=== PATIENT | female | born 1940 | race African-American/Black ===

== ENCOUNTER 2017-06-08 11:57 | Inpatient (IN) | payer OTHER, BC ==
[2017-06-08 12:04] VITALS: BMI 28.3
--- NOTE | 2017-06-08 12:07 | PDOC ---
History of Present Illness - General Chief Complaint: Rectal Bleed Stated Complaint: RECTAL BLEED Time Seen by Provider: 06/08/17 12:06 - History of Present Illness Initial Comments: 06/08/17 12:08 Ms. Herrera is a 77 yo female w/ pmh of benign L renal mass s/p partial nephrectomy in 2004, HTN, DM, HLD, prior lower GI bleed who presents c/o a 1 day history of crampy abdominal pain and blood per rectum. She reports this is similar to her prior episode however it has been less in volume. The patient denies chest pain, shortness of breath, headache and dizziness. Denies fever, chills, nausea, vomit, diarrhea and constipation. Denies dysuria, frequency, urgency and hematuria. Allergies:NKDA Past History - Past Medical History Allergies/Adverse Reactions: Allergies Allergy/AdvReac Type Severity Reaction Status Date / Time No Known Allergies Allergy Verified 06/08/17 12:00 Home Medications: Ambulatory Orders Atenolol [Tenormin -] 50 mg PO DAILY 12/30/15 Atorvastatin Ca [Lipitor] 10 mg PO HS 12/30/15 Buspirone HCl [Buspar -] 10 mg PO DAILY 12/30/15 Aspirin [ASA -] 81 mg PO DAILY 01/27/16 Ibuprofen 800 mg PO TID PRN 01/27/16 Omeprazole 40 mg PO DAILY 01/27/16 Anemia: No Asthma: No Cancer: No Cardiac Disorders: No CVA: No COPD: No CHF: No DVT: No Dementia: No Diabetes: Yes (boderline DM) GI Disorders: Yes (colonoscopy) Disorders: No HTN: Yes Hypercholesterolemia: Yes Liver Disease: No Seizures: No Thyroid Disease: No - Surgical History Abdominal Surgery: No Appendectomy: No Cardiac Surgery: No Cholecystectomy: No Lung Surgery: No Neurologic Surgery: No Orthopedic Surgery: No - Suicide/Smoking/Psychosocial Hx Smoking History: Former smoker Have you smoked in the past 12 months: Yes Number of Cigarettes Smoked Daily: 2 If you are a former smoker, when did you quit?: 5 YR AGO Information on smoking cessation initiated: No Hx Alcohol Use: No Drug/Substance Use Hx: No Substance Use Type: None Hx Substance Use Treatment: No Review of Systems - Review of Systems Comments:: 06/08/17 12:08 GENERAL/CONSTITUTIONAL: No fever or chills. No weakness. HEAD, EYES, EARS, NOSE AND THROAT: No change in vision. No ear pain or discharge. No sore throat. CARDIOVASCULAR: No chest pain or shortness of breath RESPIRATORY: No cough, wheezing, or hemoptysis. GASTROINTESTINAL: +Rectal bleeding as described. General abdominal cramping. No nausea, vomiting, diarrhea or constipation. GENITOURINARY: No dysuria, frequency, or change in urination. MUSCULOSKELETAL: No joint or muscle swelling or pain. No neck or back pain. SKIN: No rash NEUROLOGIC: No headache, vertigo, loss of consciousness, or change in strength/ sensation. ENDOCRINE: No increased thirst. No abnormal weight change HEMATOLOGIC/LYMPHATIC: No anemia, easy bleeding, or history of blood clots. ALLERGIC/IMMUNOLOGIC: No hives or skin allergy. 06/08/17 14:13 *Physical Exam - Vital Signs Last Vital Signs Temp Pulse Resp BP Pulse Ox 98.6 F 90 18 130/76 100 06/08/17 12:00 06/08/17 12:00 06/08/17 12:00 06/08/17 12:00 06/08/17 12:00 - Physical Exam Comments: 06/08/17 12:08 GENERAL: Awake, alert, and fully oriented, in no acute distress HEAD: No signs of trauma, normocephalic, atraumatic EYES: PERRLA, EOMI, sclera anicteric, conjunctiva clear ENT: Auricles normal inspection, hearing grossly normal, nares patent, oropharynx clear without exudates. Moist mucosa NECK: Normal ROM, supple, no lymphadenopathy, JVD, or masses LUNGS: No distress, speaks full sentences, clear to auscultation bilaterally HEART: Regular rate and rhythm, normal S1 and S2, no murmurs, rubs or gallops, peripheral pulses normal and equal bilaterally. ABDOMEN: +Diffusely tender to palpation. Soft, normoactive bowel sounds. No guarding, no rebound. No masses EXTREMITIES: Normal inspection, Normal range of motion, no edema. No clubbing or cyanosis. NEUROLOGICAL: Cranial nerves II through XII grossly intact. Normal speech, normal gait, no focal sensorimotor deficits SKIN: Warm, Dry, normal turgor, no rashes or lesions noted. ED Treatment Course - LABORATORY CBC & Chemistry Diagram: 06/08/17 13:13 06/08/17 13:13 Medical Decision Making - Medical Decision Making 06/08/17 14:13 Ms. Herrera is a 77 yo female w/ pmh as described who presents for evaluation of cramps and rectal bleeding. Imaging and labs ordered as below for evaluation. 06/08/17 15:41 CT revealed diverticulitis and diverticulosis. GI physician (Eber) paged. 06/08/17 17:04 Discussed case w/ Dr. Velázquez. Would like admitted with Ceftriaxone / Flagyl. 06/08/17 17:05 Inpatient team paged for admission. *DC/Admit/Observation/Transfer Diagnosis at time of Disposition: Diverticulitis Diverticulosis Qualifiers: Diverticulosis site: unspecified location Diverticulosis bleeding: diverticulosis with bleeding Qualified Code(s): K57.91 - Diverticulosis of intestine, part unspecified, without perforation or abscess with bleeding - Discharge Dispostion Admit: Yes - Referrals Referrals: Rosana Walker [Primary Care Provider] - - Patient Instructions - Post Discharge Activity
[2017-06-08 13:27] LABS: BASO % 0.5 % (0-2.0); EOS % 0.8 % (0-4.5); LYMPH % 11.1 % (8-40); MCH 29.8 pg (25.7-33.7); MCHC 33.4 g/dl (32.0-36.0); MEAN PLT VOLUME 7.5 fl (7.5-11.1); MONO % 7.8 % (3.8-10.2); NEUT % 79.8 % (42.8-82.8); PLATELET COUNT 264 K/MM3 (134-434); RBC 4.05 M/mm3 (3.60-5.2); RDW 12.5 % (11.6-15.6); WHITE BLOOD COUNT 12.1 K/mm3 (4.0-10.0)
[2017-06-08] MEDS ORDERED: ACETAMINOPHEN 1000 MG/100 ML VIAL (NON FORMULARY) IVPB ONE (13:33)
--- NOTE | 2017-06-08 13:49 | PDOC ---
Attending Attestation - Resident Resident Name: Alfred Barrientos - ED Attending Attestation I have performed the following: I have examined & evaluated the patient, The case was reviewed & discussed with the resident, I agree w/resident's findings & plan, Exceptions are as noted - HPI HPI: 06/08/17 13:46 77 year old female with pmh of benign L renal mass s/p partial nephrectomy in 2004, HTN, DM, HLD, diverticular bleed p/w LLQ pain and red blood per rectum. The patient reports LLQ pain. Has had prior hx of diverticular bleed. No fevers , chills, diarrhea. Does not take anticoagulants. - Physicial Exam PE: 06/08/17 13:48 GENERAL: Awake, alert, and fully oriented, in no acute distress. HEAD: No signs of trauma EYES: PERRLA, EOMI, sclera anicteric, conjunctiva clear ENT: Auricles normal inspection, hearing grossly normal, nares patent NECK: Normal ROM, supple LUNGS: Breath sounds equal, clear to auscultation bilaterally. No wheezes, and no crackles HEART: Regular rate and rhythm, normal S1 and S2, no murmurs, rubs or gallops ABDOMEN: Soft. No guarding, no rebound. No masses. TTP LLQ. EXTREMITIES: Normal range of motion, no edema. No clubbing or cyanosis. No cords, erythema, or tenderness NEUROLOGICAL: Cranial nerves II through XII grossly intact. Normal speech SKIN: Warm, Dry, normal turgor, no rashes or lesions noted. RECTAL: As per Resident - Medical Decision Making 06/08/17 13:49 Vital Signs Temp Pulse Resp BP Pulse Ox 98.6 F 90 18 130/76 100 06/08/17 12:00 06/08/17 12:00 06/08/17 12:00 06/08/17 12:00 06/08/17 12:00 Concerning for lower GI bleed such as diverticular bleed. Given LLQ pain, will need CT abdomen and pelvis. Labs, consult GI. 06/08/17 15:51 CBC, BMP 06/08/17 13:13 06/08/17 13:13 CMP Sodium 142 mmol/L (136-145) 06/08/17 13:13 Potassium 4.0 mmol/L (3.5-5.1) 06/08/17 13:13 Chloride 104 mmol/L (98-107) 06/08/17 13:13 Carbon Dioxide 28 mmol/L (21-32) 06/08/17 13:13 Anion Gap 10 (8-16) 06/08/17 13:13 BUN 24 mg/dL (7-18) H 06/08/17 13:13 Creatinine 1.2 mg/dL (0.55-1.02) H 06/08/17 13:13 Creat Clearance w eGFR 43.80 (>60) 06/08/17 13:13 Random Glucose 93 mg/dL (74-106) 06/08/17 13:13 Lactic Acid 0.7 mmol/L (0.0-2.0) 06/08/17 13:13 Calcium 9.3 mg/dL (8.5-10.1) 06/08/17 13:13 Total Bilirubin 0.7 mg/dL (0.2-1.0) D 06/08/17 13:13 AST 29 U/L (15-37) 06/08/17 13:13 ALT 24 U/L (12-78) 06/08/17 13:13 Alkaline Phosphatase 78 U/L (45-117) 06/08/17 13:13 Total Protein 7.2 g/dl (6.4-8.2) 06/08/17 13:13 Albumin 3.3 g/dl (3.4-5.0) L 06/08/17 13:13 Lipase 271 U/L (73-393) 06/08/17 13:[address] abdomen and pelvis reviewed. Acute diverticulitis. Will consult her GI physician for disposition. Will need antibiotics. Will reassess patient for bleeding. If the bleeding has stopped, and the pt's GI physician is okay with discharge, the patient can be discharged with antibiotics. However, if patient is still bleeding and/or GI physician recommends admission, will admit patient for lower GI bleed and diverticulitis.
[2017-06-08 13:57] LABS: ALBUMIN 3.3 g/dl (3.4-5.0); ALK PHOS 78 U/L (45-117); ANION GAP 10 (8-16); BILIRUBIN,TOTAL 0.7 mg/dL (0.2-1.0); BLOOD UREA NITROGEN 24 mg/dL (7-18); CALCIUM 9.3 mg/dL (8.5-10.1); CHLORIDE 104 mmol/L (98-107); CO2 28 mmol/L (21-32); CREATININE 1.2 mg/dL (0.55-1.02); GLUCOSE,RANDOM 93 mg/dL (74-106); SGOT/AST 29 U/L (15-37); SGPT/ALT 24 U/L (12-78); SODIUM 142 mmol/L (136-145); TOT PROT 7.2 g/dl (6.4-8.2)
[2017-06-08 13:58] LABS: LIPASE 271 U/L (73-393)
[2017-06-08] MEDS ORDERED: ACETAMINOPHEN INJECTION 100 ML IVPB ONE (15:44)
[2017-06-08] MEDS ORDERED: CEFTRIAXONE 1,000 MG in DEXTROSE 5%-WATER - 50 ML IVPB ONE (17:09)
--- NOTE | 2017-06-08 17:29 | HP ---
CHIEF COMPLAINT: Rectal bleeding x1 day PCP: Dr. Walker HISTORY OF PRESENT ILLNESS: 77 year old woman with pmh of HTN, HLD, partial nephrectomy for benign renal mass (2004), prior episode of hematochezia in 01/2016, who presents with one day of rectal bleeding beginning this AM. Pt was in her normal state of healthy last night, asymptomatic with no GI symptoms. This AM, pt awoke with crampy, bandlike lower abdominal, worsened by ambulation, non-radiating with no alleviating factors. Pt defecated in AM and noted roughly 1 cup of BRB in toilet and poorly formed stool. Pt endorses minimal pain with defecation, no sensation of straining or incomplete defecation, no mucoid BM, no diarrhea or change in stool caliber. Pt endorses 3-4 episodes of similar hematochezia in AM and then came to ED. Pt denies any recent GI symptoms, sick contacts, changes in diet, chronic GI conditions. Denies f/c/n/v, LOVING, CP, sob, cough, back pain, dysuria, constipation, recent diarrhea, rashes, epistaxis, hemoptysis or hematochezia. Pt takes ASA. Follows with Dr. Velázquez, with most recent colonoscopy in early 2017, with normal results per pt. Pt with prior admission in 01/2016 for diverticular GI bleed with spontaneous resolution. ER course was notable for: (1)CT Ab/Pelvis notable for acute diverticulitis (2)WBC 12.1. Hgb 12, Cr 1.2 (3)FOBT + Recent Travel: None PAST MEDICAL HISTORY: HTN HLD DM Prior diverticular bleed PAST SURGICAL HISTORY: L renal neprectomy in 2004 for benign renal mass Social History: Smoking: former smoker, quit 5 years ago, 2 cigs per day Alcohol: No Drugs: No Family History: NC Allergies No Known Allergies Allergy (Verified 06/08/17 12:00) HOME MEDICATIONS: Home Medications Medication Instructions Recorded Atenolol [Tenormin -] 50 mg PO DAILY 12/30/15 Atorvastatin Ca [Lipitor] 10 mg PO HS 12/30/15 Buspirone HCl [Buspar -] 10 mg PO DAILY 12/30/15 Aspirin [ASA -] 81 mg PO DAILY 01/27/16 Ibuprofen 800 mg PO TID PRN 01/27/16 Omeprazole 40 mg PO DAILY 01/27/16 REVIEW OF SYSTEMS CONSTITUTIONAL: Absent: fever, chills, diaphoresis, generalized weakness, malaise, loss of appetite, weight change HEENT: Absent: rhinorrhea, nasal congestion, throat pain, throat swelling, difficulty swallowing, mouth swelling, ear pain, eye pain, visual changes CARDIOVASCULAR: Absent: chest pain, syncope, palpitations, irregular heart rate, lightheadedness , peripheral edema RESPIRATORY: Absent: cough, shortness of breath, dyspnea with exertion, orthopnea, wheezing, stridor, hemoptysis GASTROINTESTINAL: cramping, abdominal pain, hematochezia Absent: abdominal distension, nausea, vomiting, diarrhea, constipation, melena GENITOURINARY: Absent: dysuria, frequency, urgency, hesitancy, hematuria, flank pain, genital pain MUSCULOSKELETAL: Pain in L knee Absent: myalgia, joint swelling, back pain, neck pain SKIN: Absent: rash, itching, pallor HEMATOLOGIC/IMMUNOLOGIC: Absent: easy bleeding, easy bruising, lymphadenopathy, frequent infections ENDOCRINE: Absent: unexplained weight gain, unexplained weight loss, heat intolerance, cold intolerance NEUROLOGIC: Absent: headache, focal weakness or paresthesias, dizziness, unsteady gait, seizure, mental status changes, bladder or bowel incontinence PHYSICAL EXAMINATION Vital Signs - 24 hr 06/08/17 06/08/17 12:00 12:25 Temperature 98.6 F Pulse Rate 90 Respiratory 18 Rate Blood Pressure 130/76 O2 Sat by Pulse 100 97 Oximetry (%) GENERAL: Elderly woman in NAD, A&Ox3 HEAD: NCAT EYES: Pupils equal, round and reactive to light, extraocular movements intact, sclera anicteric, conjunctiva clear. No lid lag. EARS, NOSE, THROAT: No evidence of epistaxis, nasal septal defects. Ears normal , nares patent, oropharynx clear without exudates. Moist mucous membranes. NECK: Normal range of motion, supple without lymphadenopathy, JVD, or masses. LUNGS: Decreased air entry at bases. Otherwise, clear to auscultation bilaterally. No wheezes, and no crackles. No accessory muscle use. HEART: Regular rate and rhythm, normal S1 and S2 without murmur, rub or gallop. ABDOMEN: TTP in all four quadrants, most intensely in LLQ. Soft, ND, normoactive bowel sounds, voluntary guarding, no masses. No hepatomegaly or splenomegaly. MUSCULOSKELETAL: Normal range of motion at all joints. No bony deformities or tenderness. No CVA tenderness. UPPER EXTREMITIES: 2+ pulses, warm, well-perfused. No cyanosis. No clubbing. No peripheral edema. LOWER EXTREMITIES: 2+ DP/PT pulses, warm, well-perfused. No calf tenderness. No peripheral edema. Restricted movement in knees secondary to arthritic pain. NEUROLOGICAL: Cranial nerves II-XII intact. Normal speech. Gait not evaluated. PSYCHIATRIC: Cooperative. Good eye contact. Appropriate mood and affect. Pleasant Laboratory Results - last 24 hr CBC, BMP 06/08/17 13:13 06/08/17 13:13 06/08/17 06/08/17 06/08/17 12:35 13:13 13:13 WBC 12.1 H D RBC 4.05 D Hgb 12.0 D Hct 36.0 D MCV 89.0 MCH 29.8 MCHC 33.4 RDW 12.5 Plt Count 264 D MPV 7.5 D Neutrophils % 79.8 Lymphocytes % 11.1 D Monocytes % 7.8 Eosinophils % 0.8 Basophils % 0.5 Sodium 142 Potassium 4.0 Chloride 104 Carbon Dioxide 28 Anion Gap 10 BUN 24 H Creatinine 1.2 H Creat Clearance w eGFR 43.80 Random Glucose 93 Lactic Acid Calcium 9.3 Total Bilirubin 0.7 D AST 29 ALT 24 Alkaline Phosphatase 78 Total Protein 7.2 Albumin 3.3 L Lipase 271 Stool Occult Blood Positive 06/08/17 13:13 WBC RBC Hgb Hct MCV MCH MCHC RDW Plt Count MPV Neutrophils % Lymphocytes % Monocytes % Eosinophils % Basophils % Sodium Potassium Chloride Carbon Dioxide Anion Gap BUN Creatinine Creat Clearance w eGFR Random Glucose Lactic Acid 0.7 Calcium Total Bilirubin AST ALT Alkaline Phosphatase Total Protein Albumin Lipase Stool Occult Blood No micro CT ab/pelvis 06/08 - Evidence of sigmoid diverticulitis. No evidence of fluid collection or free air. CXR 06/08 - No acute disease ASSESSMENT/PLAN: 77 year old woman with pmh of HTN, HLD, partial nephrectomy for benign renal mass (2004), prior episode of hematochezia in 01/2016, who presents with one day of rectal bleeding beginning this AM. #Hematochezia - Hgb 12 on presentation; pt with one further episode on presentation - GI consulted - Dr. Velázquez - Serial CBCs q8h - monitor for further bleeding - Hold home ASA - Rocephin/flagyl - type and cross, PT/INR - Will require repeat colonoscopy as outpt 6-8 weeks per GI - Morphine for pain control - Zofran for n/v #JACQUES - Cr 1.2 - IVFs - Trend Cr - Avoid nephrotoxic agents - Renal f/u as outpt #Leukocytosis - WBC 12; No fever on presentation, vitals stable - trend fever, WBC count - Serial CBCs #HTN - Continue with home BB - vitals q4h #DM - unknown if DM. - ISS, BGMs q4h - Hgb A1c #HLD - c/w home statin FEN NS 75cc/hr Daily lytes NPO for now PPX PPI SCDs Plan discussed with attending, Dr. Cristóbal Mercado, PGY1 Visit type - Emergency Visit Emergency Visit: Yes Care time: The patient presented to the Emergency Department on the above date and was hospitalized for further evaluation of their emergent condition. - New Patient This patient is new to me today: Yes Date on this admission: 06/08/17 - Critical Care Critical Care patient: No Hospitalist Screening - Colonoscopy Questionnaire Colonoscopy Questionnaire: Colonoscopy Questionnaire - Patient: 50 - 75 years old and never had a screening colonoscopy: No History of colon or rectal polyps, or CA: No History of IBD, Crohn's disease or UC: No History of abdominal radiation therapy as a child: Unknown - Relative: 1 with colon or rectal CA, or polyps at age 60 or younger: Unknown Colon or rectal CA diagnosed at age 45 or younger: Unknown Multiple relatives with colon or rectal CA: Unknown - Outcome: Screening Result: Negative Screen
[2017-06-08] MEDS ORDERED: morphine CARPU-JECT 2 MG/1 ML DISP.SYRIN IVPUSH ONE (17:39)
[2017-06-08] MEDS ORDERED: CEFTRIAXONE 1 GM/50 ML BAG ONE (17:42)
[2017-06-08] MEDS: SODIUM CHLORIDE 0.45% 1,000 ML IV SCH (17:42)
[2017-06-08] MEDS ORDERED: morphine SULFATE 4 MG/ML VIAL ONE (18:00)
--- NOTE | 2017-06-08 18:34 | PN ---
Teaching Attending Note Name of Resident: Silvestre Mercado ATTENDING PHYSICIAN STATEMENT I saw and evaluated the patient. I reviewed the resident's note and discussed the case with the resident. I agree with the resident's findings and plan as documented. SUBJECTIVE:77yo F with PMH HTN, DM, R renal mass s/p partial nephrectomy and recent diverticular bleed in January 2016 presented to the Er wt diffuse abdominal pain with hematochezia. states she was in normal state pf health till earlier today and went to the bathroom where she developed diffuse crampy abdominal pain and noted about a cup of bright red blood in the toilet. denies Cp, SOB, fever, chills, N/V/C/D. This is similar in episode to recent bleed only not as bad. states she did have another bloody BM since arrival to the ER. did have colonoscopy last year and reports it as normal. did take her medications this morning OBJECTIVE: Last Vital Signs Temp Pulse Resp BP Pulse Ox 98.6 F 90 18 130/76 97 06/08/17 12:00 06/08/17 12:00 06/08/17 12:00 06/08/17 12:06/08/17 12:25 General NAD CV S1 S2 RRR no murmur/rub/gallop Lungs CTA B/L No wheezing/rales/rhonchi Abdomen soft diffusely tender worse in LLQ. normoactive BS no guarding or rebound Extremities no pedal edema ASSESSMENT AND PLAN: 77yo F with PMH HTN, DM, R renal mass s/p partial nephrectomy and recent diverticular bleed in January 2017 presented to the Er wt diffuse abdominal pain with hematochezia. 1. Hematochezia- likely diverticular bleed. may not show tachycardia as on betablocker. trend Hgb Q8H. check coags, type and screen. Start NPO, IVF, pain and nausea control. hold oral medications. never received txn in the past. 2. Acute Diverticulitis- NPO, IVF, Ceftriaxone and Flagyl. GI consulted. will need repeat colonoscopy in 6-8 weeks 3. JACQUES- due to dehydration. IVF. consider renal u/s if worsens. 4. HTN- cont atenolol for now 5. DM- unsure if DM. A1c in 2016 was normal and not on home medication. check A1c 6. R renal mass s/p nephrectomy 7. DVT ppx- SCD.
[2017-06-08] MEDS ORDERED: ONDANSETRON 4 MG/2 ML VIAL IVPUSH PRN (18:58)
[2017-06-08] MEDS ORDERED: morphine SULFATE 4 MG/ML VIAL IVPUSH PRN (19:09)
[2017-06-08 22:04] LABS: BASO % 0.3 % (0-2.0); EOS % 1.2 % (0-4.5); HEMATOCRIT 33.3 % (32.4-45.2); HEMOGLOBIN 11.2 GM/dL (10.7-15.3); LYMPH % 12.7 % (8-40); MCH 30.2 pg (25.7-33.7); MCHC 33.8 g/dl (32.0-36.0); MEAN CELL VOLUME 89.4 fl (80-96); MEAN PLT VOLUME 8.2 fl (7.5-11.1); MONO % 8.3 % (3.8-10.2); NEUT % 77.5 % (42.8-82.8); PLATELET COUNT 257 K/MM3 (134-434); RBC 3.72 M/mm3 (3.60-5.2); RDW 12.5 % (11.6-15.6); WHITE BLOOD COUNT 11.8 K/mm3 (4.0-10.0)
[2017-06-08 22:18] LABS: ALBUMIN 3.1 g/dl (3.4-5.0); ALK PHOS 75 U/L (45-117); ANION GAP 6 (8-16); BILIRUBIN,TOTAL 0.5 mg/dL (0.2-1.0); BLOOD UREA NITROGEN 21 mg/dL (7-18); CHLORIDE 106 mmol/L (98-107); CO2 27 mmol/L (21-32); CREATININE 1.1 mg/dL (0.55-1.02); GLUCOSE,RANDOM 80 mg/dL (74-106); POTASSIUM 3.8 mmol/L (3.5-5.1); SGOT/AST 24 U/L (15-37); SGPT/ALT 21 U/L (12-78); SODIUM 139 mmol/L (136-145); TOT PROT 6.8 g/dl (6.4-8.2)
[2017-06-08 22:29] LABS: INR 1.12 (0.82-1.09); PROTHROMBIN TIME (PATIENT) 12.7 SEC (9.98-11.88)
[2017-06-08] MEDS: ATORVASTATIN CA 10 MG TABLET (FP) PO SCH (23:34)
[2017-06-08] MEDS: INSULIN SLIDING SCALE (NOVOLOG) 1 VIAL SQ SCH (23:49)
[2017-06-09] MEDS: INSULIN SLIDING SCALE (NOVOLOG) 1 VIAL SQ SCH ×4 (07:06→22:31)
[2017-06-09 07:07] LABS: BASO % 0.5 % (0-2.0); EOS % 1.8 % (0-4.5); HEMOGLOBIN 11.3 GM/dL (10.7-15.3); LYMPH % 8.7 % (8-40); MCH 29.8 pg (25.7-33.7); MCHC 33.4 g/dl (32.0-36.0); MEAN CELL VOLUME 89.3 fl (80-96); MEAN PLT VOLUME 7.9 fl (7.5-11.1); MONO % 8.3 % (3.8-10.2); NEUT % 80.7 % (42.8-82.8); PLATELET COUNT 253 K/MM3 (134-434); RDW 12.5 % (11.6-15.6)
[2017-06-09 07:16] LABS: INR 1.12 (0.82-1.09); PROTHROMBIN TIME (PATIENT) 12.6 SEC (9.98-11.88)
[2017-06-09 07:34] LABS: ANION GAP 8 (8-16); BLOOD UREA NITROGEN 17 mg/dL (7-18); CALCIUM 9.3 mg/dL (8.5-10.1); CHLORIDE 104 mmol/L (98-107); CO2 28 mmol/L (21-32); CREATININE 1.1 mg/dL (0.55-1.02); GLUCOSE,RANDOM 89 mg/dL (74-106); MAGNESIUM 1.9 mg/dL (1.8-2.4); PHOSPHOROUS 3.4 mg/dL (2.5-4.9); SGOT/AST 23 U/L (15-37); SGPT/ALT 20 U/L (12-78); SODIUM 140 mmol/L (136-145)
[2017-06-09 07:35] LABS: ALK PHOS 73 U/L (45-117); BILIRUBIN,TOTAL 0.6 mg/dL (0.2-1.0); TOT PROT 6.6 g/dl (6.4-8.2)
[2017-06-09] MEDS: SODIUM CHLORIDE 0.45% 1,000 ML IV SCH ×2 (08:00→18:54)
--- NOTE | 2017-06-09 08:47 | EKG ---
Test Reason : Blood Pressure : / mmHG Vent. Rate : 081 BPM Atrial Rate : 081 BPM P-R Int : 144 ms QRS Dur : 078 ms QT Int : 358 ms P-R-T Axes : 066 007 049 degrees QTc Int : 415 ms NORMAL SINUS RHYTHM NORMAL ECG WHEN COMPARED WITH ECG OF 16-DEC-2016 12:52, NO SIGNIFICANT CHANGE WAS FOUND Confirmed by AUSTEN SHERMAN MD ([id number]) on 06/09/2017 8:47:01 AM Referred By: Confirmed By:AUSTEN SHERMAN MD
[2017-06-09] MEDS ORDERED: PT OWN MED DRAWER 7, Y5N ONE (10:24)
[2017-06-09] MEDS ORDERED: cefTRIAXone SODIUM 1 GM VIAL ONE (10:25)
[2017-06-09] MEDS ORDERED: DEXTROSE 5%-WATER - 50 ML IVPB ONE (10:25)
[2017-06-09] MEDS: CEFTRIAXONE 1 GM in DEXTROSE 5%-WATER - 50 ML IVPB SCH (10:30)
[2017-06-09] MEDS: ATENOLOL 50 MG TABLET (FP) PO SCH (10:37)
--- NOTE | 2017-06-09 13:37 | PN ---
Progress Note (short form) - Note Progress Note: continues to have diffuse abdominal pain. no more BM or BRBPR. requesting to eat. denies CP, SOB, fever, chills, N/V/C/D. admits to straining for 4 days then taking some milk of mag day prior to BRBPR. Current Medications Generic Name Dose Route Start Last Admin Trade Name Freq PRN Reason Stop Dose Admin Atenolol 50 mg 06/09/17 10:00 06/09/17 10:37 Tenormin - PO 50 mg DAILY KITA Administration Atorvastatin Calcium 10 mg 06/08/17 22:00 06/08/17 23:34 Lipitor - PO 10 mg HS KITA Administration Buspirone HCl 10 mg 06/09/17 10:00 Buspar - PO DAILY KITA Sodium Chloride 1,000 mls @ 75 mls/hr 06/08/17 17:30 06/09/17 08:00 1/2 Normal Saline IV 75 mls/hr ASDIR KITA Administration Ceftriaxone Sodium 1 gm/ 50 mls @ 100 mls/hr 06/09/17 10:00 06/09/17 10:30 Dextrose IVPB 100 mls/hr DAILY KITA Administration Protocol Metronidazole 500 mg in 100 mls @ 100 mls/hr 06/09/17 02:00 06/09/17 10:30 Flagyl 500mg Premixed Ivpb - IVPB 100 mls/hr Q8H-IV KITA Administration Insulin Aspart 1 vial 06/08/17 22:00 06/09/17 07:06 Novolog Vial Sliding Scale - SQ Not Given ACHS KITA Protocol Morphine Sulfate 2 mg 06/08/17 19:09 06/08/17 23:36 Morphine Sulfate IVPUSH 2 mg Q4H PRN Administration PAIN LEVEL 6-10 Ondansetron HCl 4 mg 06/08/17 18:58 Zofran Injection IVPUSH Q4H PRN NAUSEA AND/OR VOMITING Last Vital Signs Temp Pulse Resp BP Pulse Ox 98 F 81 18 151/76 98 06/09/17 10:00 06/09/17 10:00 06/09/17 10:00 06/09/17 10:00 06/09/17 01:31 General NAD CV S1 S2 RRR no murmur/rub/gallop Lungs CTA B/L No wheezing/rales/rhonchi Abdomen soft diffusely tender worse in LLQ. normoactive BS no guarding or rebound Extremities no pedal edema CBCD WBC 11.0 K/mm3 (4.0-10.0) H 06/09/17 06:45 RBC 3.80 M/mm3 (3.60-5.2) 06/09/17 06:45 Hgb 11.3 GM/dL (10.7-15.3) 06/09/17 06:45 Hct 34.0 % (32.4-45.2) 06/09/17 06:45 MCV 89.3 fl (80-96) 06/09/17 06:45 MCHC 33.4 g/dl (32.0-36.0) 06/09/17 06:45 RDW 12.5 % (11.6-15.6) 06/09/17 06:45 Plt Count 253 K/MM3 (134-434) 06/09/17 06:45 MPV 7.9 fl (7.5-11.1) 06/09/17 06:45 CMP Sodium 140 mmol/L (136-145) 06/09/17 06:45 Potassium 4.0 mmol/L (3.5-5.1) 06/09/17 06:45 Chloride 104 mmol/L (98-107) 06/09/17 06:45 Carbon Dioxide 28 mmol/L (21-32) 06/09/17 06:45 Anion Gap 8 (8-16) 06/09/17 06:45 BUN 17 mg/dL (7-18) 06/09/17 06:45 Creatinine 1.1 mg/dL (0.55-1.02) H 06/09/17 06:45 Creat Clearance w eGFR 48.42 (>60) 06/09/17 06:45 Calcium 9.3 mg/dL (8.5-10.1) 06/09/17 06:45 Total Bilirubin 0.6 mg/dL (0.2-1.0) 06/09/17 06:45 AST 23 U/L (15-37) 06/09/17 06:45 ALT 20 U/L (12-78) 06/09/17 06:45 Alkaline Phosphatase 73 U/L (45-117) 06/09/17 06:45 Total Protein 6.6 g/dl (6.4-8.2) 06/09/17 06:45 Albumin 3.0 g/dl (3.4-5.0) L 06/09/17 06:45 ASSESSMENT AND PLAN: 77yo F with PMH HTN, DM, R renal mass s/p partial nephrectomy and recent diverticular bleed in January 2017 presented to the Er wtih diffuse abdominal pain with hematochezia. 1. Hematochezia- likely diverticular bleed. no repeat episodes. likely due to constipation and straining followed by osmotic diarrhea. Hgb has been stable. will trial on liquids to see if tolerate. check UA to evaluate if diffuse pain is from infection. GI consulted. informed pt if develops pain while eating will need to stop. 2. Acute Diverticulitis- trials of clears. Cont IVF, Ceftriaxone and Flagyl day 2. GI consulted. will need repeat colonoscopy in 6-8 weeks 3. JACQUES- due to dehydration. improved 4. HTN- cont atenolol for now 5. DM- unsure if DM. A1c in 2016 was normal and not on home medication. check A1c 6. R renal mass s/p nephrectomy 7. DVT ppx- SCD. Visit type - Emergency Visit Emergency Visit: Yes ED Registration Date: 06/08/17 Care time: The patient presented to the Emergency Department on the above date and was hospitalized for further evaluation of their emergent condition. - New Patient This patient is new to me today: No - Critical Care Critical Care patient: No - Discharge Referral [facility]erred to [facility] Med [facility] No
[2017-06-09] MEDS: busPIRone HCL 10 MG TABLET (FP) PO SCH (18:55)
[2017-06-09] MEDS: ATORVASTATIN CA 10 MG TABLET (FP) PO SCH (22:26)
[2017-06-09 22:34] LABS: URINE APPEARANCE SLCLOUDY; URINE BILIRUBIN NEGATIVE (<2.0 mg/dL); URINE COLOR LTYELLOW; URINE GLUCOSE (UA) NEGATIVE (NEGATIVE); URINE KETONE NEGATIVE (NEGATIVE); URINE NITRITE NEGATIVE (NEGATIVE); URINE UROBILINOGEN NEGATIVE mg/dL (0.2-1.0)
[2017-06-09 22:36] LABS: URINE LEUK ESTERASE 3+ (NEGATIVE); URINE PROTEIN 1+ (NEGATIVE)
[2017-06-09 22:37] LABS: EPI CELLS FEW /HPF (FEW)
[2017-06-10 06:49] LABS: HEMATOCRIT 33.6 % (32.4-45.2); HEMOGLOBIN 11.4 GM/dL (10.7-15.3); MCH 30.5 pg (25.7-33.7); MCHC 33.9 g/dl (32.0-36.0); MEAN CELL VOLUME 89.8 fl (80-96); MEAN PLT VOLUME 7.8 fl (7.5-11.1); PLATELET COUNT 257 K/MM3 (134-434); RBC 3.74 M/mm3 (3.60-5.2); RDW 12.4 % (11.6-15.6); WHITE BLOOD COUNT 9.4 K/mm3 (4.0-10.0)
[2017-06-10] MEDS: INSULIN SLIDING SCALE (NOVOLOG) 1 VIAL SQ SCH ×2 (07:04→12:01)
[2017-06-10] MEDS ORDERED: cefTRIAXone SODIUM 1 GM VIAL ONE (09:15)
[2017-06-10] MEDS ORDERED: PT OWN MED DRAWER 7, Y5N ONE (09:15)
[2017-06-10] MEDS ORDERED: DEXTROSE 5%-WATER - 50 ML IVPB ONE (09:15)
[2017-06-10] MEDS: ATENOLOL 50 MG TABLET (FP) PO SCH (09:48)
[2017-06-10] MEDS: CEFTRIAXONE 1 GM in DEXTROSE 5%-WATER - 50 ML IVPB SCH (09:49)
[2017-06-10] MEDS: busPIRone HCL 10 MG TABLET (FP) PO SCH (09:50)
--- NOTE | 2017-06-10 10:22 | DS ---
Physical Exam: SUBJECTIVE: Patient seen and examined OBJECTIVE: Vital Signs Period Temp Pulse Resp BP Sys/Sylvester Pulse Ox Last 24 Hr 98.2 F-98.8 F 61-74 18-19 126-157/66-88 98-98 PHYSICAL EXAM GENERAL: The patient is awake, alert, and fully oriented, in no acute distress. HEAD: Normal with no signs of trauma. EYES: PERRL, extraocular movements intact, sclera anicteric, conjunctiva clear. ENT: Ears normal, nares patent, oropharynx clear without exudates, moist mucous membranes. NECK: Trachea midline, full range of motion, supple. LUNGS: Breath sounds equal, clear to auscultation bilaterally, no wheezes, no crackles, no accessory muscle use. HEART: Regular rate and rhythm, S1, S2 without murmur, rub or gallop. ABDOMEN: Soft, nontender, nondistended, normoactive bowel sounds, no guarding, no rebound, no hepatosplenomegaly, no masses. EXTREMITIES: 2+ pulses, warm, well-perfused, no edema. NEUROLOGICAL: Cranial nerves II through XII grossly intact. Normal speech, gait not observed. PSYCH: Normal mood, normal affect. SKIN: Warm, dry, normal turgor, no rashes or lesions noted. LABS Laboratory Results - last 24 hr 06/09/17 06/09/17 06/09/17 06:00 13:52 17:20 WBC RBC Hgb Hct MCV MCH MCHC RDW Plt Count MPV POC Glucometer 86 86 Hemoglobin A1c % 5.8 Urine Color Urine Appearance Urine pH Ur Specific [place] Urine Protein Urine Glucose (UA) Urine Ketones Urine Blood Urine Nitrite Urine Bilirubin Urine Urobilinogen Ur Leukocyte Esterase Urine WBC (Auto) Urine RBC (Auto) Ur Epithelial Cells 06/09/17 06/09/17 06/10/17 22:00 22:30 05:36 WBC RBC Hgb Hct MCV MCH MCHC RDW Plt Count MPV POC Glucometer 85 84 Hemoglobin A1c % Urine Color Ltyellow Urine Appearance Slcloudy Urine pH 7.0 D Ur Specific [place] 1.008 Urine Protein 1+ H Urine Glucose (UA) Negative Urine Ketones Negative Urine Blood Negative Urine Nitrite Negative Urine Bilirubin Negative Urine Urobilinogen Negative Ur Leukocyte Esterase 3+ H D Urine WBC (Auto) 27 Urine RBC (Auto) <1 Ur Epithelial Cells Few 06/10/17 06:35 WBC 9.4 RBC 3.74 Hgb 11.4 Hct 33.6 MCV 89.8 MCH 30.5 MCHC 33.9 RDW 12.4 Plt Count 257 MPV 7.8 POC Glucometer Hemoglobin A1c % Urine Color Urine Appearance Urine pH Ur Specific [place] Urine Protein Urine Glucose (UA) Urine Ketones Urine Blood Urine Nitrite Urine Bilirubin Urine Urobilinogen Ur Leukocyte Esterase Urine WBC (Auto) Urine RBC (Auto) Ur Epithelial Cells HOSPITAL COURSE: Date of Admission:06/08/17 Date of Discharge: 06/10/17 Discharge Summary Reason For Visit: DIVERTICULOSIS OF INTESTINE; DVT Current Active Problems Diverticulitis (Acute) Diverticulosis (Acute) - Instructions Referrals: Rosana Walker [Primary Care Provider] - - Home Medications Comprehensive Discharge Medication List: Ambulatory Orders Atenolol [Tenormin -] 50 mg PO DAILY 12/30/15 Atorvastatin Ca [Lipitor] 10 mg PO HS 12/30/15 Buspirone HCl [Buspar -] 10 mg PO DAILY 12/30/15 Aspirin [ASA -] 81 mg PO DAILY 01/27/16 Ibuprofen 800 mg PO TID PRN 01/27/16 Omeprazole 40 mg PO DAILY 01/27/16 - Discharge Referral Referred to [facility] Med P.C.: No
--- NOTE | 2017-06-10 11:25 | PN ---
Teaching Attending Note Name of Resident: Patricia Blunt ATTENDING PHYSICIAN STATEMENT I saw and evaluated the patient. I reviewed the resident's note and discussed the case with the resident. I agree with the resident's findings and plan as documented. SUBJECTIVE:states abdominal pain has improved. continues to have some in LLQ. tolerating liquid diet. denies Cp, SOB, fever, chills, N/V/C/D, BRBPR or melena OBJECTIVE: Last Vital Signs Temp Pulse Resp BP Pulse Ox 98.6 F 66 18 130/75 98 06/10/17 10:00 06/10/17 10:00 06/10/17 10:00 06/10/17 10:00 06/10/17 09:00 General NAD Abdomen soft NT/ND ASSESSMENT AND PLAN: 77yo F with PMH HTN, DM, R renal mass s/p partial nephrectomy and recent diverticular bleed in January 2017 presented to the Er wtih diffuse abdominal pain with hematochezia. 1. Hematochezia- likely diverticular bleed. no repeat episodes. tolerating liquid diet. will advance. Hgb stable. has not been seen by GI yet. multiple calls yesterday and one placed this AM. would benefit from repeat colonsocopy but can likely be done as outpatient as pt has had no bleeding with stable Hgb. 2. Acute Diverticulitis-advance diet. on Ceftriaxone and Flagyl day 2. GI consulted. will need repeat colonoscopy in 6-8 weeks 3. UTI- likely cause of abdominal pain. nothing elicited on exam. will be treated with abx for diverticulitis 4. JACQUES- due to dehydration. improved 5. HTN- cont atenolol for now 6. DM- does NOT have dx of DM. a1c 5.8. 7. R renal mass s/p nephrectomy 8. DVT ppx- SCD. 9. d/c home if tolerating diet. can f/u Gi as outpatient
[2017-06-10] MEDS ORDERED: HYDROCORTISONE ACETATE 25 MG/SUPP.RECT RC ONE (12:10)
--- NOTE | 2017-06-10 15:04 | PN ---
Physical Exam: SUBJECTIVE: Patient seen and examined patient resting in bed NAD, had a blood streaked BM this morning. tolerated clears for breakfast with mild nausea but no vomiting. no abd pain at rest but + mild LLQ pain when eating or to palpation. denies f/c. OBJECTIVE: Vital Signs Period Temp Pulse Resp BP Sys/Sylvester Pulse Ox Last 24 Hr 98.2 F-98.8 F 61-68 18-19 126-157/73-88 98-98 GENERAL: The patient is awake, alert, and fully oriented, in no acute distress. HEAD: Normal with no signs of trauma. EYES: PERRL, extraocular movements intact, sclera anicteric, conjunctiva clear. No ptosis. ENT: moist mucous membranes. NECK: supple. LUNGS: Breath sounds equal, clear to auscultation bilaterally HEART: Regular rate and rhythm, S1, S2 ABDOMEN: Soft, mildly tender LLQ, nondistended, normoactive bowel sounds, no guarding, no rebound, no masses. EXTREMITIES: 2+ pulses, warm, well-perfused, no edema. NEUROLOGICAL: Cranial nerves II through XII grossly intact. Normal speech, gait not observed. PSYCH: Normal mood, normal affect. SKIN: Warm, dry Laboratory Results - last 24 hr 06/09/17 06/09/17 06/09/17 06:00 17:20 22:00 WBC RBC Hgb Hct MCV MCH MCHC RDW Plt Count MPV POC Glucometer 86 Hemoglobin A1c % 5.8 Urine Color Ltyellow Urine Appearance Slcloudy Urine pH 7.0 D Ur Specific [place] 1.008 Urine Protein 1+ H Urine Glucose (UA) Negative Urine Ketones Negative Urine Blood Negative Urine Nitrite Negative Urine Bilirubin Negative Urine Urobilinogen Negative Ur Leukocyte Esterase 3+ H D Urine WBC (Auto) 27 Urine RBC (Auto) <1 Ur Epithelial Cells Few 06/09/17 06/10/17 06/10/17 22:30 05:36 06:35 WBC 9.4 RBC 3.74 Hgb 11.4 Hct 33.6 MCV 89.8 MCH 30.5 MCHC 33.9 RDW 12.4 Plt Count 257 MPV 7.8 POC Glucometer 85 84 Hemoglobin A1c % Urine Color Urine Appearance Urine pH Ur Specific [place] Urine Protein Urine Glucose (UA) Urine Ketones Urine Blood Urine Nitrite Urine Bilirubin Urine Urobilinogen Ur Leukocyte Esterase Urine WBC (Auto) Urine RBC (Auto) Ur Epithelial Cells 06/10/17 11:59 WBC RBC Hgb Hct MCV MCH MCHC RDW Plt Count MPV POC Glucometer 115 Hemoglobin A1c % Urine Color Urine Appearance Urine pH Ur Specific [place] Urine Protein Urine Glucose (UA) Urine Ketones Urine Blood Urine Nitrite Urine Bilirubin Urine Urobilinogen Ur Leukocyte Esterase Urine WBC (Auto) Urine RBC (Auto) Ur Epithelial Cells Active Medications Generic Name Dose Route Start Last Admin Trade Name Freq PRN Reason Stop Dose Admin Atenolol 50 mg 06/09/17 10:00 06/10/17 09:48 Tenormin - PO 50 mg DAILY KITA Administration Atorvastatin Calcium 10 mg 06/08/17 22:00 06/09/17 22:26 Lipitor - PO 10 mg HS KITA Administration Buspirone HCl 10 mg 06/09/17 10:00 06/10/17 09:50 Buspar - PO 10 mg DAILY KITA Administration Sodium Chloride 1,000 mls @ 75 mls/hr 06/08/17 17:30 06/09/17 18:54 1/2 Normal Saline IV Not Given ASDIR KITA Ceftriaxone Sodium 1 gm/ 50 mls @ 100 mls/hr 06/09/17 10:00 06/10/17 09:49 Dextrose IVPB 100 mls/hr DAILY KITA Administration Protocol Metronidazole 500 mg in 100 mls @ 100 mls/hr 06/09/17 02:00 06/10/17 09:49 Flagyl 500mg Premixed Ivpb - IVPB 100 mls/hr Q8H-IV KITA Administration Insulin Aspart 1 vial 06/08/17 22:00 06/10/17 12:01 Novolog Vial Sliding Scale - SQ Not Given ACHS KITA Protocol Morphine Sulfate 2 mg 06/08/17 19:09 06/08/17 23:36 Morphine Sulfate IVPUSH 2 mg Q4H PRN Administration PAIN LEVEL 6-10 Ondansetron HCl 4 mg 06/08/17 18:58 Zofran Injection IVPUSH Q4H PRN NAUSEA AND/OR VOMITING ASSESSMENT/PLAN: 77 year old woman with pmh of HTN, HLD, partial nephrectomy for benign renal mass (2004), prior episode of hematochezia in 01/2016, who presents with one day of rectal bleeding beginning Hematochezia -secondary to diverticular bleed; acute diverticulitis seen on CT -current episode due to hemorrhoidal bleed per GI; will treat with suppository - Hgb 11 stable -Rocephin/flagyl d 3, will dc on PO 14 days total -outpatient colonoscopy in 6-8 weeks -no longer requies Morphine -Gi consult appreciated Leukocytosis -resolved, WBC 9 HTN -atenolol patient does not have DM A1c =5.8 HLD lipitor 10 hs FEN 1/2 NS @ 75 Daily lytes full liquid, advance tomorrow SCD's m/s, possible dc tomorrow Problem List - Problems (1) Diverticulitis Code(s): K57.92 - DVTRCLI OF INTEST, PART UNSP, W/O PERF OR ABSCESS W/O BLEED (2) Diverticulosis Code(s): K57.90 - DVRTCLOS OF INTEST, PART UNSP, W/O PERF OR ABSCESS W/O BLEED Qualifiers: Diverticulosis site: unspecified location Diverticulosis bleeding: diverticulosis with bleeding Qualified Code(s): K57.91 - Diverticulosis of intestine, part unspecified, without perforation or abscess with bleeding (3) Rectal bleeding Code(s): K62.5 - HEMORRHAGE OF ANUS AND RECTUM (4) Gastrointestinal hemorrhage Code(s): K92.2 - GASTROINTESTINAL HEMORRHAGE, UNSPECIFIED (5) HLD (hyperlipidemia) Code(s): E78.5 - HYPERLIPIDEMIA, UNSPECIFIED (6) HTN (hypertension) Code(s): I10 - ESSENTIAL (PRIMARY) HYPERTENSION Visit type - Emergency Visit Emergency Visit: Yes ED Registration Date: 06/08/17 Care time: The patient presented to the Emergency Department on the above date and was hospitalized for further evaluation of their emergent condition. - New Patient This patient is new to me today: Yes Date on this admission: 06/10/17 - Critical Care Critical Care patient: No - Discharge Referral Referred to [facility] Med P.C.: No
--- NOTE | 2017-06-10 15:06 | CON.GI ---
Consult Consult Specialty:: Gi Referred by:: Dr Ambrocio/Dr Walker Reason for Consultation:: acute diverticulitis - History of Present Illness History of Present Illness: 77 y/o female was admitted with 3 week history of constipation, abdominal bloating and abdominal pain. These symptoms continued up to the time of admission associated with rectal pain, and rectal bleeding. She underwent colonoscopy 03/09/2016 and was noted to have moderately severe diverticulitis. Today the abdominal bloating and cardona has improved. - Past Medical History ...: No - Alcohol/Substance Use Hx Alcohol Use: No - Smoking History Smoking history: Former smoker Have you smoked in the past 12 months: Yes Aproximately how many cigarettes per day: 2 If you are a former smoker, when did you quit?: 5 YR AGO Home Medications - Allergies Allergies/Adverse Reactions: Allergies Allergy/AdvReac Type Severity Reaction Status Date / Time No Known Allergies Allergy Verified 06/08/17 12:00 - Home Medications Home Medications: Ambulatory Orders Atenolol [Tenormin -] 50 mg PO DAILY 12/30/15 Atorvastatin Ca [Lipitor] 10 mg PO HS 12/30/15 Buspirone HCl [Buspar -] 10 mg PO DAILY 12/30/15 Aspirin [ASA -] 81 mg PO DAILY 01/27/16 Ibuprofen 800 mg PO TID PRN 01/27/16 Omeprazole 40 mg PO DAILY 01/27/16 Review of Systems - Review of Systems Constitutional: denies: Fever Eyes: denies: Blind Spots HENT: denies: Difficult Swallowing Neck: denies: Decreased ROM Cardiovascular: denies: Chest Pain Respiratory: denies: SOB Gastrointestinal: reports: Abdominal Pain, Bloating, Constipation, Rectal Bleeding. denies: Diarrhea, Indigestion, Vomiting Physical Exam-GI Vital Signs: Vital Signs Temperature 98.6 F 06/10/17 10:00 Pulse Rate 66 06/10/17 10:00 Respiratory Rate 18 06/10/17 10:00 Blood Pressure 130/75 06/10/17 10:00 O2 Sat by Pulse Oximetry (%) 98 06/10/17 09:00 Constitutional: Yes: Obese Eyes: No: Conjunctiva Clear HENT: No: Atraumatic Neck: No: Supple Cardiovascular: No: Regular Rate and Rhythm Respiratory: No: CTA Bilaterally ...Palpate: Yes: Soft, Tenderness (--diffuse). No: Firm/Rigid, Guarding, Pulsatile Mass, Splenomegaly ...Percussion: Yes: Tympanitic ...Rectal Exam: Yes: Other (intermal hemorrhoids) Labs: CBC, BMP 06/10/17 06:35 06/09/17 06:45 INR, PTT INR 1.12 (0.82-1.09) 06/09/17 06:45 Imaging - Results Cat Scan: Report Reviewed Problem List - Problems (1) Rectal bleeding Assessment/Plan: secondary to internal hemorrhoids R> hydocortisone suppository Code(s): K62.5 - HEMORRHAGE OF ANUS AND RECTUM (2) IBS (irritable colon syndrome) Assessment/Plan: low fibe lactose free flagyl 250mg tid Miralax 17 grams tid made aware to follow -up Code(s): K58.9 - IRRITABLE BOWEL SYNDROME WITHOUT DIARRHEA (3) Diverticulitis Assessment/Plan: --resolving Code(s): K57.92 - DVTRCLI OF INTEST, PART UNSP, W/O PERF OR ABSCESS W/O BLEED
[2017-06-10] MEDS: POLYETHYLENE GLYCOL 3350 119 GM BTL PO SCH (21:36)
[2017-06-10] MEDS: ATORVASTATIN CA 10 MG TABLET (FP) PO SCH (21:36)
[2017-06-10] MEDS ORDERED: HYDROCORTISONE ACETATE 25 MG/SUPP.RECT PR SCH (22:00)
--- NOTE | 2017-06-11 05:48 | PN ---
Physical Exam: SUBJECTIVE: Patient seen and examined - VSS, afebrile; Two BMs during day yesterday with evidence of hematochezia; Pt complaining of another bloody BM this AM "filling the bowl", with multiple small clots noted on toilet paper; Still with crampy abdominal pain, 2-3/10, with radiation to L back; Pt denies all other symptoms including LOVING, f/c/n/v, CP , sob, cough, LE edema, rash, lower ext edema OBJECTIVE: Vital Signs Intake & Output 06/08/17 06/09/17 06/10/17 06/11/17 23:59 23:59 23:59 23:59 Intake Total 75 1365 1360 300 Balance 75 1365 1360 300 Weight 72.575 kg Period Temp Pulse Resp BP Sys/Sylvester Pulse Ox Last 24 Hr 98.2 F-98.6 F 61-75 18-20 126-145/75-88 98-98 GENERAL: Elderly woman in NAD, A&Ox3 HEAD: NCAT EYES: Pupils equal, round and reactive to light, extraocular movements intact, sclera anicteric, conjunctiva clear. No lid lag. EARS, NOSE, THROAT: No evidence of epistaxis, nasal septal defects. Ears normal , nares patent, oropharynx clear without exudates. Moist mucous membranes. NECK: Normal range of motion, supple without lymphadenopathy, JVD, or masses. LUNGS: clear to auscultation bilaterally. No wheezes, and no crackles. No accessory muscle use. HEART: Regular rate and rhythm, normal S1 and S2 without murmur, rub or gallop. ABDOMEN: TTP in all four quadrants, primarily in LLQ. Soft, ND, normoactive bowel sounds, no masses. No hepatomegaly or splenomegaly. MUSCULOSKELETAL: Normal range of motion at all joints. No bony deformities or tenderness. No CVA tenderness. UPPER EXTREMITIES: 2+ pulses, warm, well-perfused. No cyanosis. No clubbing. No peripheral edema. LOWER EXTREMITIES: 2+ DP/PT pulses, warm, well-perfused. No calf tenderness. No peripheral edema. Restricted movement in knees secondary to arthritic pain. NEUROLOGICAL: Cranial nerves II-XII intact. Normal speech. Gait not evaluated. PSYCHIATRIC: Cooperative. Good eye contact. Appropriate mood and affect. Pleasant Laboratory Results - last 24 hr CBC, BMP 06/11/17 05:50 06/09/17 06:45 06/10/17 06:35 06/09/17 06:45 06/09/17 06/10/17 06/10/17 06:00 05:36 06:35 WBC 9.4 RBC 3.74 Hgb 11.4 Hct 33.6 MCV 89.8 MCH 30.5 MCHC 33.9 RDW 12.4 Plt Count 257 MPV 7.8 POC Glucometer 84 Hemoglobin A1c % 5.8 06/10/17 11:59 WBC RBC Hgb Hct MCV MCH MCHC RDW Plt Count MPV POC Glucometer 115 Hemoglobin A1c % Active Medications Generic Name Dose Route Start Last Admin Trade Name Freq PRN Reason Stop Dose Admin Atenolol 50 mg 06/09/17 10:00 06/10/17 09:48 Tenormin - PO 50 mg DAILY KITA Administration Atorvastatin Calcium 10 mg 06/08/17 22:00 06/10/17 21:36 Lipitor - PO 10 mg HS KITA Administration Buspirone HCl 10 mg 06/09/17 10:00 06/10/17 09:50 Buspar - PO 10 mg DAILY KITA Administration Hydrocortisone Acetate 25 mg 06/10/17 22:00 06/10/17 21:36 Anusol Hc Suppository - CO 25 mg HS KITA Administration Ceftriaxone Sodium 1 gm/ 50 mls @ 100 mls/hr 06/09/17 10:00 06/10/17 09:49 Dextrose IVPB 100 mls/hr DAILY KITA Administration Protocol Metronidazole 500 mg in 100 mls @ 100 mls/hr 06/09/17 02:00 06/11/17 02:18 Flagyl 500mg Premixed Ivpb - IVPB 100 mls/hr Q8H-IV KITA Administration Morphine Sulfate 2 mg 06/08/17 19:09 06/08/17 23:36 Morphine Sulfate IVPUSH 2 mg Q4H PRN Administration PAIN LEVEL 6-10 Ondansetron HCl 4 mg 06/08/17 18:58 Zofran Injection IVPUSH Q4H PRN NAUSEA AND/OR VOMITING Polyethylene Glycol 17 gm 06/10/17 22:00 06/10/17 21:36 Miralax (For Daily Use) - PO 17 grams BID KITA Administration Microbiology 06/08/17 21:45 Blood - Peripheral Venous Blood Culture - Preliminary NO GROWTH OBTAINED AFTER 48 HOURS, INCUBATION TO CONTINUE FOR 3 DAYS. 06/08/17 21:21 Blood - Peripheral Venous Blood Culture - Preliminary NO GROWTH OBTAINED AFTER 48 HOURS, INCUBATION TO CONTINUE FOR [address] ab/pelvis 06/08 - Evidence of sigmoid diverticulitis. No evidence of fluid collection or free air. CXR 06/08 - No acute disease ASSESSMENT/PLAN: (do not reference) 77 year old woman with pmh of HTN, HLD, partial nephrectomy for benign renal mass (2004), prior episode of hematochezia in 01/2016, who presents with one day of rectal bleeding beginning Hematochezia -secondary to diverticular bleed; acute diverticulitis seen on CT -current episode due to hemorrhoidal bleed per GI; will treat with suppository - Hgb 11 stable -Rocephin/flagyl d 3, will dc on PO 14 days total -outpatient colonoscopy in 6-8 weeks -no longer requies Morphine -Gi consult appreciated Leukocytosis -resolved, WBC 9 HTN -atenolol patient does not have DM A1c =5.8 HLD lipitor 10 hs FEN 1/2 NS @ 77 Daily lytes full liquid, advance tomorrow SCD's m/s, possible dc tomorrow
[2017-06-11 07:10] LABS: BASO % 0.9 % (0-2.0); EOS % 2.1 % (0-4.5); HEMATOCRIT 33.3 % (32.4-45.2); HEMOGLOBIN 11.3 GM/dL (10.7-15.3); LYMPH % 18.2 % (8-40); MCH 30.2 pg (25.7-33.7); MEAN PLT VOLUME 8.1 fl (7.5-11.1); MONO % 11.1 % (3.8-10.2); NEUT % 67.7 % (42.8-82.8); PLATELET COUNT 273 K/MM3 (134-434); RBC 3.74 M/mm3 (3.60-5.2); RDW 12.1 % (11.6-15.6); WHITE BLOOD COUNT 7.7 K/mm3 (4.0-10.0)
[2017-06-11] MEDS ORDERED: cefTRIAXone SODIUM 1 GM VIAL ONE (09:29)
[2017-06-11] MEDS ORDERED: DEXTROSE 5%-WATER - 50 ML IVPB ONE (09:29)
[2017-06-11] MEDS: busPIRone HCL 10 MG TABLET (FP) PO SCH (09:36)
[2017-06-11] MEDS: CEFTRIAXONE 1 GM in DEXTROSE 5%-WATER - 50 ML IVPB SCH (09:37)
[2017-06-11] MEDS: ATENOLOL 50 MG TABLET (FP) PO SCH (09:37)
[2017-06-11] MEDS: POLYETHYLENE GLYCOL 3350 119 GM BTL PO SCH (09:38)
--- NOTE | 2017-06-11 11:53 | PN ---
Teaching Attending Note Name of Resident: Silvestre Mercado ATTENDING PHYSICIAN STATEMENT I saw and evaluated the patient. I reviewed the resident's note and discussed the case with the resident. I agree with the resident's findings and plan as documented. SUBJECTIVE:states abdominal pain has improved. did have a large BM today mixed with BRBPR. tolerating diet. denies CP, SOB, fever, chills, N/V/C/D OBJECTIVE: Last Vital Signs Temp Pulse Resp BP Pulse Ox 98.1 F 66 20 144/85 98 06/11/17 06:00 06/11/17 06:00 06/11/17 06:00 06/11/17 06:00 06/11/17 00:45 General NAD Abdomen soft NT/ND Extremities LUE mid-forearm large flucutant area, not tender ASSESSMENT AND PLAN: 77yo F with PMH HTN, DM, R renal mass s/p partial nephrectomy and recent diverticular bleed in January 2017 presented to the Er wtih diffuse abdominal pain with hematochezia. 1. Hematochezia- likely diverticular bleed vs hemorrhoid bleeding. large BRBPR today. will give hydrocortisone supp. repeat CBC later today. d/w GI about bleeding. 2. Acute Diverticulitis-tolerating diet. on Ceftriaxone and Flagyl day 3. GI consulted. will need repeat colonoscopy in 6-8 weeks 3. UTI- likely cause of abdominal pain. nothing elicited on exam. will be treated with abx for diverticulitis 4. LUE infiltration of Ceftriaxone- IV site removed. cold compress. will monitor 5. JACQUES- due to dehydration. improved 6. HTN- cont atenolol for now 7. DM- does NOT have dx of DM. a1c 5.8. 8. R renal mass s/p nephrectomy 9. DVT ppx- SCD.
[2017-06-11 13:48] LABS: BASO % 0.9 % (0-2.0); EOS % 2.2 % (0-4.5); HEMATOCRIT 35.2 % (32.4-45.2); HEMOGLOBIN 11.9 GM/dL (10.7-15.3); LYMPH % 16.2 % (8-40); MCH 30.2 pg (25.7-33.7); MCHC 33.7 g/dl (32.0-36.0); MEAN CELL VOLUME 89.5 fl (80-96); MEAN PLT VOLUME 7.5 fl (7.5-11.1); MONO % 9.2 % (3.8-10.2); NEUT % 71.5 % (42.8-82.8); PLATELET COUNT 311 K/MM3 (134-434); RBC 3.93 M/mm3 (3.60-5.2); RDW 12.4 % (11.6-15.6); WHITE BLOOD COUNT 8.2 K/mm3 (4.0-10.0)
[2017-06-11] MEDS ORDERED: HYDROCORTISONE ACETATE 25 MG/SUPP.RECT RC ONE (14:00)
[2017-06-11] MEDS ORDERED: PT OWN MED DRAWER 7, Y5N ONE (15:07)
--- NOTE | 2017-06-11 16:42 | DS ---
Physical Exam: SUBJECTIVE: Patient seen and examined - VSS, afebrile; Two BMs during day yesterday with evidence of hematochezia; Pt complaining of another bloody BM this AM "filling the bowl", with multiple small clots noted on toilet paper; Still with crampy abdominal pain, 2-3/10, with radiation to L back; Pt denies all other symptoms including LOVING, f/c/n/v, CP , sob, cough, LE edema, rash, lower ext edema OBJECTIVE: Vital Signs Period Temp Pulse Resp BP Sys/Sylvester Pulse Ox Last 24 Hr 98.1 F-98.5 F 66-73 18-20 129-145/75-85 98-98 PHYSICAL EXAM GENERAL: Elderly woman in NAD, A&Ox3 HEAD: NCAT EYES: Pupils equal, round and reactive to light, extraocular movements intact, sclera anicteric, conjunctiva clear. No lid lag. EARS, NOSE, THROAT: No evidence of epistaxis, nasal septal defects. Ears normal , nares patent, oropharynx clear without exudates. Moist mucous membranes. NECK: Normal range of motion, supple without lymphadenopathy, JVD, or masses. LUNGS: clear to auscultation bilaterally. No wheezes, and no crackles. No accessory muscle use. HEART: Regular rate and rhythm, normal S1 and S2 without murmur, rub or gallop. ABDOMEN: TTP in all four quadrants, primarily in LLQ. Soft, ND, normoactive bowel sounds, no masses. No hepatomegaly or splenomegaly. MUSCULOSKELETAL: Normal range of motion at all joints. No bony deformities or tenderness. No CVA tenderness. UPPER EXTREMITIES: 2+ pulses, warm, well-perfused. No cyanosis. No clubbing. No peripheral edema. LOWER EXTREMITIES: 2+ DP/PT pulses, warm, well-perfused. No calf tenderness. No peripheral edema. Restricted movement in knees secondary to arthritic pain. NEUROLOGICAL: Cranial nerves II-XII intact. Normal speech. Gait not evaluated. PSYCHIATRIC: Cooperative. Good eye contact. Appropriate mood and affect. Pleasant LABS Laboratory Results - last 24 hr 06/11/17 06/11/17 05:50 12:40 WBC 7.7 8.2 RBC 3.74 3.93 Hgb 11.3 11.9 Hct 33.3 35.2 MCV 89.0 89.5 MCH 30.2 30.2 MCHC 34.0 33.7 RDW 12.1 12.4 Plt Count 273 311 MPV 8.1 7.5 Neutrophils % 67.7 71.5 Lymphocytes % 18.2 D 16.2 Monocytes % 11.1 H 9.2 Eosinophils % 2.1 2.2 Basophils % 0.9 0.9 Microbiology 06/08/17 21:45 Blood - Peripheral Venous Blood Culture - Preliminary NO GROWTH OBTAINED AFTER 48 HOURS, INCUBATION TO CONTINUE FOR 3 DAYS. 06/08/17 21:21 Blood - Peripheral Venous Blood Culture - Preliminary NO GROWTH OBTAINED AFTER 48 HOURS, INCUBATION TO CONTINUE FOR [address] ab/pelvis 06/08 - Evidence of sigmoid diverticulitis. No evidence of fluid collection or free air. CXR 06/08 - No acute disease Consults: GI - Seen by Dr. Velázquez HOSPITAL COURSE: prehospital course: 77 year old woman with pmh of HTN, HLD, partial nephrectomy for benign renal mass (2004), prior episode of hematochezia in 01/2016, who presents with one day of rectal bleeding beginning this AM. Pt was in her normal state of healthy last night, asymptomatic with no GI symptoms. This AM, pt awoke with crampy, bandlike lower abdominal, worsened by ambulation, non-radiating with no alleviating factors. Pt defecated in AM and noted roughly 1 cup of BRB in toilet and poorly formed stool. Pt endorses minimal pain with defecation, no sensation of straining or incomplete defecation, no mucoid BM, no diarrhea or change in stool caliber. Pt endorses 3-4 episodes of similar hematochezia in AM and then came to ED. Pt denies any recent GI symptoms, sick contacts, changes in diet, chronic GI conditions. Denies f/c/n/v, LOVING, CP, sob, cough, back pain, dysuria, constipation, recent diarrhea, rashes, epistaxis, hemoptysis or hematochezia. Pt takes ASA. Follows with Dr. Velázquez, with most recent colonoscopy in early 2017, with normal results per pt. Pt with prior admission in 01/2016 for diverticular GI bleed with spontaneous resolution. ER course was notable for: (1)CT Ab/Pelvis notable for acute diverticulitis (2)WBC 12.1. Hgb 12, Cr 1.2 (3)FOBT + Hospital course (by problem): #Hematochezia - Hgb 12 on presentation; pt with multiple episodes of hematochezia during admission; CT ab/pelvic with results as noted above; seen by GI, determined rectal bleeding likely secondary to internal hemorrhoids diagnosed on previous colonoscopy; started on hydrocortisone suppositories with mild improvement in bleeding symptoms; Pt received 3 days fo IV rocephin/flagyl for CT confirmed sigmoid diverticulitis as well, however determined to not be likely be source of bleed per GI; d/c'ed on rectal hydrocortsone suppositories, 4 more days of PO flagyl and miralax with outpt f/u with Dr. Velázquez in one week. Hgb stable in 11-12 range during admission, VSS stable during admission as well; plan for repeat colonoscopy in 6-8 weeks #JACQUES - Cr 1.2; improved to 1.1 with IVFs #HTN- Continued on home BB; well controlled during admission #DM - Hgb A1C 5.8; BG well controlled during admission Date of Admission:06/08/17 Date of Discharge: 06/11/17 Pt is medically cleared for discharge with outpt f/u with Dr. Velázquez tomorrow. Minutes to complete discharge: 35 Discharge Summary Reason For Visit: DIVERTICULOSIS OF INTESTINE; DVT Current Active Problems Diverticulitis (Acute) Diverticulosis (Acute) IBS (irritable colon syndrome) (Acute) Rectal bleeding (Acute) Condition: Guarded - Instructions Diet, Activity, Other Instructions: During your stay at [facility], you were evaluated and treated for a rectal bleed. You received imaging suggestive of inflammation of your colon, known as diverticulitis. However, this bleeding is likely secondary to your internal hemorrhoids. You were seen by Dr. Velázquez, our cotton program technician, who treated your hemorrhoidal bleeding with rectal suppositories. You are being discharged home with outpatient follow-up with Dr. Velázquez tomorrow Medications: The following medications were added to your home regimen. Please take them as specified below: Flagyl 250mg, take one pill by mouth three times a day, for the next seven days (06/12-06/18). Then stop taking this medication. Miralax 17gm, take one dose by mouth three times a day for constipation Anusol suppository 25mg, take one pill by rectum once a day Keflex 500mg, take one pill by mouth four times a day, for the next two days (-06/13) Please continue to take all other home medications as previously directed. Follow-ups: Please follow-up with your primary care physician in one week for further management of your medications. Please call their office to schedule an appointment. Please call within one week to schedule an appointment. Please follow-up with our cotton program technician, Dr. Velázquez, tomorrow at his office so that he may schedule an office visit for you. His contact number and address have been provided in this packet. Diet/exercise: Please abide by a low fiber, lactose free diet as specified in your discharge packet. Please return to the hospital if you experience any of the following symptoms: - Persistent, copious rectal bleeding that is unremitting - Worsening dizziness/lightheadness - Persistent diarrhea >4 days - Any new or concerning symptoms Referrals: Paul Velázquez MD [Staff Physician] - 06/12/17 (Please visit Dr. Velázquez tomorrow, 06/12, at his office) Rosana Walker [Primary Care Provider] - 1 Week Disposition: HOME - Home Medications Comprehensive Discharge Medication List: Ambulatory Orders Atenolol [Tenormin -] 50 mg PO DAILY 12/30/15 Atorvastatin Ca [Lipitor] 10 mg PO HS 12/30/15 Buspirone HCl [Buspar -] 10 mg PO DAILY 12/30/15 Aspirin [ASA -] 81 mg PO DAILY 01/27/16 Ibuprofen 800 mg PO TID PRN 01/27/16 Omeprazole 40 mg PO DAILY 01/27/16 Cephalexin Monohydrate [Keflex -] 500 mg PO Q6HPO #8 capsule 06/11/17 Hydrocortisone Acetate [Anusol Hc Suppository -] 25 mg [place] HS #14 supp.rect 06/11 Polyethylene Glycol 3350 [Miralax 119 gm Btl -] 17 gm PO TID bottle 06/11/17 metroNIDAZOLE [Flagyl -] 250 mg PO TID #21 tablet 06/11/17 This patient is new to me today: No Emergency Visit: Yes ED Registration Date: 06/08/17 Care time: The patient presented to the Emergency Department on the above date and was hospitalized for further evaluation of their emergent condition. Critical Care patient: No - Discharge Referral Referred to [facility] Med P.C.: No
[2017-06-11] MEDS ORDERED: CEPHALEXIN MONOHYDRATE 500 MG CAPSULE (UD) PO SCH (18:00)
[2017-06-11 18:16] VITALS: BP 143/77; PULSE 65; TEMP 97.8
== END 2017-06-11 19:26 | disposition home or self-care (01) | DRG 378 ==
LOC: JER 11:57 → JERBED 17:49 → OBSVTOIN 17:49 → J5S 22:18
PROVIDERS: ADMIT Internal Medicine; ATTEND Internal Medicine
DX: K57.33 Diverticulitis of large intestine without perforation or abscess with bleeding (principal); N17.9 Acute kidney failure, unspecified; I10 Essential (primary) hypertension; E11.9 Type 2 diabetes mellitus without complications; D72.829 Elevated white blood cell count, unspecified; K58.9 Irritable bowel syndrome, unspecified; E78.5 Hyperlipidemia, unspecified
CPT/HCPCS: 36415; 71045-TC-FY; 74176-TC; 80053; 81003; 81015; 82272; 82962; 83036; 83605; 83690; 83735; 84100; 85025; 85027; 85610; 86850; 86900; 86901; 87040; 93005; 93010; 99285-25; J0131

== ENCOUNTER 2018-11-11 04:12 | Emergency (ER) | payer OTHER, BC ==
[2018-11-11 04:22] VITALS: TEMP 97.5; BMI 21.2
[2018-11-11 05:24] LABS: BASO % 0.5 % (0-2.0); EOS % 1.5 % (0-4.5); HEMATOCRIT 32.2 % (32.4-45.2); HEMOGLOBIN 10.8 GM/dL (10.7-15.3); MCH 29.9 pg (25.7-33.7); MCHC 33.7 g/dl (32.0-36.0); MEAN CELL VOLUME 88.8 fl (80-96); MEAN PLT VOLUME 7.3 fl (7.5-11.1); MONO % 9.9 % (3.8-10.2); NEUT % 68.1 % (42.8-82.8); PLATELET COUNT 226 K/MM3 (134-434); RBC 3.62 M/mm3 (3.60-5.2); RDW 12.3 % (11.6-15.6); WHITE BLOOD COUNT 6.1 K/mm3 (4.0-10.0)
[2018-11-11 05:42] LABS: ALBUMIN 3.5 g/dl (3.4-5.0); BILIRUBIN,TOTAL 0.5 mg/dL (0.2-1); BLOOD UREA NITROGEN 15.5 mg/dL (7-18); CALCIUM 9.5 mg/dL (8.5-10.1); CREATININE 1.2 mg/dL (0.55-1.3); POTASSIUM 3.4 mmol/L (3.5-5.1); TOT PROT 6.9 g/dl (6.4-8.2)
[2018-11-11] MEDS ORDERED: POTASSIUM CHLORIDE TABS 20 MEQ TABLET.ER (FP) PO ONE ×3 (06:08→08:23)
--- NOTE | 2018-11-11 06:12 | PDOC ---
History of Present Illness - General Chief Complaint: Tremors Stated Complaint: MUSCLE SPASM Time Seen by Provider: 11/11/18 05:58 - History of Present Illness Initial Comments: 11/11/18 06:34 78 y/o F hx of HTN, DM,HLD,anxiety and left partial nephrectomy,presents to the ED with 1 day of swelling and cramping on both legs. She does have some leg weakness at her baseline and wallks with the aid of a cane or walker. She started experiencing leg swelling yesterday with brief episodes of cramping that would start in her feet all the way up to her thighs. She has had upwards of 5 episodes thus far. She experiences increased difficulty with walking when legs cramp.She denies any pain,fever, trauma, hx of similar episodes, hx of blood clots,fever, chills or other muscular aches or pains.She denies numbness or paresthesias. 11/11/18 06:45 Past History - Past Medical History Allergies/Adverse Reactions: Allergies Allergy/AdvReac Type Severity Reaction Status Date / Time No Known Allergies Allergy Verified 11/11/18 04:22 Home Medications: Ambulatory Orders Atenolol [Tenormin -] 50 mg PO DAILY 12/30/15 Atorvastatin Ca [Lipitor] 10 mg PO HS 12/30/15 Buspirone HCl [Buspar -] 10 mg PO DAILY 12/30/15 Aspirin [ASA -] 81 mg PO DAILY 01/27/16 Ibuprofen 800 mg PO TID PRN 01/27/16 Omeprazole 40 mg PO DAILY 01/27/16 Cephalexin Monohydrate [Keflex -] 500 mg PO Q6HPO #8 capsule 06/11/17 Hydrocortisone Acetate [Anusol Hc Suppository -] 25 mg TN HS #14 supp.rect 06/11 Polyethylene Glycol 3350 [Miralax 119 gm Btl -] 17 gm PO TID bottle 06/11/17 metroNIDAZOLE [Flagyl -] 250 mg PO TID #21 tablet 06/11/17 Anemia: No Asthma: No Cancer: No Cardiac Disorders: No CVA: No COPD: No CHF: No DVT: No Dementia: No Diabetes: Yes (boderline DM) GI Disorders: Yes (colonoscopy) Disorders: No HTN: Yes Hypercholesterolemia: Yes Liver Disease: No Seizures: No Thyroid Disease: No - Surgical History Abdominal Surgery: No Appendectomy: No Cardiac Surgery: No Cholecystectomy: No Lung Surgery: No Neurologic Surgery: No Orthopedic Surgery: No - Suicide/Smoking/Psychosocial Hx Smoking History: Never smoked Have you smoked in the past 12 months: Yes Number of Cigarettes Smoked Daily: 2 If you are a former smoker, when did you quit?: 5 YR AGO Hx Alcohol Use: No Drug/Substance Use Hx: No Substance Use Type: None Hx Substance Use Treatment: No Review of Systems - Review of Systems Constitutional: No: Chills, Fever HEENTM: No: Eye Pain, Blurred Vision Respiratory: No: Cough, Shortness of Breath Cardiac (ROS): No: Chest Pain, Lightheadedness ABD/GI: No: Abdominal Distended, Nausea : No: Burning, Dysuria Integumentary: No: Bruising Neurological: No: Headache Psychiatric: Yes: Anxiety *Physical Exam - Vital Signs Last Vital Signs Temp Pulse Resp BP Pulse Ox 97.5 F L 65 18 152/80 100 11/11/18 04:18 11/11/18 04:18 11/11/18 04:18 11/11/18 04:18 11/11/18 04:48 - Physical Exam Comments: 11/11/18 06:42 GENERAL: Awake, alert, and fully oriented, in no acute distress HEAD: No signs of trauma, normocephalic, atraumatic EYES: PERRLA, EOMI, sclera anicteric, conjunctiva clear ENT: Auricles normal inspection, hearing grossly normal, nares patent, oropharynx clear without exudates. Moist mucosa NECK: Normal ROM, supple, no lymphadenopathy, JVD, or masses LUNGS: No distress, rales in lung singer bilaterally. HEART: Regular rate and rhythm, normal S1 and S2, no murmurs, rubs or gallops, peripheral pulses normal and equal bilaterally. ABDOMEN: Soft, nontender, normoactive bowel sounds. No guarding, no rebound. No masses EXTREMITIES : 1+ pitting pedal edema bilaterally. 5/5 strength lower extremities. able to stand and walk with cane. describes this as her baseline. NEUROLOGICAL: Cranial nerves II through XII grossly intact. Normal speech, has a little tremor on left leg when raised, reports this as her baseline. no focal sensorimotor deficits SKIN: Warm, Dry, normal turgor, no rashes or lesions noted ED Treatment Course - LABORATORY CBC & Chemistry Diagram: 11/11/18 05:00 11/11/18 05:00 - ADDITIONAL ORDERS Additional order review: Laboratory Results 11/11/18 05:00 Sodium 138 Potassium 3.4 L Chloride 103 Carbon Dioxide 29 Anion Gap 7 L BUN 15.5 Creatinine 1.2 Est GFR (CKD-EPI)AfAm 50.84 Est GFR (CKD-EPI)NonAf 43.86 Random Glucose 93 Calcium 9.5 Total Bilirubin 0.5 AST 26 ALT 27 Alkaline Phosphatase 66 Total Protein 6.9 Albumin 3.5 11/11/18 05:00 RBC 3.62 MCV 88.8 MCHC 33.7 RDW 12.3 MPV 7.3 L Neutrophils % 68.1 Lymphocytes % 20.0 Monocytes % 9.9 Eosinophils % 1.5 Basophils % 0.5 Medical Decision Making - Medical Decision Making 11/11/18 06:45 78 y/o F hx of HTN, DM,HLD,anxiety and left partial nephrectomy,presents to the ED with 1 day of swelling and cramping on both legs. cbc, cmp, bnp, ekg EKG: normal sinus rhythm normal EKG, no peaked T waves. Labs: mild hypokalemia. Meds: pt received 40meq potassium BNP- pending 11/11/18 06:47 11/11/18 07:01 BNP 263.3 MgSO4 2gm IV ordered then dispo home with follow up to PCP. 11/11/18 07:23 *DC/Admit/Observation/Transfer Diagnosis at time of Disposition: Hypokalemia - Discharge Dispostion Disposition: HOME Condition at time of disposition: Stable Decision to Admit order: No - Referrals Referrals: Rosana Walker [Primary Care Provider] - Emile Solares MD [Staff Physician] - - Patient Instructions Printed Discharge Instructions: DI for Hypokalemia Additional Instructions: You were seen in the Ed for cramping and swelling in your legs You were given potassium in the ER as well as Magnesium Follow up with you primary care provider and neurologist in the following week. Your care is not complete until you do so. Return to the ER if you experience worsening symptoms. - Post Discharge Activity
--- NOTE | 2018-11-11 06:34 | PDOC ---
Attending Attestation - Resident Resident Name: Aron Rosario - ED Attending Attestation I have performed the following: I have examined & evaluated the patient, The case was reviewed & discussed with the resident, I agree w/resident's findings & plan - Medical Decision Making 11/11/18 06:34 Pt will be signed out to the day team.
[2018-11-11 06:51] LABS: N-TERMINAL BNP 263.3 pg/ml (5-450)
[2018-11-11] MEDS ORDERED: MAGNESIUM SULF 50% (8.12 MEQ/2 ML-1 GM VIAL) IVPB ONE (07:00)
[2018-11-11] MEDS ORDERED: MAGNESIUM SULF 50% (8.12 MEQ/2 ML-1 GM VIAL) ONE (08:24)
[2018-11-11 09:17] VITALS: BP 135/89; PULSE 75
--- NOTE | 2018-11-13 11:05 | EKG ---
Test Reason : Blood Pressure : / mmHG Vent. Rate : 068 BPM Atrial Rate : 068 BPM P-R Int : 166 ms QRS Dur : 080 ms QT Int : 386 ms P-R-T Axes : 066 026 043 degrees QTc Int : 410 ms NORMAL SINUS RHYTHM NORMAL ECG WHEN COMPARED WITH ECG OF 01-FEB-2018 14:56, NO SIGNIFICANT CHANGE WAS FOUND Confirmed by AUSTEN SHERMAN MD ([id number]) on 11/13/2018 11:05:37 AM Referred By: Confirmed By:AUSTEN SHERMAN MD
== END 2018-11-11 09:17 | disposition home or self-care (01) ==
LOC: JER 04:12
PROC: 3E033GC Introduction of Other Therapeutic Substance into Peripheral Vein, Percutaneous Approach (ICD-10-PCS; principal; 2018-11-11)
DX: E87.6 Hypokalemia (principal); I10 Essential (primary) hypertension; E78.5 Hyperlipidemia, unspecified; E78.00 Pure hypercholesterolemia, unspecified; E11.9 Type 2 diabetes mellitus without complications; F41.9 Anxiety disorder, unspecified; Z99.89 Dependence on other enabling machines and devices
CPT/HCPCS: 36415; 80053; 83880; 85025; 93005; 93010; 96374; 99283-25

== ENCOUNTER 2018-11-27 15:44 | Inpatient (IN) | payer OTHER, BC ==
[2018-11-27 16:10] VITALS: BMI 29.5
--- NOTE | 2018-11-27 16:36 | PDOC ---
Attending Attestation - Resident Resident Name: Dylan Coello - ED Attending Attestation I have performed the following: I have examined & evaluated the patient, The case was reviewed & discussed with the resident, I agree w/resident's findings & plan, Exceptions are as noted
--- NOTE | 2018-11-27 17:41 | PDOC ---
History of Present Illness - General Chief Complaint: Altered Mental Status Stated Complaint: Altered Mental Status Time Seen by Provider: 11/27/18 16:34 - History of Present Illness Initial Comments: This is a 78 year old female with PMH significant for HTN, HLD, DM, and anxiety. She was brought to the ER by ambulance after she had started having visual hallucinations earlier today. Around 2PM, she called her friend and told her that bugs were entering her home and transforming into humans. Upon hearing this, her friend went over to the patient's house and called EMS. She believes that these images are real, and does not think that these are hallucinations. She has never had any similar episodes in the past. The patient also endorses a mild headache and neck pain, she does not know when it began. She has no associated auditory hallucinations, fevers, chills, photophobia, nausea, vomiting, SOB, chest pain, diarrhea, hematuria, polyuria, or dysuria. She has been taking prescription Flexiril BID for the past 2 weeks for leg cramps, and admits that she has been taking more than prescribed. She denies any other recent medication changes or illnesses. She denies any family history of Alzheimer's, dementia, or psychiatric illnesses. Past History - Past Medical History Allergies/Adverse Reactions: Allergies No Known Allergies Allergy (Verified 11/27/18 16:10) Home Medications: Ambulatory Orders Atenolol [Tenormin -] 50 mg PO DAILY 12/30/15 Atorvastatin Ca [Lipitor] 10 mg PO HS 12/30/15 Buspirone HCl [Buspar -] 10 mg PO DAILY 12/30/15 Aspirin [ASA -] 81 mg PO DAILY 01/27/16 Ibuprofen 800 mg PO TID PRN 01/27/16 Omeprazole 40 mg PO DAILY 01/27/16 Cephalexin Monohydrate [Keflex -] 500 mg PO Q6HPO #8 capsule 06/11/17 Hydrocortisone Acetate [Anusol Hc Suppository -] 25 mg [place] HS #14 supp.rect 06/11 Polyethylene Glycol 3350 [Miralax 119 gm Btl -] 17 gm PO TID bottle 06/11/17 metroNIDAZOLE [Flagyl -] 250 mg PO TID #21 tablet 06/11/17 Surgical History: Yes: Other - Immunization History Tetanus Status: Unknown - Social History Smoking Status: Never smoked Number of Cigarettes Per Day: 2 *Review of Systems - Review of Systems Constitutional: Yes: See HPI HEENTM: Yes: See HPI Respiratory: Yes: See HPI Cardiac (ROS): Yes: See HPI ABD/GI: Yes: See HPI : Yes: See HPI Musculoskeletal: Yes: See HPI Integumentary: Yes: See HPI Neurological: Yes: See HPI *Physical Exam - Vital Signs Last Vital Signs Temp Pulse Resp BP Pulse Ox 97.3 F L 97 H 18 162/90 97 11/27/18 16:07 11/27/18 17:00 11/27/18 17:00 11/27/18 17:00 11/27/18 17:00 - Physical Exam Comments: 11/27/18 19:07 General: AOx3, lying comfortable in bed, pleasant and cooperative Eyes: JUDY, EOM intact, exopthalmos noted Oropharynx: Normal mucosa, no lesions Lungs: Decreased breath sounds B/L CVS: RRR, no murmurs GI: Soft, non tender, non distended, normoactive bowel sounds Extremities: No edema Neuro: Upper motor 5/5, Lower motor 3/5 B/L, sensations intact Plan - Progress Note Progress Note: 11/27/18 19:21 78 year old female with PMH significant for HTN, DM, HLD, no history of dementia or psychiatric illness presents with sudden onset visual hallucinations since 2PM today. - Will check for neurologic vs septic etiology, cerebral mass vs meningitis vs UTI - CBC/CMP - UA - CXR - TSH - CT Head, CT C Spine - Lower extremity Doppler - 500cc N/S 11/27/18 20:16 - CK 1338 - CT Head negative - Will admit for AMS, Rhabdo - Patient signed out to Admitting [facility] team, admitted under - Laboratory CBC & Chemistry Diagram: 11/27/18 17:41 11/27/18 17:41
[2018-11-27 17:59] LABS: BASO % 0.5 % (0-2.0); EOS % 1.6 % (0-4.5); HEMATOCRIT 35.4 % (32.4-45.2); HEMOGLOBIN 11.7 GM/dL (10.7-15.3); LYMPH % 13.7 % (8-40); MCH 29.6 pg (25.7-33.7); MCHC 33.1 g/dl (32.0-36.0); MEAN CELL VOLUME 89.3 fl (80-96); MEAN PLT VOLUME 7.9 fl (7.5-11.1); MONO % 7.9 % (3.8-10.2); NEUT % 76.3 % (42.8-82.8); PLATELET COUNT 249 K/MM3 (134-434); RBC 3.96 M/mm3 (3.60-5.2); RDW 12.4 % (11.6-15.6); WHITE BLOOD COUNT 9.2 K/mm3 (4.0-10.0)
[2018-11-27 18:10] LABS: INR 1.05 (0.83-1.09); PROTHROMBIN TIME (PATIENT) 12.4 SEC (9.7-13.0)
[2018-11-27] MEDS ORDERED: DEXTROSE 50%-WATER - 25 GM/50 ML VIAL IVPUSH ONE (18:12)
[2018-11-27 18:13] LABS: ACTIVATED PTT 30.7 SECONDS (25.2-36.5)
[2018-11-27] MEDS ORDERED: DEXTROSE 50%-WATER - 25 GM/50 ML VIAL ONE (18:15)
[2018-11-27 18:33] LABS: ALBUMIN 3.8 g/dl (3.4-5.0); BILIRUBIN,TOTAL 0.7 mg/dL (0.2-1); BLOOD UREA NITROGEN 22.2 mg/dL (7-18); CALCIUM 9.3 mg/dL (8.5-10.1); CREATININE 1.1 mg/dL (0.55-1.3); MAGNESIUM 1.6 mg/dL (1.8-2.4); POTASSIUM 3.5 mmol/L (3.5-5.1); TOT PROT 7.3 g/dl (6.4-8.2)
[2018-11-27] MEDS ORDERED: SODIUM CHLORIDE 500 ML IV STA (18:45)
[2018-11-27] MEDS ORDERED: MAGNESIUM SULF 50% (8.12 MEQ/2 ML-1 GM VIAL) IVPB ONE (18:46)
--- NOTE | 2018-11-27 19:13 | PDOC ---
Documentation entered by Lorena Orozco SCRIBE, acting as scribe for Gail Oliveira DO. Gail Oliveira DO: This documentation has been prepared by the Ernesto whitman Adrianna, SCRIBE, under my direction and personally reviewed by me in its entirety. I confirm that the documentation accurately reflects all work, treatment, procedures, and medical decision making performed by me. Attending Attestation - Resident Resident Name: DieudonnelynneDylan - ED Attending Attestation I have performed the following: I have examined & evaluated the patient, The case was reviewed & discussed with the resident, I agree w/resident's findings & plan, Exceptions are as noted - HPI HPI: The patient is a 78 year old female, with a significant PMH of migraines, HTN, DM, HLD, anxiety and left partial nephrectomy,who presents to the ED for evaluation of AMS for 3 hours. Patient was said to be confused and hallucinating earlier this afternoon, when she called her friend and said "she saw worms coming through the door, which would transform into dogs and then into men under her bed." Her friend went to her place, and the patient was complaining of a mild headache and neck pain (similar to migraines symptoms), and abdominal cramping (which has since resolved). Patient's friend does note that she fell into her dresser 2 days ago, but denies head contusion or LOC. Friend states that the patient typically walks with a cane at baseline, but today her gait was off-balance and she felt weak so she used her walker. Patient does not have a psychiatric history or delusions. Denies any changes in medications, other than taking flexeril for the past 2 weeks for muscle cramps. Denies fever, chills, chest pain, SOB, nausea, vomit, diarrhea, constipation, dysuria, hematuria. Allergies: NKA, NKDA Surgical History: Left partial nephrectomy Social History: Former smoker (quit 5 years ago). Denies EtOH or illicit drug use. PCP: Dr. Walker Neurologist: Dr. Solares - Physicial Exam PE: Constitutional: Awake, alert. No acute distress. Head: Normocephalic. Atraumatic Eyes: PERRL. EOMI. Conjunctivae are not pale. ENT: Mucous membranes are moist and intact. Posterior pharynx without exudates or erythema. Uvula midline. Neck: Supple. Full ROM. No lymphadenopathy. Cardiovascular: Regular rate. Regular rhythm. S1, S2 regular. Distal pulses are 2+ and symmetric. Pulmonary/Chest: No evidence of respiratory distress. Clear to auscultation bilaterally No wheezing, rales or rhonchi. Abdominal: Soft and non-distended. There is no tenderness. No rebound, guarding or rigidity. No organomegaly. No palpable masses. Good bowel sounds. Back: No CVA tenderness. No C/T/L spine tenderness. Musculoskeletal: +1+ pitting edema of the bilateral lower extremities. No cyanosis. No clubbing.Muscle strength 5/5 of the bilateral upper extremities. + 4/5 strength of the bilateral lower extremities. +Mild right calf tenderness. Radial/pedal pulses are intact and 2+ bilaterally. Pelvis stable. Skin: Skin is warm and dry. No petechiae. No purpura. Neurological: +Visual hallucinations at bedside. +Generalized weakness of the bilateral lower extremities. Cranial nerves II-XII are grossly intact. Normal speech. No sensory deficits, sensation intact. Vision intact. Negative Babinski. Psychiatric: Good eye contact. Normal interaction, affect and behavior. - Critical Care Time Total Critical Care Time: 45 Critical Care Statement: The care of this patient involved high complexity decision making to prevent further life threatening deterioration of the patient 's condition and/or to evaluate & treat vital organ system(s) failure or risk of failure. - Medical Decision Making 11/27/18 18:25 I, Dr. Gail Oliveira, DO, attest that this document has been prepared under my direction and personally reviewed by me in its entirety. I further attest, that it accurately reflects all work, treatment, procedures and medical decision -making performed by me. a/p: 78yo female brought in from home for eval of visual hallucinations -started today -pt states she fell 2 days ago -today off balance, generally weak -visual hallucinations - sees bugs becoming dogs becoming cats becoming med -no auditory hallucinations -pt is generally weak in her legs -pt with new tremors -will send for head ct, ct c spine given pain after her fall -will send labs, ua, ucx -will most likely need admission -neuro is Dr. Sloares -Dr. 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
[2018-11-27] MEDS ORDERED: METOCLOPRAMIDE HCL INJECTION 10 MG/2 ML VIAL IVPUSH ONE (19:34)
[2018-11-27] MEDS ORDERED: ACETAMINOPHEN 1000 MG/100 ML VIAL (NON FORMULARY) IVPB ONE (19:36)
[2018-11-27] MEDS ORDERED: METOCLOPRAMIDE HCL INJECTION 10 MG/2 ML VIAL ONE (20:03)
[2018-11-27] MEDS ORDERED: MAGNESIUM SULF 50% (8.12 MEQ/2 ML-1 GM VIAL) ONE (20:03)
[2018-11-27] MEDS ORDERED: ACETAMINOPHEN INJECTION 100 ML IVPB ONE (20:03)
--- NOTE | 2018-11-27 20:42 | PN ---
Teaching Attending Note Name of Resident: Nataly Rhodes ATTENDING PHYSICIAN STATEMENT I saw and evaluated the patient. I reviewed the resident's note and discussed the case with the resident. I agree with the resident's findings and plan as documented. SUBJECTIVE: Patient is a 78 year old woman with a PMH of Migraines, HTN, Borderline DM, HLD , Anxiety, Diverticular GI bleeding, Hypothyroidsm and Partial left nephrectomy who presents to the ER for evaluation of AMS for 3 hours. Patient was said to be confused and hallucinating earlier this afternoon, when she called her friend and said "she saw worms coming through the door, which would transform into dogs and then into men under her bed." Her friend went to her place, and the patient was complaining of a mild headache and neck pain (similar to migraines symptoms), and abdominal cramping (which has since resolved). Patient' s friend does note that she fell into her dresser 2 days ago, but denies head contusion or LOC. Friend states that the patient typically walks with a cane at baseline, but today her gait was off-balance and she felt weak so she used her walker. Patient does not have a psychiatric history or delusions but her medical records show an entry for outpatient evaluation by Dr. Emile Solares on 10/08/17 for Dementia. She was evaluated in [facility] ER on 11/11/18 for leg cramps and got oral KCL for K+ of 3.4 me/L and 2 gm IV MgSO4 and discharged. She has been taking prescription Flexeril BID for the past 2 weeks for leg muscle cramps, and admits that she has been taking more than prescribed. She denies any other recent medication changes or illnesses. The patient also has a mild headache and neck pain, she does not know when it began. She has no associated auditory hallucinations, fevers, chills, photophobia, nausea, vomiting, SOB, chest pain, diarrhea, hematuria, polyuria, or dysuria. She denies any family history of Alzheimer's dementia, or psychiatric illnesses. Patient quit smoking 5 years ago and denies alcohol abuse or illicit drug use. No recent travels or obvious sick contacts. Patient has a FH of HTN. 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 OBJECTIVE: Stuporous and responds to firm sternal rub Vital Signs Period Temp Pulse Resp BP Sys/Sylvester Pulse Ox Last 24 Hr 97.3 F 97-98 18-18 162-176/90-100 93-97 HEENT: No Jaundice, eye redness or discharge, PERRLA, EOMI. Normocephalic, atraumatic. External ears are normal and hearing is grossly intact. No nasal discharge. Neck: Supple, nontender. No palpable adenopathy or thyromegaly. No JVD Chest: Good effort. Clear to auscultation and percussion. Heart: Regular. No S3, rub or murmur Abdomen: Not distended, soft, nontender and no HSM. No rebound or guarding. Normal bowel sounds. Ext: Peripheral pulses intact. No leg edema. Skin: Warm and dry. No petechiae, rash or ecchymosis. Neuro: Stuporous and responds to firm sternal rub. CN 2-12 grossly intact. Sensation grossly intact in all four extremities and DTR are symmetric. Gait not tested for safety reasons. Psych: Unable to assess. Home Medications Medication Instructions Recorded Atenolol [Tenormin -] 50 mg PO DAILY 12/30/15 Atorvastatin Ca [Lipitor] 10 mg PO HS 12/30/15 Buspirone HCl [Buspar -] 10 mg PO DAILY 12/30/15 Aspirin [ASA -] 81 mg PO DAILY 01/27/16 Ibuprofen 800 mg PO TID PRN 01/27/16 Omeprazole 40 mg PO DAILY 01/27/16 Cephalexin Monohydrate [Keflex -] 500 mg PO Q6HPO #8 capsule 06/11/17 Hydrocortisone Acetate [Anusol Hc 25 mg CA HS #14 supp.rect 06/11/17 Suppository -] Polyethylene Glycol 3350 [Miralax 17 gm PO TID bottle 06/11/17 119 gm Btl -] metroNIDAZOLE [Flagyl -] 250 mg PO TID #21 tablet 06/11/17 Abnormal Lab Results 11/27/18 11/27/18 17:41 17:41 Anion Gap 6 L BUN 22.2 H Magnesium 1.6 L AST 62 H Creatine Kinase 1338 H CK-MB (CK-2) 12.8 H ASSESSMENT AND PLAN: 1. AMS and Rhabdomyolysis - Etiology of AMS/metabolic encephalopahy and hallucinations unclear. Patient was reportedly alert upon arrival and became stuporous while in the ER. Initial finger stick glucose in the ER was 58 and patient got D50W. No obvious evidence of infection. No acute abnormality noted on noncontrast head CT. CXR shows elevation of right hemidiaphragm and no gross infiltrates. C-spine CT showed "Multilevel degenerative disc and facet joint changes with moderate to marked C5-6 central canal stenosis and multilevel bilateral foraminal stenosis". EKG shows NSR with no significant ST-T wave changes. No DVT on leg doppler. Rhabdomyolysis may be due to excess flexeril ingestion. Urine toxicology and ABG pending. Will give IV MgSO4 and PO Mg oxide once alert. Continue hydration with IV D5LR, monitor calcium, glucose, phosphate, K+, Mg+, Vitamin B12/folate level and trend CPK. Noe do neurochecks, implement seizure, fall and aspiration precautions. Consult neurology and ICU. Treat with thiamine and folic acid. Will consult the powder worker to assess the patient's living situation. Will continue comprehensive care for all of patients comorbid conditions. 2. Borderline DM We will implement sliding scale insulin regimen. Provide comprehensive diabetes care with patient teaching and counseling about the importance of adherence to prescribed diabetes regimen, euglycemia, eye care and foot care. 3. Overweight - Counseled on the risks associated with being overweight. Will provide patient all the necessary assistance, counseling and positive reinforcement to facilitate weight loss. Consult park services specialist. 4. Hypertension - Restart suitable outpatient antihypertensive drugs when clinically appropriate. Revise regimen to ensure [id number] excellent BP control and commercial counsel patient on the injurious effects of uncontrolled hypertension. Nonpharmacologic measures to control hypertension like weight loss , salt restriction and exercise discussed. Importance of adherence to treatment regimen and attainment of normotension emphasized. 5. DVT prophylaxis - Lovenox 40 mg SQ q 24 hours. 6. Advance directives - Full code
[2018-11-27 21:30] LABS: URINE APPEARANCE CLEAR; URINE BILIRUBIN NEGATIVE (NEGATIVE); URINE COLOR YELLOW; URINE GLUCOSE (UA) NEGATIVE (NEGATIVE); URINE KETONE NEGATIVE (NEGATIVE); URINE LEUK ESTERASE NEGATIVE (NEGATIVE); URINE NITRITE NEGATIVE (NEGATIVE); URINE PROTEIN TRACE (NEGATIVE); URINE UROBILINOGEN 0.2 mg/dL (0.2-1.0)
--- NOTE | 2018-11-27 21:55 | HP ---
CHIEF COMPLAINT: PCP: Dr. Walker HISTORY OF PRESENT ILLNESS: 78 y/o/f with PMHx of HTN, HLD, borderline DM, anxiety here for new onset visual hallucinations today. On interview patient was stuporous and unresponsive to physical and verbal stimuli, history was obtained from grandkids. As per granddaughter the patient had no hallucinations on Sunday and has never had hallucinations before. Patient was complaining that there were bugs all around her house that were turning into dogs and humans. She told her friend about this today who called EMS and had the patient brought to the hospital. In the ER the patient was complaining that she was seeing a dog walking around the ED. As per the family the patient fell down two days ago between her bed and dresser. She was down for less than 30 seconds and was able to get up on her own. She denied any LOC or head injury at that time. Her only new medication is Flexiril, which she started 2 weeks ago for muscle cramps. It was prescribed for BID use but she has been taking it three or more times daily. As per the granddaughter the patients walking as worsened over the last few months and now she orders food to be delivered to the patients house. Patient has been complaining of head and neck pain as well for the last 2 days. ER course was notable for: (1) CT head negative. CT cervical spine significant for foraminal narrowing. CXR negative (2) CK elevated to 1338, CK MB - 12.8 (3) Lower extremity U/S study negative for DVT Recent Travel: none PAST MEDICAL HISTORY: HTN, HLD, DM, anxiety PAST SURGICAL HISTORY: Left kidney mass removal Social History: Smoking: past history, none currently Alcohol: past history, none currently Drugs: denies Allergies No Known Allergies Allergy (Verified 11/27/18 16:10) HOME MEDICATIONS: Home Medications Medication Instructions Recorded Atenolol [Tenormin -] 50 mg PO DAILY 12/30/15 Atorvastatin Ca [Lipitor] 10 mg PO HS 12/30/15 Buspirone HCl [Buspar -] 10 mg PO DAILY 12/30/15 Aspirin [ASA -] 81 mg PO DAILY 01/27/16 Ibuprofen 800 mg PO TID PRN 01/27/16 Omeprazole 40 mg PO DAILY 01/27/16 Cephalexin Monohydrate [Keflex -] 500 mg PO Q6HPO #8 capsule 04/23/18 Hydrocortisone Acetate [Anusol Hc 25 mg AR HS #14 supp.rect 06/11/17 Suppository -] Polyethylene Glycol 3350 [Miralax 17 gm PO TID bottle 06/11/17 119 gm Btl -] metroNIDAZOLE [Flagyl -] 250 mg PO TID #21 tablet 06/11/17 REVIEW OF SYSTEMS unable to obtain 2ndary to mental status PHYSICAL EXAMINATION Vital Signs - 24 hr 11/27/18 11/27/18 16:07 17:00 Temperature 97.3 F L Pulse Rate 98 H Pulse Rate [ 97 H Right] Respiratory 18 18 Rate Blood Pressure 176/100 H Blood Pressure 162/90 [Right Arm] O2 Sat by Pulse 93 L 97 Oximetry (%) GENERAL: Stuporous, snoring, unresponsive to verbal and physical stimuli including sternal rub. no acute distress HEAD: NC/AT EYES: pinpoint pupils EARS, NOSE, THROAT: Dry mucous membranes. Ears normal, nares patent NECK: negative brudzinskis sign. Normal range of motion, supple without lymphadenopathy, JVD, or masses. LUNGS: Breath sounds equal, clear to auscultation bilaterally. No wheezes, and no crackles. No accessory muscle use. HEART: Tachycardic. normal S1 and S2 without murmur, rub or gallop. ABDOMEN: Soft, nontender, not distended, normoactive bowel sounds, no guarding, no rebound, no masses. MUSCULOSKELETAL: No bony deformities or tenderness. UPPER EXTREMITIES: 2+ pulses, warm, well-perfused. No cyanosis. No clubbing. No peripheral edema. LOWER EXTREMITIES: 2+ pulses, warm, well-perfused. No calf tenderness. No peripheral edema. NEUROLOGICAL: pinpoint pupils, negative babinski bilaterally, 2+ bicepital reflexes, 2+ left patellar reflex, unable to appreciate right patellar reflex. normal muscle tone. obtunded. SKIN: Warm, dry, normal turgor, no rashes or lesions noted, normal capillary refill. Laboratory Results - last 24 hr 11/27/18 11/27/18 11/27/18 17:28 17:41 17:41 WBC 9.2 RBC 3.96 Hgb 11.7 Hct 35.4 MCV 89.3 MCH 29.6 MCHC 33.1 RDW 12.4 Plt Count 249 MPV 7.9 Absolute Neuts (auto) 7.0 Neutrophils % 76.3 Lymphocytes % 13.7 D Monocytes % 7.9 Eosinophils % 1.6 Basophils % 0.5 Nucleated RBC % 0 PT with INR 12.40 INR 1.05 PTT (Actin FS) 30.7 Sodium Potassium Chloride Carbon Dioxide Anion Gap BUN Creatinine Est GFR (CKD-EPI)AfAm Est GFR (CKD-EPI)NonAf POC Glucometer Random Glucose Calcium Magnesium Total Bilirubin AST ALT Alkaline Phosphatase Creatine Kinase 1338 H Creatine Kinase Index 0.9 CK-MB (CK-2) 12.8 H Troponin I < 0.02 Total Protein Albumin Lipase TSH Urine Color Urine Appearance Urine pH Ur Specific [place] Urine Protein Urine Glucose (UA) Urine Ketones Urine Blood Urine Nitrite Urine Bilirubin Urine Urobilinogen Ur Leukocyte Esterase 11/27/18 11/27/18 11/27/18 17:41 17:41 17:59 WBC RBC Hgb Hct MCV MCH MCHC RDW Plt Count MPV Absolute Neuts (auto) Neutrophils % Lymphocytes % Monocytes % Eosinophils % Basophils % Nucleated RBC % PT with INR INR PTT (Actin FS) Sodium 140 Potassium 3.5 Chloride 103 Carbon Dioxide 30 Anion Gap 6 L BUN 22.2 H Creatinine 1.1 Est GFR (CKD-EPI)AfAm 56.48 Est GFR (CKD-EPI)NonAf 48.73 POC Glucometer 58 Random Glucose 81 Calcium 9.3 Magnesium 1.6 L Total Bilirubin 0.7 AST 62 H ALT 39 Alkaline Phosphatase 79 Creatine Kinase Creatine Kinase Index Cancelled CK-MB (CK-2) Cancelled Troponin I Total Protein 7.3 Albumin 3.8 Lipase 140 TSH 1.41 Urine Color Urine Appearance Urine pH Ur Specific [place] Urine Protein Urine Glucose (UA) Urine Ketones Urine Blood Urine Nitrite Urine Bilirubin Urine Urobilinogen Ur Leukocyte Esterase 11/27/18 11/27/18 19:50 21:10 WBC RBC Hgb Hct MCV MCH MCHC RDW Plt Count MPV Absolute Neuts (auto) Neutrophils % Lymphocytes % Monocytes % Eosinophils % Basophils % Nucleated RBC % PT with INR INR PTT (Actin FS) Sodium Potassium Chloride Carbon Dioxide Anion Gap BUN Creatinine Est GFR (CKD-EPI)AfAm Est GFR (CKD-EPI)NonAf POC Glucometer 100 Random Glucose Calcium Magnesium Total Bilirubin AST ALT Alkaline Phosphatase Creatine Kinase Creatine Kinase Index CK-MB (CK-2) Troponin I Total Protein Albumin Lipase TSH Urine Color Yellow Urine Appearance Clear Urine pH 6.0 Ur Specific [place] 1.009 L Urine Protein Trace Urine Glucose (UA) Negative Urine Ketones Negative Urine Blood Negative Urine Nitrite Negative Urine Bilirubin Negative Urine Urobilinogen 0.2 Ur Leukocyte Esterase Negative Imaging: CT head - no acute pathology. Mild to moderate periventricular chronic microvascular ischemic changes are noted. CT cervical spine - no fractures seen. multilevel bilateral foraminal stenosis. moderate to marked C5-C6 central canal stenosis CXR - negative for acute pathology U/S lower extremity - no DVT in either leg ASSESSMENT/PLAN: 78 y/o/f with PMHx of HTN, HLD, borderline DM, anxiety here for new onset visual hallucinations today. Patient stuporous and unresponsive to physical and verbal stimuli during interview. 1) Acute Metabolic Encephalopathy - patient was normal baseline mental status on initial evaluation by ED staff, stuporous during our interview -infectious etiology unlikely as patient is afebrile and has no white count -possibly secondary to medication use -Patient's BGM fluctuating between 58-100 -given 25gm of D5W in ER, placed on D5LR now -Utox pending -ABG results normal -Speech/Swallow eval -Alcohol and acetominophen levels ordered -Neurology consulted, Dr. Gonzalez, recommended to watch patient and admit to ICU -Lactic acid, B12, folate, repeat BMP, CBC, RPR ordered -kennel worker consult for home and school visitor -Hold home meds 2)Rhabdomyolysis - patient with elevated CK -1338 and CK-MB - 12.8 -IVF, D5LR @ 100mls/hr -monitor 3)Hallucinations - patient reported visual hallucinations at home and in the ER -hold home meds, could be secondary to Flexiril and Pramipexole use 4)Prophylaxis -Heparin 5)FEN -LR @ 100mls/hr -NPO 6)Dispo -Admitted to ICU -Full code Visit type - Emergency Visit Emergency Visit: Yes ED Registration Date: 11/27/18 Care time: The patient presented to the Emergency Department on the above date and was hospitalized for further evaluation of their emergent condition. - New Patient This patient is new to me today: Yes Date on this admission: 11/27/18 - Critical Care Critical Care patient: Yes Total Critical Care Time (in minutes): 35 Critical Care Statement: The care of this patient involved high complexity decision making to prevent further life threatening deterioration of the patient 's condition and/or to evaluate & treat vital organ system(s) failure or risk of failure. ATTENDING PHYSICIAN STATEMENT I saw and evaluated the patient. I reviewed the resident's note and discussed the case with the resident. I agree with the resident's findings and plan as documented. SUBJECTIVE: OBJECTIVE: ASSESSMENT AND PLAN:
[2018-11-27] MEDS ORDERED: LACTATED RINGERS SOLUTION 1,000 ML/1,000 ML INFUS.BAG IV SCH (22:00)
[2018-11-27] MEDS ORDERED: HEPARIN NA (PORCINE) 5,000 UNITS/ML 1ML VIAL SQ SCH (22:00)
[2018-11-27 22:09] LABS: PHOSPHOROUS 3.3 mg/dL (2.5-4.9)
--- NOTE | 2018-11-27 22:25 | CONSULT ---
Consultation: REQUESTING PROVIDER: Ed team CONSULT REQUEST: We have been asked to medically evaluate this patient for (AMS ). HISTORY OF PRESENT ILLNESS: This is a 78 year old female with PMH significant for HTN, HLD, DM, and anxiety. She was brought to the ER by ambulance after she had started having visual hallucinations earlier today. Around 2PM, she called her friend and told her that bugs were entering her home and transforming into humans. Upon hearing this, her friend went over to the patient's house and called EMS. She believes that these images are real, and does not think that these are hallucinations. She has never had any similar episodes in the past. The patient also endorses a mild headache and neck pain, she does not know when it began. She has no associated auditory hallucinations, fevers, chills, photophobia, nausea, vomiting, SOB, chest pain, diarrhea, hematuria, polyuria, or dysuria. She has been taking prescription Flexiril BID for the past 2 weeks for leg cramps, and admits that she has been taking more than prescribed. She denies any other recent medication changes or illnesses. She denies any family history of Alzheimer's, dementia, or psychiatric illnesses. REVIEW OF SYSTEMS: un able to obtain PHYSICAL EXAMINATION Vital Signs - 24 hr 11/27/18 11/27/18 16:07 17:00 Temperature 97.3 F L Pulse Rate 98 H Pulse Rate [ 97 H Right] Respiratory 18 18 Rate Blood Pressure 176/100 H Blood Pressure 162/90 [Right Arm] O2 Sat by Pulse 93 L 97 Oximetry (%) GENERAL: Awake, alert, but very drowsy , HEAD: NC/AT EYES: pin point Pupils B/L , exophthalmus eyes EARS, NOSE, THROAT: Ears normal, nares patent, oropharynx clear without exudates. dry mucous membranes. NECK: supple LUNGS: Breath sounds equal, clear to auscultation bilaterally. No wheezes, and no crackles. No accessory muscle use. HEART: Regular rate and rhythm, normal S1 and S2 without murmur, rub or gallop. ABDOMEN: Soft, nontender, not distended, normoactive bowel sounds, LOWER EXTREMITIES: 2+ pulses, warm, well-perfused. No calf tenderness. No peripheral edema. NEUROLOGICAL: no focal deficit .drowsy and fluctuation in alertness and mental status Laboratory Results - last 24 hr 11/27/18 11/27/18 11/27/18 17:28 17:41 17:41 WBC 9.2 RBC 3.96 Hgb 11.7 Hct 35.4 MCV 89.3 MCH 29.6 MCHC 33.1 RDW 12.4 Plt Count 249 MPV 7.9 Absolute Neuts (auto) 7.0 Neutrophils % 76.3 Lymphocytes % 13.7 D Monocytes % 7.9 Eosinophils % 1.6 Basophils % 0.5 Nucleated RBC % 0 PT with INR 12.40 INR 1.05 PTT (Actin FS) 30.7 Sodium Potassium Chloride Carbon Dioxide Anion Gap BUN Creatinine Est GFR (CKD-EPI)AfAm Est GFR (CKD-EPI)NonAf POC Glucometer Random Glucose Calcium Phosphorus Magnesium Total Bilirubin AST ALT Alkaline Phosphatase Creatine Kinase 1338 H Creatine Kinase Index 0.9 CK-MB (CK-2) 12.8 H Troponin I < 0.02 Total Protein Albumin Lipase TSH Urine Color Urine Appearance Urine pH Ur Specific [place] Urine Protein Urine Glucose (UA) Urine Ketones Urine Blood Urine Nitrite Urine Bilirubin Urine Urobilinogen Ur Leukocyte Esterase 11/27/18 11/27/18 11/27/18 17:41 17:41 17:59 WBC RBC Hgb Hct MCV MCH MCHC RDW Plt Count MPV Absolute Neuts (auto) Neutrophils % Lymphocytes % Monocytes % Eosinophils % Basophils % Nucleated RBC % PT with INR INR PTT (Actin FS) Sodium 140 Potassium 3.5 Chloride 103 Carbon Dioxide 30 Anion Gap 6 L BUN 22.2 H Creatinine 1.1 Est GFR (CKD-EPI)AfAm 56.48 Est GFR (CKD-EPI)NonAf 48.73 POC Glucometer 58 Random Glucose 81 Calcium 9.3 Phosphorus 3.3 Magnesium 1.6 L Total Bilirubin 0.7 AST 62 H ALT 39 Alkaline Phosphatase 79 Creatine Kinase Creatine Kinase Index Cancelled CK-MB (CK-2) Cancelled Troponin I Total Protein 7.3 Albumin 3.8 Lipase 140 TSH 1.41 Urine Color Urine Appearance Urine pH Ur Specific [place] Urine Protein Urine Glucose (UA) Urine Ketones Urine Blood Urine Nitrite Urine Bilirubin Urine Urobilinogen Ur Leukocyte Esterase 11/27/18 11/27/18 19:50 21:10 WBC RBC Hgb Hct MCV MCH MCHC RDW Plt Count MPV Absolute Neuts (auto) Neutrophils % Lymphocytes % Monocytes % Eosinophils % Basophils % Nucleated RBC % PT with INR INR PTT (Actin FS) Sodium Potassium Chloride Carbon Dioxide Anion Gap BUN Creatinine Est GFR (CKD-EPI)AfAm Est GFR (CKD-EPI)NonAf POC Glucometer 100 Random Glucose Calcium Phosphorus Magnesium Total Bilirubin AST ALT Alkaline Phosphatase Creatine Kinase Creatine Kinase Index CK-MB (CK-2) Troponin I Total Protein Albumin Lipase TSH Urine Color Yellow Urine Appearance Clear Urine pH 6.0 Ur Specific [place] 1.009 L Urine Protein Trace Urine Glucose (UA) Negative Urine Ketones Negative Urine Blood Negative Urine Nitrite Negative Urine Bilirubin Negative Urine Urobilinogen 0.2 Ur Leukocyte Esterase Negative Active Medications Generic Name Dose Route Start Last Admin Trade Name Freq PRN Reason Stop Dose Admin Lactated Ringer's 1,000 ml in 1,000 mls @ 100 mls/hr 11/27/18 22:00 Lactated Ringers Solution IV 11/28/18 07:59 ASDIR KITA CBC, BMP 11/27/18 17:41 11/27/18 17:41 ASSESSMENT/PLAN: This is a 78 year old female with PMH significant for HTN, HLD, DM, and anxiety. She was brought to the ER by ambulance after she had started having visual hallucinations earlier today.admitted for AMS # Acute metabolic encephalopathy #AMS likely due to meds side effects # R.O serotonin syndrome # elevated CK R.O rhabdomyolysis cont hydration * labs and vitals WNL * no signs of infection * R.O reversible causes TSH, FA , B12 , RPR , electrolytes imbalance , dehydration * monitor BP, HR, Pulse oxy * IV fluids D5 RL @ 100 CC/hr * maintain o2 sat > 90 * urine and serum toxicology * consult neuro * Head CT negative * aspiration precautions , seizure precautions * NPO * quality assurance monitor final * monitor QTC , repeat EKG in AM * monitor Lfts , INR, PTT * BGM monitor Q 4 hr * avoid any hypnotic meds. * # HTN * resume losartan , hold lasix # HLD * cont statin when able to take PO # FEN * D5 LR @ 100 CC * monitor lytes and replete as needed * NPO # Proph * Hep SQ TID #Dispo : monitor in ICU over night till mental status improved , can down grad in AM # full code Dispo: We will continue to follow the patient. Thank you for this consultative opportunity. Visit type - Emergency Visit Emergency Visit: Yes ED Registration Date: 11/27/18 Care time: The patient presented to the Emergency Department on the above date and was hospitalized for further evaluation of their emergent condition. - New Patient This patient is new to me today: Yes Date on this admission: 11/27/18 - Critical Care Critical Care patient: Yes Total Critical Care Time (in minutes): 45 Critical Care Statement: The care of this patient involved high complexity decision making to prevent further life threatening deterioration of the patient 's condition and/or to evaluate & treat vital organ system(s) failure or risk of failure. ATTENDING PHYSICIAN STATEMENT I saw and evaluated the patient. I reviewed the resident's note and discussed the case with the resident. I agree with the resident's findings and plan as documented. SUBJECTIVE: OBJECTIVE: ASSESSMENT AND PLAN:
[2018-11-27 22:41] LABS: ARTERIAL BLD GAS O2 SATURATION 95.6 % (95-98); ARTERIAL BLOOD GAS BASE EXCESS 2.1 meq/l (-2-2); ARTERIAL BLOOD GAS PCO2 43.2 mmHg (35-45); ARTERIAL BLOOD GAS PO2 77.1 mmHg (80-100); ARTERIAL BLOOD GAS pH 7.41 (7.35-7.45); CARBOXYHEMOGLOBIN 1.4 % (0-2)
[2018-11-27 22:46] LABS: ALLENS TEST POSITIVE
[2018-11-27] MEDS ORDERED: DEXTROSE 5%-LACTATED RINGERS 1,000 ML IV SCH (23:00)
[2018-11-27] MEDS ORDERED: HEPARIN NA (PORCINE) 5,000 UNITS/ML 1ML VIAL ONE (23:53)
[2018-11-28] MEDS ORDERED: ONDANSETRON 4 MG/2 ML VIAL ONE (01:05)
[2018-11-28] MEDS ORDERED: FAMOTIDINE 20 MG/50 ML IVPB 20 MG/50 ML MG IVPB ONE (01:05)
[2018-11-28 05:02] LABS: BASO % 0.7 % (0-2.0); EOS % 2.1 % (0-4.5); HEMATOCRIT 32.2 % (32.4-45.2); HEMOGLOBIN 10.6 GM/dL (10.7-15.3); LYMPH % 17.4 % (8-40); MCH 29.4 pg (25.7-33.7); MEAN CELL VOLUME 89.1 fl (80-96); MEAN PLT VOLUME 8.1 fl (7.5-11.1); MONO % 12.2 % (3.8-10.2); NEUT % 67.6 % (42.8-82.8); PLATELET COUNT 206 K/MM3 (134-434); RBC 3.62 M/mm3 (3.60-5.2); RDW 12.3 % (11.6-15.6); WHITE BLOOD COUNT 6.6 K/mm3 (4.0-10.0)
[2018-11-28 06:11] LABS: ANION GAP 8 MMOL/L (8-16); BLOOD UREA NITROGEN 16.7 mg/dL (7-18); CALCIUM 8.7 mg/dL (8.5-10.1); CHLORIDE 107 mmol/L (98-107); CO2 29 mmol/L (21-32); GLUCOSE,RANDOM 83 mg/dL (74-106); MAGNESIUM 1.9 mg/dL (1.8-2.4); POTASSIUM 3.5 mmol/L (3.5-5.1); SODIUM 143 mmol/L (136-145)
--- NOTE | 2018-11-28 08:32 | PN ---
Physical Exam: SUBJECTIVE: Patient seen and examined at bedside in the ICU. Alert and oriented x3. Denies visual hallucinations overnight or this morning. Reports mild suprapubic abdominal pain. OBJECTIVE: Vital Signs Period Temp Pulse Resp BP Sys/Sylvester Pulse Ox Last 24 Hr 97.3 F-99.3 F 77-98 16-18 142-176/77-100 93-100 GENERAL: The patient is awake, alert, and fully oriented, in no acute distress. HEAD: Normal with no signs of trauma. EYES: PERRL, extraocular movements intact, sclera anicteric, conjunctiva clear. No ptosis. ENT: Ears normal, nares patent, oropharynx clear without exudates, moist mucous membranes. NECK: Trachea midline, full range of motion, supple. LUNGS: Breath sounds equal, clear to auscultation bilaterally, no wheezes, no crackles, no accessory muscle use. HEART: Regular rate and rhythm, S1, S2 without murmur, rub or gallop. ABDOMEN: Soft, nontender, nondistended, normoactive bowel sounds, no guarding, no rebound, no hepatosplenomegaly, no masses. EXTREMITIES: 2+ pulses, warm, well-perfused, no edema. NEUROLOGICAL: Cranial nerves II through XII grossly intact. Normal speech, gait not observed. No facial asymmetry. Moving all extremities. Negative pronator drift. Mild ataxia and bilateral LE proximal weakness. Mild cogwheel rigidity in BLE. Positive dysmetria. SKIN: Warm, dry, normal turgor, no rashes or lesions noted Laboratory Results - last 24 hr 11/27/18 11/27/18 11/27/18 17:28 17:41 17:41 WBC 9.2 RBC 3.96 Hgb 11.7 Hct 35.4 MCV 89.3 MCH 29.6 MCHC 33.1 RDW 12.4 Plt Count 249 MPV 7.9 Absolute Neuts (auto) 7.0 Neutrophils % 76.3 Lymphocytes % 13.7 D Monocytes % 7.9 Eosinophils % 1.6 Basophils % 0.5 Nucleated RBC % 0 PT with INR 12.40 INR 1.05 PTT (Actin FS) 30.7 Anticoagulation Therapy Puncture Site ABG pH ABG pCO2 at Pt Temp ABG pO2 at Pt Temp ABG HCO3 ABG O2 Sat (Measured) ABG O2 Content ABG Base Excess Jerry Test Carboxyhemoglobin Methemoglobin O2 Delivery Device Oxygen Flow Rate Vent Mode Vent Rate Mechanical Rate Pressure Support Vent Sodium Potassium Chloride Carbon Dioxide Anion Gap BUN Creatinine Est GFR (CKD-EPI)AfAm Est GFR (CKD-EPI)NonAf POC Glucometer Random Glucose Hemoglobin A1c % Lactic Acid Calcium Phosphorus Magnesium Total Bilirubin AST ALT Alkaline Phosphatase Creatine Kinase 1338 H Creatine Kinase Index 0.9 CK-MB (CK-2) 12.8 H Troponin I < 0.02 Total Protein Albumin Lipase Vitamin B12 Serum Folate TSH Urine Color Urine Appearance Urine pH Ur Specific Hinkley Urine Protein Urine Glucose (UA) Urine Ketones Urine Blood Urine Nitrite Urine Bilirubin Urine Urobilinogen Ur Leukocyte Esterase Acetaminophen Alcohol, Quantitative 11/27/18 11/27/18 11/27/18 17:41 17:41 17:59 WBC RBC Hgb Hct MCV MCH MCHC RDW Plt Count MPV Absolute Neuts (auto) Neutrophils % Lymphocytes % Monocytes % Eosinophils % Basophils % Nucleated RBC % PT with INR INR PTT (Actin FS) Anticoagulation Therapy Puncture Site ABG pH ABG pCO2 at Pt Temp ABG pO2 at Pt Temp ABG HCO3 ABG O2 Sat (Measured) ABG O2 Content ABG Base Excess Jerry Test Carboxyhemoglobin Methemoglobin O2 Delivery Device Oxygen Flow Rate Vent Mode Vent Rate Mechanical Rate Pressure Support Vent Sodium 140 Potassium 3.5 Chloride 103 Carbon Dioxide 30 Anion Gap 6 L BUN 22.2 H Creatinine 1.1 Est GFR (CKD-EPI)AfAm 56.48 Est GFR (CKD-EPI)NonAf 48.73 POC Glucometer 58 Random Glucose 81 Hemoglobin A1c % Lactic Acid Calcium 9.3 Phosphorus 3.3 Magnesium 1.6 L Total Bilirubin 0.7 AST 62 H ALT 39 Alkaline Phosphatase 79 Creatine Kinase Creatine Kinase Index Cancelled CK-MB (CK-2) Cancelled Troponin I Total Protein 7.3 Albumin 3.8 Lipase 140 Vitamin B12 Serum Folate TSH 1.41 Urine Color Urine Appearance Urine pH Ur Specific Hinkley Urine Protein Urine Glucose (UA) Urine Ketones Urine Blood Urine Nitrite Urine Bilirubin Urine Urobilinogen Ur Leukocyte Esterase Acetaminophen Alcohol, Quantitative 11/27/18 11/27/18 11/27/18 19:50 21:10 22:33 WBC RBC Hgb Hct MCV MCH MCHC RDW Plt Count MPV Absolute Neuts (auto) Neutrophils % Lymphocytes % Monocytes % Eosinophils % Basophils % Nucleated RBC % PT with INR INR PTT (Actin FS) Anticoagulation Therapy No Result Required. Puncture Site Right radial ABG pH 7.41 ABG pCO2 at Pt Temp 43.2 ABG pO2 at Pt Temp 77.1 L ABG HCO3 26.6 ABG O2 Sat (Measured) 95.6 ABG O2 Content 13.6 ABG Base Excess 2.1 H Jerry Test Positive Carboxyhemoglobin 1.4 Methemoglobin < 1.0 O2 Delivery Device No Result Required. Oxygen Flow Rate No Result Required. Vent Mode No Result Required. Vent Rate No Result Required. Mechanical Rate No Result Required. Pressure Support Vent No Result Required. Sodium Potassium Chloride Carbon Dioxide Anion Gap BUN Creatinine Est GFR (CKD-EPI)AfAm Est GFR (CKD-EPI)NonAf POC Glucometer 100 Random Glucose Hemoglobin A1c % Lactic Acid Calcium Phosphorus Magnesium Total Bilirubin AST ALT Alkaline Phosphatase Creatine Kinase Creatine Kinase Index CK-MB (CK-2) Troponin I Total Protein Albumin Lipase Vitamin B12 Serum Folate TSH Urine Color Yellow Urine Appearance Clear Urine pH 6.0 Ur Specific Hinkley 1.009 L Urine Protein Trace Urine Glucose (UA) Negative Urine Ketones Negative Urine Blood Negative Urine Nitrite Negative Urine Bilirubin Negative Urine Urobilinogen 0.2 Ur Leukocyte Esterase Negative Acetaminophen Alcohol, Quantitative 11/27/18 11/28/18 11/28/18 22:39 02:41 03:30 WBC RBC Hgb Hct MCV MCH MCHC RDW Plt Count MPV Absolute Neuts (auto) Neutrophils % Lymphocytes % Monocytes % Eosinophils % Basophils % Nucleated RBC % PT with INR INR PTT (Actin FS) Anticoagulation Therapy Puncture Site ABG pH ABG pCO2 at Pt Temp ABG pO2 at Pt Temp ABG HCO3 ABG O2 Sat (Measured) ABG O2 Content ABG Base Excess Jerry Test Carboxyhemoglobin Methemoglobin O2 Delivery Device Oxygen Flow Rate Vent Mode Vent Rate Mechanical Rate Pressure Support Vent Sodium 143 Potassium 3.5 Chloride 107 Carbon Dioxide 29 Anion Gap 8 BUN 16.7 Creatinine 1.0 Est GFR (CKD-EPI)AfAm 63.38 Est GFR (CKD-EPI)NonAf 54.68 POC Glucometer 78 Random Glucose 83 Hemoglobin A1c % Lactic Acid Calcium 8.7 Phosphorus 4.0 Magnesium 1.9 Total Bilirubin AST ALT Alkaline Phosphatase Creatine Kinase 871 H Creatine Kinase Index 0.8 CK-MB (CK-2) 7.8 H Troponin I < 0.02 Total Protein Albumin Lipase Vitamin B12 977 Serum Folate 36 H TSH Urine Color Urine Appearance Urine pH Ur Specific Hinkley Urine Protein Urine Glucose (UA) Urine Ketones Urine Blood Urine Nitrite Urine Bilirubin Urine Urobilinogen Ur Leukocyte Esterase Acetaminophen <2.0 Alcohol, Quantitative 11/28/18 11/28/18 11/28/18 03:30 03:30 03:30 WBC 6.6 RBC 3.62 Hgb 10.6 L Hct 32.2 L MCV 89.1 MCH 29.4 MCHC 33.0 RDW 12.3 Plt Count 206 MPV 8.1 Absolute Neuts (auto) 4.5 Neutrophils % 67.6 Lymphocytes % 17.4 D Monocytes % 12.2 H Eosinophils % 2.1 Basophils % 0.7 Nucleated RBC % 0 PT with INR INR PTT (Actin FS) Anticoagulation Therapy Puncture Site ABG pH ABG pCO2 at Pt Temp ABG pO2 at Pt Temp ABG HCO3 ABG O2 Sat (Measured) ABG O2 Content ABG Base Excess Jerry Test Carboxyhemoglobin Methemoglobin O2 Delivery Device Oxygen Flow Rate Vent Mode Vent Rate Mechanical Rate Pressure Support Vent Sodium Potassium Chloride Carbon Dioxide Anion Gap BUN Creatinine Est GFR (CKD-EPI)AfAm Est GFR (CKD-EPI)NonAf POC Glucometer Random Glucose Hemoglobin A1c % Lactic Acid 0.9 Calcium Phosphorus Magnesium Cancelled Total Bilirubin AST ALT Alkaline Phosphatase Creatine Kinase Creatine Kinase Index CK-MB (CK-2) Troponin I Total Protein Albumin Lipase Vitamin B12 Serum Folate Cancelled TSH Urine Color Urine Appearance Urine pH Ur Specific Hinkley Urine Protein Urine Glucose (UA) Urine Ketones Urine Blood Urine Nitrite Urine Bilirubin Urine Urobilinogen Ur Leukocyte Esterase Acetaminophen Alcohol, Quantitative 11/28/18 11/28/18 11/28/18 03:30 03:30 03:30 WBC RBC Hgb Hct MCV MCH MCHC RDW Plt Count MPV Absolute Neuts (auto) Neutrophils % Lymphocytes % Monocytes % Eosinophils % Basophils % Nucleated RBC % PT with INR INR PTT (Actin FS) Anticoagulation Therapy Puncture Site ABG pH ABG pCO2 at Pt Temp ABG pO2 at Pt Temp ABG HCO3 ABG O2 Sat (Measured) ABG O2 Content ABG Base Excess Jerry Test Carboxyhemoglobin Methemoglobin O2 Delivery Device Oxygen Flow Rate Vent Mode Vent Rate Mechanical Rate Pressure Support Vent Sodium Potassium Chloride Carbon Dioxide Anion Gap BUN Creatinine Est GFR (CKD-EPI)AfAm Est GFR (CKD-EPI)NonAf POC Glucometer Random Glucose Hemoglobin A1c % 5.3 Lactic Acid Calcium Phosphorus Magnesium Total Bilirubin AST ALT Alkaline Phosphatase Creatine Kinase Creatine Kinase Index CK-MB (CK-2) Troponin I Total Protein Albumin Lipase Vitamin B12 Cancelled Serum Folate TSH Urine Color Urine Appearance Urine pH Ur Specific Hinkley Urine Protein Urine Glucose (UA) Urine Ketones Urine Blood Urine Nitrite Urine Bilirubin Urine Urobilinogen Ur Leukocyte Esterase Acetaminophen Alcohol, Quantitative < 3.0 11/28/18 11/28/18 03:30 06:12 WBC RBC Hgb Hct MCV MCH MCHC RDW Plt Count MPV Absolute Neuts (auto) Neutrophils % Lymphocytes % Monocytes % Eosinophils % Basophils % Nucleated RBC % PT with INR INR PTT (Actin FS) Anticoagulation Therapy Puncture Site ABG pH ABG pCO2 at Pt Temp ABG pO2 at Pt Temp ABG HCO3 ABG O2 Sat (Measured) ABG O2 Content ABG Base Excess Jerry Test Carboxyhemoglobin Methemoglobin O2 Delivery Device Oxygen Flow Rate Vent Mode Vent Rate Mechanical Rate Pressure Support Vent Sodium Potassium Chloride Carbon Dioxide Anion Gap BUN Creatinine Est GFR (CKD-EPI)AfAm Est GFR (CKD-EPI)NonAf POC Glucometer 73 Random Glucose Hemoglobin A1c % Lactic Acid Calcium Phosphorus Magnesium Total Bilirubin AST ALT Alkaline Phosphatase Creatine Kinase Cancelled Creatine Kinase Index CK-MB (CK-2) Troponin I Cancelled Total Protein Albumin Lipase Vitamin B12 Serum Folate TSH Urine Color Urine Appearance Urine pH Ur Specific Hinkley Urine Protein Urine Glucose (UA) Urine Ketones Urine Blood Urine Nitrite Urine Bilirubin Urine Urobilinogen Ur Leukocyte Esterase Acetaminophen Alcohol, Quantitative Active Medications Generic Name Dose Route Start Last Admin Trade Name Freq PRN Reason Stop Dose Admin Chlorhexidine Gluconate 1 applic 11/28/18 22:00 Hibiclens For Decolonization - TP HS KITA Heparin Sodium (Porcine) 5,000 unit 11/27/18 22:00 11/28/18 00:00 Heparin - SQ 5,000 unit TID KITA Administration Dextrose/Lactated Ringer's 1,000 mls @ 100 mls/hr 11/27/18 23:00 11/28/18 00: 01 D5-Lr - IV 100 mls/hr ASDIR KITA Administration Mupirocin 1 applic 11/28/18 10:00 Bactroban Ointment (For Decolonization) - NS 12/03/18 09:59 BID [facility] ASSESSMENT/PLAN: This is a 78 year old female with PMH significant for HTN, HLD, DM, and anxiety. She was brought to the ER by ambulance after she had started having visual hallucinations earlier today.admitted for AMS #Neuro: Acute metabolic encephalopathy, AMS likely due to meds side effects, r/ o serotonin syndrome -neuro consult: visual hallucination likely medication related (mirapex and flexeril) -Head CT neg -seizure precautions -avoid hypnotic meds -MRI brain, c-spine, t-spine w/o contrast -folate, B12, TSH -visual hallucinations yesterday, none today -restless leg syndrome # -elevated CK R.O rhabdomyolysis cont hydration, trend CPK -labs and vitals WNL -no signs of infection -R.O reversible causes TSH, FA , B12 , RPR , electrolytes imbalance , dehydration -urine/serum tox #Endo -BGM monitor Q 4 hr #CV -monitor BP, HR, Pulse oxy HTN -resume losartan , hold lasix HLD -cont statin when able to take PO -surveillance system monitor -monitor QTc #GI -monitor LFTs, INR, PTT #Resp -maintain o2 sat > 90 -aspiration precautions #F/E/N -D5 LR @ 100 CC -monitor lytes and replete PRN -NPO DVTppx: Hep SQ TID Code Status: full code Dispo: continue ICU care or stroke unit monitoring Visit type - Emergency Visit Emergency Visit: No - New Patient This patient is new to me today: No - Critical Care Critical Care patient: Yes Total Critical Care Time (in minutes): 35 Critical Care Statement: The care of this patient involved high complexity decision making to prevent further life threatening deterioration of the patient 's condition and/or to evaluate & treat vital organ system(s) failure or risk of failure. ATTENDING PHYSICIAN STATEMENT I saw and evaluated the patient. I reviewed the resident's note and discussed the case with the resident. I agree with the resident's findings and plan as documented. SUBJECTIVE: OBJECTIVE: ASSESSMENT AND PLAN:
--- NOTE | 2018-11-28 08:50 | CON.NEURO ---
Consult - Alcohol/Substance Use Hx Alcohol Use: No - Smoking History Smoking history: Never smoked Have you smoked in the past 12 months: No Aproximately how many cigarettes per day: 2 If you are a former smoker, when did you quit?: 5 YR AGO Home Medications - Allergies Allergies/Adverse Reactions: Allergies Allergy/AdvReac Type Severity Reaction Status Date / Time No Known Allergies Allergy Verified 11/27/18 16:10 - Home Medications Home Medications: Ambulatory Orders Atorvastatin Ca [Lipitor] 20 mg PO HS 12/30/15 Buspirone HCl [Buspar -] 10 mg PO DAILY 12/30/15 Omeprazole 40 mg PO DAILY 01/27/16 Cyclobenzaprine HCl 10 mg PO BID 11/27/18 Losartan 50Mg/Hctz 12.5MG [Hyzaar -] 1 tab PO DAILY 11/27/18 Pramipexole Dihydrochloride [Mirapex -] 0.25 mg PO HS 11/27/18 Physical Exam-Neuro Vital Signs: Vital Signs Temperature 97.6 F 11/28/18 08:00 Pulse Rate 79 11/28/18 08:00 Respiratory Rate 17 11/28/18 08:00 Blood Pressure 175/96 H 11/28/18 08:00 O2 Sat by Pulse Oximetry (%) 96 11/28/18 08:27 Labs: CBC, BMP 11/28/18 03:30 11/28/18 02:41 INR, PTT INR 1.05 (0.83-1.09) 11/27/18 17:28 Assessment/Plan cc Hallucination HPI 78 year old female history of HTN, HLD, Borderline DM, Anxiety, leg spasticity and Restless leg syndrome. She presented to hospital on november 27 for visual hallucination, and she become unreponsive and shew was admitted to ICU. Her current medication include buspirone, flexeril and mirapex. She is being seen by dr solares as outpatient. Patient was seeing her house turning into dogs and humans. Patient was complaining dogs were walking around. There is no fever, her ct head and ct c spine was negative. Patient ck was high. she was diagnosed with restless leg syndrome and was given mirapex. PAST MEDICAL HISTORY: HTN, HLD, DM, anxiety PAST SURGICAL HISTORY: Left kidney mass removal Social History: Smoking: past history, none currently Alcohol: past history, none currently Drugs: denies Allergies No Known Allergies Allergy (Verified 11/27/18 16:10) HOME MEDICATIONS: Home Medications Medication Instructions Recorded Atenolol [Tenormin -] 50 mg PO DAILY 12/30/15 Atorvastatin Ca [Lipitor] 10 mg PO HS 12/30/15 Buspirone HCl [Buspar -] 10 mg PO DAILY 12/30/15 Aspirin [ASA -] 81 mg PO DAILY 01/27/16 Ibuprofen 800 mg PO TID PRN 01/27/16 Omeprazole 40 mg PO DAILY 01/27/16 Cephalexin Monohydrate [Keflex -] 500 mg PO Q6HPO #8 capsule 06/11/17 Hydrocortisone Acetate [Anusol Hc 25 mg RI HS #14 supp.rect 06/11/17 Suppository -] Polyethylene Glycol 3350 [Miralax 17 gm PO TID bottle 06/11/17 119 gm Btl -] metroNIDAZOLE [Flagyl -] 250 mg PO TID #21 tablet 06/11/17 ROS,FH,SH reviewed in chart NEUROLOGICAL EXAMINATION Alert oriented x 3, speech is slurred, neck is supple afebrile eomi, pupils reactive no facial asymmetry moving all extremity Patient has no pronator drift no motor weakness in upper extremity she is moving lower extremity, there is mild bilateral proximal muscle weakness reflex is grade 3, planter is withdrwal there is cogwheel rigidty in lower extremity ct head and ct c spine unremarkable Assessment: Visual hallucination likely to be medication related , mirapex and flexeril, it were stopped and patient is feeling better and having no hallucination at this time. 2. lower extremity rigidity and mild proximal weakness, as per patient she was diagnosed with restless leg syndrome, I suggest to obtain mri of brain, mri of c spien and t spine in view of patient dymetria, hyper reflexia and mild proximal leg weakness. - Dr Solares can be notified about this patient as well Thanking you so much
--- NOTE | 2018-11-28 09:05 | CON.NEURO ---
Consult - Alcohol/Substance Use Hx Alcohol Use: No - Smoking History Smoking history: Never smoked Have you smoked in the past 12 months: No Aproximately how many cigarettes per day: 2 If you are a former smoker, when did you quit?: 5 YR AGO Home Medications - Allergies Allergies/Adverse Reactions: Allergies Allergy/AdvReac Type Severity Reaction Status Date / Time No Known Allergies Allergy Verified 11/27/18 16:10 - Home Medications Home Medications: Ambulatory Orders Atorvastatin Ca [Lipitor] 20 mg PO HS 12/30/15 Buspirone HCl [Buspar -] 10 mg PO DAILY 12/30/15 Omeprazole 40 mg PO DAILY 01/27/16 Cyclobenzaprine HCl 10 mg PO BID 11/27/18 Losartan 50Mg/Hctz 12.5MG [Hyzaar -] 1 tab PO DAILY 11/27/18 Pramipexole Dihydrochloride [Mirapex -] 0.25 mg PO HS 11/27/18 Physical Exam-Neuro Vital Signs: Vital Signs Temperature 97.6 F 11/28/18 08:00 Pulse Rate 79 11/28/18 08:00 Respiratory Rate 17 11/28/18 08:00 Blood Pressure 175/96 H 11/28/18 08:00 O2 Sat by Pulse Oximetry (%) 96 11/28/18 08:27 Labs: CBC, BMP 11/28/18 03:30 11/28/18 02:41 INR, PTT INR 1.05 (0.83-1.09) 11/27/18 17:28
--- NOTE | 2018-11-28 09:11 | PN ---
Teaching Attending Note Name of Resident: Luiza Huynh ATTENDING PHYSICIAN STATEMENT I saw and evaluated the patient. I reviewed the resident's note and discussed the case with the resident. I agree with the resident's findings and plan as documented. SUBJECTIVE: Patient is feeling better back to her baseline. AAOx3, no focal deficit. OBJECTIVE: Vital Signs Temperature 97.6 F 11/28/18 08:00 Pulse Rate 79 11/28/18 08:00 Respiratory Rate 17 11/28/18 08:00 Blood Pressure 175/96 H 11/28/18 08:00 O2 Sat by Pulse Oximetry (%) 96 11/28/18 08:27 GENERAL: The patient is awake, alert, and fully oriented, in no acute distress. HEAD: Normal with no signs of trauma. EYES: PERRL, extraocular movements intact, sclera anicteric, conjunctiva clear. ENT: Ears normal, oropharynx clear without exudates, moist mucous membranes. NECK: Trachea midline, full range of motion, supple. LUNGS: Breath sounds equal, clear to auscultation bilaterally, no wheezes, no crackles, no accessory muscle use. HEART: Regular rate and rhythm, S1, S2 without murmur, rub or gallop. ABDOMEN: Soft, nontender, nondistended, normoactive bowel sounds, no guarding, no rebound, no hepatosplenomegaly, no masses. EXTREMITIES: 2+ pulses, warm, well-perfused, no edema. NEUROLOGICAL: Cranial nerves II through XII grossly intact. Normal speech, gait not observed. PSYCH: Normal mood, normal affect. SKIN: Warm, dry, normal turgor, no rashes or lesions noted CBCD WBC 6.6 K/mm3 (4.0-10.0) 11/28/18 03:30 RBC 3.62 M/mm3 (3.60-5.2) 11/28/18 03:30 Hgb 10.6 GM/dL (10.7-15.3) L 11/28/18 03:30 Hct 32.2 % (32.4-45.2) L 11/28/18 03:30 MCV 89.1 fl (80-96) 11/28/18 03:30 MCHC 33.0 g/dl (32.0-36.0) 11/28/18 03:30 RDW 12.3 % (11.6-15.6) 11/28/18 03:30 Plt Count 206 K/MM3 (134-434) 11/28/18 03:30 MPV 8.1 fl (7.5-11.1) 11/28/18 03:30 CMP Sodium 143 mmol/L (136-145) 11/28/18 02:41 Potassium 3.5 mmol/L (3.5-5.1) 11/28/18 02:41 Chloride 107 mmol/L (98-107) 11/28/18 02:41 Carbon Dioxide 29 mmol/L (21-32) 11/28/18 02:41 Anion Gap 8 MMOL/L (8-16) 11/28/18 02:41 BUN 16.7 mg/dL (7-18) 11/28/18 02:41 Creatinine 1.0 mg/dL (0.55-1.3) 11/28/18 02:41 Random Glucose 83 mg/dL (74-106) 11/28/18 02:41 Calcium 8.7 mg/dL (8.5-10.1) 11/28/18 02:41 Total Bilirubin 0.7 mg/dL (0.2-1) 11/27/18 17:41 AST 62 U/L (15-37) H 11/27/18 17:41 ALT 39 U/L (13-61) 11/27/18 17:41 Alkaline Phosphatase 79 U/L (45-117) 11/27/18 17:41 Total Protein 7.3 g/dl (6.4-8.2) 11/27/18 17:41 Albumin 3.8 g/dl (3.4-5.0) 11/27/18 17:41 CARDIAC ENZYMES Creatine Kinase 871 U/L (26-192) H 11/28/18 02:41 Troponin I < 0.02 ng/ml (0.00-0.05) 11/28/18 02:41 Current Medications Generic Name Dose Route Start Last Admin Trade Name Freq PRN Reason Stop Dose Admin Chlorhexidine Gluconate 1 applic 11/28/18 22:00 Hibiclens For Decolonization - TP HS KITA Heparin Sodium (Porcine) 5,000 unit 11/27/18 22:00 11/28/18 00:00 Heparin - SQ 5,000 unit TID KITA Administration Dextrose/Lactated Ringer's 1,000 mls @ 100 mls/hr 11/27/18 23:00 11/28/18 00: 01 D5-Lr - IV 100 mls/hr ASDIR KITA Administration Mupirocin 1 applic 11/28/18 10:00 Bactroban Ointment (For Decolonization) - NS 12/03/18 09:59 BID KITA Home Medications Medication Instructions Recorded Atorvastatin Ca [Lipitor] 20 mg PO HS 12/30/15 Buspirone HCl [Buspar -] 10 mg PO DAILY 12/30/15 Omeprazole 40 mg PO DAILY 01/27/16 Cyclobenzaprine HCl 10 mg PO BID 11/27/18 Losartan 50Mg/Hctz 12.5MG [Hyzaar 1 tab PO DAILY 11/27/18 -] Pramipexole Dihydrochloride 0.25 mg PO HS 11/27/18 [Mirapex -] Current Medications Generic Name Dose Route Start Last Admin Trade Name Freq PRN Reason Stop Dose Admin Atenolol 50 mg 11/28/18 11:15 11/28/18 11:11 Tenormin - PO 50 mg DAILY KITA Administration Chlorhexidine Gluconate 1 applic 11/28/18 22:00 Hibiclens For Decolonization - TP HS [facility] Heparin Sodium (Porcine) 5,000 unit 11/27/18 22:00 11/28/18 00:00 Heparin - SQ 5,000 unit TID KITA Administration Dextrose/Lactated Ringer's 1,000 mls @ 100 mls/hr 11/27/18 23:00 11/28/18 00: 01 D5-Lr - IV 100 mls/hr ASDIR KITA Administration Losartan Potassium 50 mg 11/29/18 10:00 Cozaar - PO DAILY KITA Mupirocin 1 applic 11/28/18 10:00 11/28/18 12:14 Bactroban Ointment (For Decolonization) - NS 12/03/18 09:59 1 dose BID KITA Administration CXR shows elevation of right hemidiaphragm and no gross infiltrates C-spine CT showed "Multilevel degenerative disc and facet joint changes with moderate to marked C5-6 central canal stenosis and multilevel bilateral foraminal stenosis noncontrast head CT: negative Doppler LE: No DVT EKG shows NSR with no significant ST-T wave changes. ASSESSMENT AND PLAN: Patient is a 78 year old woman with a PMHx of Migraines, HTN, Borderline DM, HLD , Anxiety, Diverticular GI bleeding, Hypothyroidsm and Partial left nephrectomy who presents to the ER for evaluation of AMS for 3 hours. This is a patient of who is notified will see the patient. # AMS due to metabolic encephalopahy presented with hallucinations with unclear etiology . improved now. # HTN: continue atenolol and losartan as per her neurologist , discussed with . # R renal mass s/p nephrectomy DVT ppx- SCD. Dysphagia screen : Yes - Passed by the nurse documented.
[2018-11-28] MEDS ORDERED: LOSARTAN 50MG/HCTZ 12.5MG 1 TAB (FP) PO SCH (10:45)
[2018-11-28] MEDS ORDERED: LOSARTAN POTASSIUM 50 MG TABLET (FP) PO ONE (11:00)
[2018-11-28] MEDS ORDERED: ATENOLOL 50 MG TABLET (FP) ONE ×2 (11:06→11:07)
[2018-11-28] MEDS ORDERED: ACETAMINOPHEN 325 MG TABLET (FP) ONE (11:10)
[2018-11-28] MEDS ORDERED: ATENOLOL 50 MG TABLET (FP) PO SCH (11:15)
[2018-11-28] MEDS: MUPIROCIN 2% TOPICAL OINTMENT FOR DECOLONIZATION NS SCH ×2 (11:16→12:14)
--- NOTE | 2018-11-28 12:20 | EKG ---
Test Reason : Blood Pressure : / mmHG Vent. Rate : 087 BPM Atrial Rate : 087 BPM P-R Int : 164 ms QRS Dur : 086 ms QT Int : 350 ms P-R-T Axes : 069 020 047 degrees QTc Int : 421 ms SINUS RHYTHM WITH MARKED SINUS ARRHYTHMIA OTHERWISE NORMAL ECG WHEN COMPARED WITH ECG OF 11-NOV-2018 04:51, NO SIGNIFICANT CHANGE WAS FOUND Confirmed by CARLOS LABOY MD ([id number]) on 11/28/2018 12:19:50 PM Referred By: Confirmed By:CARLOS LABOY MD
--- NOTE | 2018-11-28 12:27 | PN ---
Teaching Attending Note Name of Resident: Chandelr Don ATTENDING PHYSICIAN STATEMENT I saw and evaluated the patient. I reviewed the resident's note and discussed the case with the resident. I agree with the resident's findings and plan as documented. SUBJECTIVE: Patient seen and examined in the ICU. Awake and alert. Denies CP or SOB. No hallucinations overnight. Intake & Output 11/25/18 11/26/18 11/27/18 11/28/18 23:59 23:59 23:59 23:59 Weight 167 lb Last Vital Signs Temp Pulse Resp BP Pulse Ox 97.5 F L 74 18 184/96 H 96 11/28/18 10:18 11/28/18 10:18 11/28/18 10:18 11/28/18 10:18 11/28/18 08:27 Active Medications Atenolol (Tenormin -) 50 mg PO DAILY [facility] Last Admin: 11/28/18 11:11 Dose: 50 mg Chlorhexidine Gluconate (Hibiclens For Decolonization -) 1 applic TP HS [facility] Heparin Sodium (Porcine) (Heparin -) 5,000 unit SQ TID [facility] Last Admin: 11/28/18 00:00 Dose: 5,000 unit Dextrose/Lactated Ringer's (D5-Lr -) 1,000 mls @ 100 mls/hr IV ASDIR [facility] Last Admin: 11/28/18 00:01 Dose: 100 mls/hr Losartan Potassium (Cozaar -) 50 mg PO DAILY [facility] Mupirocin (Bactroban Ointment (For Decolonization) -) 1 applic NS BID [facility] Stop: 12/03/18 09:59 Last Admin: 11/28/18 12:14 Dose: 1 dose GENERAL: Awake, alert, nonfocal HEAD: NC/AT EYES: pin point Pupils B/L , exophthalmus eyes EARS, NOSE, THROAT: Ears normal, nares patent, oropharynx clear without exudates. dry mucous membranes. NECK: supple LUNGS: Breath sounds equal, clear to auscultation bilaterally. No wheezes, and no crackles. No accessory muscle use. HEART: Regular rate and rhythm, normal S1 and S2 without murmur, rub or gallop. ABDOMEN: Soft, nontender, not distended, normoactive bowel sounds, LOWER EXTREMITIES: 2+ pulses, warm, well-perfused. No calf tenderness. No peripheral edema. NEUROLOGICAL: LE rigidity, non-focal Laboratory Results - last 24 hr 11/27/18 11/27/18 11/27/18 17:28 17:41 17:41 WBC 9.2 RBC 3.96 Hgb 11.7 Hct 35.4 MCV 89.3 MCH 29.6 MCHC 33.1 RDW 12.4 Plt Count 249 MPV 7.9 Absolute Neuts (auto) 7.0 Neutrophils % 76.3 Lymphocytes % 13.7 D Monocytes % 7.9 Eosinophils % 1.6 Basophils % 0.5 Nucleated RBC % 0 PT with INR 12.40 INR 1.05 PTT (Actin FS) 30.7 Sodium Potassium Chloride Carbon Dioxide Anion Gap BUN Creatinine Est GFR (CKD-EPI)AfAm Est GFR (CKD-EPI)NonAf POC Glucometer Random Glucose Calcium Phosphorus Magnesium Total Bilirubin AST ALT Alkaline Phosphatase Creatine Kinase 1338 H Creatine Kinase Index 0.9 CK-MB (CK-2) 12.8 H Troponin I < 0.02 Total Protein Albumin Lipase TSH Urine Color Urine Appearance Urine pH Ur Specific [place] Urine Protein Urine Glucose (UA) Urine Ketones Urine Blood Urine Nitrite Urine Bilirubin Urine Urobilinogen Ur Leukocyte Esterase 11/27/18 11/27/18 11/27/18 17:41 17:41 17:59 WBC RBC Hgb Hct MCV MCH MCHC RDW Plt Count MPV Absolute Neuts (auto) Neutrophils % Lymphocytes % Monocytes % Eosinophils % Basophils % Nucleated RBC % PT with INR INR PTT (Actin FS) Sodium 140 Potassium 3.5 Chloride 103 Carbon Dioxide 30 Anion Gap 6 L BUN 22.2 H Creatinine 1.1 Est GFR (CKD-EPI)AfAm 56.48 Est GFR (CKD-EPI)NonAf 48.73 POC Glucometer 58 Random Glucose 81 Calcium 9.3 Phosphorus 3.3 Magnesium 1.6 L Total Bilirubin 0.7 AST 62 H ALT 39 Alkaline Phosphatase 79 Creatine Kinase Creatine Kinase Index Cancelled CK-MB (CK-2) Cancelled Troponin I Total Protein 7.3 Albumin 3.8 Lipase 140 TSH 1.41 Urine Color Urine Appearance Urine pH Ur Specific [place] Urine Protein Urine Glucose (UA) Urine Ketones Urine Blood Urine Nitrite Urine Bilirubin Urine Urobilinogen Ur Leukocyte Esterase 11/27/18 11/27/18 19:50 21:10 WBC RBC Hgb Hct MCV MCH MCHC RDW Plt Count MPV Absolute Neuts (auto) Neutrophils % Lymphocytes % Monocytes % Eosinophils % Basophils % Nucleated RBC % PT with INR INR PTT (Actin FS) Sodium Potassium Chloride Carbon Dioxide Anion Gap BUN Creatinine Est GFR (CKD-EPI)AfAm Est GFR (CKD-EPI)NonAf POC Glucometer 100 Random Glucose Calcium Phosphorus Magnesium Total Bilirubin AST ALT Alkaline Phosphatase Creatine Kinase Creatine Kinase Index CK-MB (CK-2) Troponin I Total Protein Albumin Lipase TSH Urine Color Yellow Urine Appearance Clear Urine pH 6.0 Ur Specific [place] 1.009 L Urine Protein Trace Urine Glucose (UA) Negative Urine Ketones Negative Urine Blood Negative Urine Nitrite Negative Urine Bilirubin Negative Urine Urobilinogen 0.2 Ur Leukocyte Esterase Negative ASSESSMENT/PLAN: Resolving AMS (?) due to medications R/O Metabolic Encephalopathy HPL HTN DM Anxiety Hallucinations Elevated CPK IVF Hold home meds for now Neurology evaluation noted MRI to be obtained Follow CPK VTE prophylaxis Can monitored on the stroke unit Dr Loera
--- NOTE | 2018-11-28 12:30 | CONSULT ---
Admitting History and Physical - Primary Care Physician PCP: Ezequiel Patrick - Admission History of Present Illness: 78 y/o/f with PMHx of HTN, HLD, borderline DM, anxiety here for new onset visual hallucinations admitted stuporous and unresponsive ct head and ct c spine unremarkable. Pending MRI Neuro- Visual hallucination likely to be medication related , mirapex and flexeril, it were stopped and patient is feeling better and having no hallucination at this time Selected Entries 11/28/18 11/28/18 11/28/18 06:47 08:00 10:18 Breakfast Temperature 97.6 F 97.6 F 97.5 F L 11/28/18 10:20 Breakfast NPO Temperature Laboratory Tests 11/27/18 11/28/18 17:41 03:30 WBC 9.2 6.6 History Source: Patient, Medical Record Limitations to Obtaining History: No Limitations - Smoking History Smoking history: Never smoked Have you smoked in the past 12 months: No Aproximately how many cigarettes per day: 2 If you are a former smoker, when did you quit?: 5 YR AGO - Alcohol/Substance Use Hx Alcohol Use: No History - Admission Reason For Visit: Altered Mental Status - Diagnostics X-ray: Report Reviewed CT Scan: Report Reviewed MRI: Pending - General Mental Status: Alert and Oriented, Awake and Alert, Able to Follow Commands Attention: Intact Ability to Follow Directions: Excellent Head/Neck Control: WFL - Hearing Hearing: Functional Speech Evaluation - Communication Primary Language: URDU Oral Expression Ability: Yes: Mild Impairment - Speech Production Able to Make Needs Known: Yes: WNL Intelligibility: Yes: Mildly Impaired - Speech Characteristics Voice Loudness: Normal Voice Pitch: Yes: Normal Voice Phonatory-based Quality: Yes: Quivering, Strident, Harsh Speech Pattern: Impaired Speech Clarity: < 75% Nasal Resonance: Normal Articulation: Yes: Precise Rate of Speech: Intact - Language/Auditory Comprehension Follows: Yes: 2 Stage Simple Commands Observation: Able to respond to yes/no queries: Yes, Yes/No Confusion: No, Comprehends Conversational Speech: Yes - Language/Verbal Expression Able to Respond to Simple Queries: Yes: WNL Able to Communicate Wants and Needs: Yes: WNL Functional Communication Status: Yes: WNL - Memory/Perception rodent exterminator Memory: Yes: WNL Short Term Memory: Yes: WNL - Swallow Evaluation/Bedside Assessment Current Nutritional Intake: NPO, Other (meds po ordered with good tolerance, per nursing.) Oral Secretions: Yes: WFL Dentition: Yes: Adequate Facial Symmetry at Rest: Symmetrical Facial Symmetry on Retraction: Symmetrical Facial Movement: Controlled Against Resistance Opening: Normal Against Resistance Closing: Normal Pucker Lips: Normal Smile: Normal Lingual Movement: Normal, Symmetric Lingual Speed of Movement: Normal Lingual Movement Strgth Against Opposition: Normal Lingual Movement Characteristics: Normal Velopharyngeal Movement: Normal Laryngeal Movement: Labored,delay initiation Rate of Intake: WFL Bolus Size: WFL Oral Prep Time: WFL A-P Transit: WFL Pocketing: None Timing of Swallow: Delayed Coughing/Throat Clear: Yes ((+) 3 oz test) Recommendations - Speech Evaluation, Impression/Plan Impression: (+) 3 oz test. Pt reports coughing on thin liquids intermittently for a while. Denies h/o of PNA. (+) 3oz water test and single sips intermittently. Vocal tremor/harsh. 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 O x 3. - Dysphagia Impressions/Plan Swallowing Skills: Impaired Dysphagia Impressions: Mild Impairment *Silent aspiration: cannot be R/O at bedside Dysphagia Treatment Plan: Small Bites, Trial Feedings, Safe Rate, 1/2 tsp. at a time, Elevate HOB during feed, Other (single sips.) Recommendations: Modified Barium Swallow (if cough on thin liquids, congestionb , fever) - Recommendations Diet Consistency: Regular (soft) Medication Administration: Whole with water Liquids: Thin Liquids (if cough, nectar thick liquid/mbs)
[2018-11-28] MEDS ORDERED: DEXTROSE 50%-WATER - 25 GM/50 ML VIAL IVPUSH ONE (12:54)
--- NOTE | 2018-11-28 18:09 | PN ---
Physical Exam: SUBJECTIVE: Patient seen and examined. Pt was AAoX3. and only complaints of Headache OBJECTIVE: Vital Signs Period Temp Pulse Resp BP Sys/Sylvester Pulse Ox Last 24 Hr 97.1 F-99.3 F 55-86 15-19 129-191/67-96 96-100 GENERAL: The patient is awake, alert, and fully oriented, in no acute distress. HEAD: Normal with no signs of trauma. EYES: PERRL, extraocular movements intact, sclera anicteric, conjunctiva clear. No ptosis. ENT: Ears normal, nares patent, oropharynx clear without exudates, moist mucous membranes. NECK: Trachea midline, full range of motion, supple. LUNGS: Breath sounds equal, clear to auscultation bilaterally, no wheezes, no crackles, no accessory muscle use. HEART: Regular rate and rhythm, S1, S2 without murmur, rub or gallop. ABDOMEN: Soft, nontender, nondistended, normoactive bowel sounds, no guarding, no rebound, no hepatosplenomegaly, no masses. EXTREMITIES: 2+ pulses, warm, well-perfused, no edema. NEUROLOGICAL: Cranial nerves II through XII grossly intact. Normal speech, gait not observed. strength 5/5 in all extremities and sensation intact. positive rigidity in the LEs PSYCH: Normal mood, normal affect. Laboratory Results - last 24 hr 11/27/18 11/27/18 11/27/18 17:28 17:41 17:41 WBC RBC Hgb Hct MCV MCH MCHC RDW Plt Count MPV Absolute Neuts (auto) Neutrophils % Lymphocytes % Monocytes % Eosinophils % Basophils % Nucleated RBC % PT with INR 12.40 INR 1.05 PTT (Actin FS) 30.7 Anticoagulation Therapy Puncture Site ABG pH ABG pCO2 at Pt Temp ABG pO2 at Pt Temp ABG HCO3 ABG O2 Sat (Measured) ABG O2 Content ABG Base Excess Jerry Test Carboxyhemoglobin Methemoglobin O2 Delivery Device Oxygen Flow Rate Vent Mode Vent Rate Mechanical Rate Pressure Support Vent Sodium 140 Potassium 3.5 Chloride 103 Carbon Dioxide 30 Anion Gap 6 L BUN 22.2 H Creatinine 1.1 Est GFR (CKD-EPI)AfAm 56.48 Est GFR (CKD-EPI)NonAf 48.73 POC Glucometer Random Glucose 81 Hemoglobin A1c % Lactic Acid Calcium 9.3 Phosphorus 3.3 Magnesium 1.6 L Total Bilirubin 0.7 AST 62 H ALT 39 Alkaline Phosphatase 79 Creatine Kinase 1338 H Creatine Kinase Index 0.9 CK-MB (CK-2) 12.8 H Troponin I < 0.02 Total Protein 7.3 Albumin 3.8 Lipase 140 Vitamin B12 Serum Folate TSH 1.41 Urine Color Urine Appearance Urine pH Ur Specific [place] Urine Protein Urine Glucose (UA) Urine Ketones Urine Blood Urine Nitrite Urine Bilirubin Urine Urobilinogen Ur Leukocyte Esterase Opiates Screen Methadone Screen Acetaminophen Barbiturate Screen Phencyclidine Screen Ur Amphetamines Screen MDMA (Ecstasy) Screen Benzodiazepines Screen Cocaine Screen U Marijuana (THC) Screen Alcohol, Quantitative RPR Titer 11/27/18 11/27/18 11/27/18 17:41 19:50 21:00 WBC RBC Hgb Hct MCV MCH MCHC RDW Plt Count MPV Absolute Neuts (auto) Neutrophils % Lymphocytes % Monocytes % Eosinophils % Basophils % Nucleated RBC % PT with INR INR PTT (Actin FS) Anticoagulation Therapy Puncture Site ABG pH ABG pCO2 at Pt Temp ABG pO2 at Pt Temp ABG HCO3 ABG O2 Sat (Measured) ABG O2 Content ABG Base Excess Jerry Test Carboxyhemoglobin Methemoglobin O2 Delivery Device Oxygen Flow Rate Vent Mode Vent Rate Mechanical Rate Pressure Support Vent Sodium Potassium Chloride Carbon Dioxide Anion Gap BUN Creatinine Est GFR (CKD-EPI)AfAm Est GFR (CKD-EPI)NonAf POC Glucometer 100 Random Glucose Hemoglobin A1c % Lactic Acid Calcium Phosphorus Magnesium Total Bilirubin AST ALT Alkaline Phosphatase Creatine Kinase Creatine Kinase Index Cancelled CK-MB (CK-2) Cancelled Troponin I Total Protein Albumin Lipase Vitamin B12 Serum Folate TSH Urine Color Urine Appearance Urine pH Ur Specific [place] Urine Protein Urine Glucose (UA) Urine Ketones Urine Blood Urine Nitrite Urine Bilirubin Urine Urobilinogen Ur Leukocyte Esterase Opiates Screen Cancelled Methadone Screen Cancelled Acetaminophen Barbiturate Screen Cancelled Phencyclidine Screen Cancelled Ur Amphetamines Screen Cancelled MDMA (Ecstasy) Screen Cancelled Benzodiazepines Screen Cancelled Cocaine Screen Cancelled U Marijuana (THC) Screen Cancelled Alcohol, Quantitative RPR Titer 11/27/18 11/27/18 11/27/18 21:10 22:33 22:39 WBC RBC Hgb Hct MCV MCH MCHC RDW Plt Count MPV Absolute Neuts (auto) Neutrophils % Lymphocytes % Monocytes % Eosinophils % Basophils % Nucleated RBC % PT with INR INR PTT (Actin FS) Anticoagulation Therapy No Result Required. Puncture Site Right radial ABG pH 7.41 ABG pCO2 at Pt Temp 43.2 ABG pO2 at Pt Temp 77.1 L ABG HCO3 26.6 ABG O2 Sat (Measured) 95.6 ABG O2 Content 13.6 ABG Base Excess 2.1 H Jerry Test Positive Carboxyhemoglobin 1.4 Methemoglobin < 1.0 O2 Delivery Device No Result Required. Oxygen Flow Rate No Result Required. Vent Mode No Result Required. Vent Rate No Result Required. Mechanical Rate No Result Required. Pressure Support Vent No Result Required. Sodium Potassium Chloride Carbon Dioxide Anion Gap BUN Creatinine Est GFR (CKD-EPI)AfAm Est GFR (CKD-EPI)NonAf POC Glucometer 78 Random Glucose Hemoglobin A1c % Lactic Acid Calcium Phosphorus Magnesium Total Bilirubin AST ALT Alkaline Phosphatase Creatine Kinase Creatine Kinase Index CK-MB (CK-2) Troponin I Total Protein Albumin Lipase Vitamin B12 Serum Folate TSH Urine Color Yellow Urine Appearance Clear Urine pH 6.0 Ur Specific [place] 1.009 L Urine Protein Trace Urine Glucose (UA) Negative Urine Ketones Negative Urine Blood Negative Urine Nitrite Negative Urine Bilirubin Negative Urine Urobilinogen 0.2 Ur Leukocyte Esterase Negative Opiates Screen Methadone Screen Acetaminophen Barbiturate Screen Phencyclidine Screen Ur Amphetamines Screen MDMA (Ecstasy) Screen Benzodiazepines Screen Cocaine Screen U Marijuana (THC) Screen Alcohol, Quantitative RPR Titer 11/28/18 11/28/18 11/28/18 02:41 03:30 03:30 WBC 6.6 RBC 3.62 Hgb 10.6 L Hct 32.2 L MCV 89.1 MCH 29.4 MCHC 33.0 RDW 12.3 Plt Count 206 MPV 8.1 Absolute Neuts (auto) 4.5 Neutrophils % 67.6 Lymphocytes % 17.4 D Monocytes % 12.2 H Eosinophils % 2.1 Basophils % 0.7 Nucleated RBC % 0 PT with INR INR PTT (Actin FS) Anticoagulation Therapy Puncture Site ABG pH ABG pCO2 at Pt Temp ABG pO2 at Pt Temp ABG HCO3 ABG O2 Sat (Measured) ABG O2 Content ABG Base Excess Jerry Test Carboxyhemoglobin Methemoglobin O2 Delivery Device Oxygen Flow Rate Vent Mode Vent Rate Mechanical Rate Pressure Support Vent Sodium 143 Potassium 3.5 Chloride 107 Carbon Dioxide 29 Anion Gap 8 BUN 16.7 Creatinine 1.0 Est GFR (CKD-EPI)AfAm 63.38 Est GFR (CKD-EPI)NonAf 54.68 POC Glucometer Random Glucose 83 Hemoglobin A1c % Lactic Acid Calcium 8.7 Phosphorus 4.0 Magnesium 1.9 Total Bilirubin AST ALT Alkaline Phosphatase Creatine Kinase 871 H Creatine Kinase Index 0.8 CK-MB (CK-2) 7.8 H Troponin I < 0.02 Total Protein Albumin Lipase Vitamin B12 977 Serum Folate 36 H TSH 1.89 Urine Color Urine Appearance Urine pH Ur Specific [place] Urine Protein Urine Glucose (UA) Urine Ketones Urine Blood Urine Nitrite Urine Bilirubin Urine Urobilinogen Ur Leukocyte Esterase Opiates Screen Methadone Screen Acetaminophen <2.0 Barbiturate Screen Phencyclidine Screen Ur Amphetamines Screen MDMA (Ecstasy) Screen Benzodiazepines Screen Cocaine Screen U Marijuana (THC) Screen Alcohol, Quantitative RPR Titer 11/28/18 11/28/18 11/28/18 03:30 03:30 03:30 WBC RBC Hgb Hct MCV MCH MCHC RDW Plt Count MPV Absolute Neuts (auto) Neutrophils % Lymphocytes % Monocytes % Eosinophils % Basophils % Nucleated RBC % PT with INR INR PTT (Actin FS) Anticoagulation Therapy Puncture Site ABG pH ABG pCO2 at Pt Temp ABG pO2 at Pt Temp ABG HCO3 ABG O2 Sat (Measured) ABG O2 Content ABG Base Excess Jerry Test Carboxyhemoglobin Methemoglobin O2 Delivery Device Oxygen Flow Rate Vent Mode Vent Rate Mechanical Rate Pressure Support Vent Sodium Potassium Chloride Carbon Dioxide Anion Gap BUN Creatinine Est GFR (CKD-EPI)AfAm Est GFR (CKD-EPI)NonAf POC Glucometer Random Glucose Hemoglobin A1c % 5.3 Lactic Acid 0.9 Calcium Phosphorus Magnesium Cancelled Total Bilirubin AST ALT Alkaline Phosphatase Creatine Kinase Creatine Kinase Index CK-MB (CK-2) Troponin I Total Protein Albumin Lipase Vitamin B12 Serum Folate Cancelled TSH Urine Color Urine Appearance Urine pH Ur Specific [place] Urine Protein Urine Glucose (UA) Urine Ketones Urine Blood Urine Nitrite Urine Bilirubin Urine Urobilinogen Ur Leukocyte Esterase Opiates Screen Methadone Screen Acetaminophen Barbiturate Screen Phencyclidine Screen Ur Amphetamines Screen MDMA (Ecstasy) Screen Benzodiazepines Screen Cocaine Screen U Marijuana (THC) Screen Alcohol, Quantitative RPR Titer 11/28/18 11/28/18 11/28/18 03:30 03:30 03:30 WBC RBC Hgb Hct MCV MCH MCHC RDW Plt Count MPV Absolute Neuts (auto) Neutrophils % Lymphocytes % Monocytes % Eosinophils % Basophils % Nucleated RBC % PT with INR INR PTT (Actin FS) Anticoagulation Therapy Puncture Site ABG pH ABG pCO2 at Pt Temp ABG pO2 at Pt Temp ABG HCO3 ABG O2 Sat (Measured) ABG O2 Content ABG Base Excess Jerry Test Carboxyhemoglobin Methemoglobin O2 Delivery Device Oxygen Flow Rate Vent Mode Vent Rate Mechanical Rate Pressure Support Vent Sodium Potassium Chloride Carbon Dioxide Anion Gap BUN Creatinine Est GFR (CKD-EPI)AfAm Est GFR (CKD-EPI)NonAf POC Glucometer Random Glucose Hemoglobin A1c % Lactic Acid Calcium Phosphorus Magnesium Total Bilirubin AST ALT Alkaline Phosphatase Creatine Kinase Creatine Kinase Index CK-MB (CK-2) Troponin I Total Protein Albumin Lipase Vitamin B12 Cancelled Serum Folate TSH Urine Color Urine Appearance Urine pH Ur Specific [place] Urine Protein Urine Glucose (UA) Urine Ketones Urine Blood Urine Nitrite Urine Bilirubin Urine Urobilinogen Ur Leukocyte Esterase Opiates Screen Methadone Screen Acetaminophen Barbiturate Screen Phencyclidine Screen Ur Amphetamines Screen MDMA (Ecstasy) Screen Benzodiazepines Screen Cocaine Screen U Marijuana (THC) Screen Alcohol, Quantitative < 3.0 RPR Titer Nonreactive 11/28/18 11/28/18 11/28/18 03:30 06:12 12:53 WBC RBC Hgb Hct MCV MCH MCHC RDW Plt Count MPV Absolute Neuts (auto) Neutrophils % Lymphocytes % Monocytes % Eosinophils % Basophils % Nucleated RBC % PT with INR INR PTT (Actin FS) Anticoagulation Therapy Puncture Site ABG pH ABG pCO2 at Pt Temp ABG pO2 at Pt Temp ABG HCO3 ABG O2 Sat (Measured) ABG O2 Content ABG Base Excess Jerry Test Carboxyhemoglobin Methemoglobin O2 Delivery Device Oxygen Flow Rate Vent Mode Vent Rate Mechanical Rate Pressure Support Vent Sodium Potassium Chloride Carbon Dioxide Anion Gap BUN Creatinine Est GFR (CKD-EPI)AfAm Est GFR (CKD-EPI)NonAf POC Glucometer 73 64 Random Glucose Hemoglobin A1c % Lactic Acid Calcium Phosphorus Magnesium Total Bilirubin AST ALT Alkaline Phosphatase Creatine Kinase Cancelled Creatine Kinase Index CK-MB (CK-2) Troponin I Cancelled Total Protein Albumin Lipase Vitamin B12 Serum Folate TSH Urine Color Urine Appearance Urine pH Ur Specific [place] Urine Protein Urine Glucose (UA) Urine Ketones Urine Blood Urine Nitrite Urine Bilirubin Urine Urobilinogen Ur Leukocyte Esterase Opiates Screen Methadone Screen Acetaminophen Barbiturate Screen Phencyclidine Screen Ur Amphetamines Screen MDMA (Ecstasy) Screen Benzodiazepines Screen Cocaine Screen U Marijuana (THC) Screen Alcohol, Quantitative RPR Titer 11/28/18 14:23 WBC RBC Hgb Hct MCV MCH MCHC RDW Plt Count MPV Absolute Neuts (auto) Neutrophils % Lymphocytes % Monocytes % Eosinophils % Basophils % Nucleated RBC % PT with INR INR PTT (Actin FS) Anticoagulation Therapy Puncture Site ABG pH ABG pCO2 at Pt Temp ABG pO2 at Pt Temp ABG HCO3 ABG O2 Sat (Measured) ABG O2 Content ABG Base Excess Jerry Test Carboxyhemoglobin Methemoglobin O2 Delivery Device Oxygen Flow Rate Vent Mode Vent Rate Mechanical Rate Pressure Support Vent Sodium Potassium Chloride Carbon Dioxide Anion Gap BUN Creatinine Est GFR (CKD-EPI)AfAm Est GFR (CKD-EPI)NonAf POC Glucometer 137 Random Glucose Hemoglobin A1c % Lactic Acid Calcium Phosphorus Magnesium Total Bilirubin AST ALT Alkaline Phosphatase Creatine Kinase Creatine Kinase Index CK-MB (CK-2) Troponin I Total Protein Albumin Lipase Vitamin B12 Serum Folate TSH Urine Color Urine Appearance Urine pH Ur Specific [place] Urine Protein Urine Glucose (UA) Urine Ketones Urine Blood Urine Nitrite Urine Bilirubin Urine Urobilinogen Ur Leukocyte Esterase Opiates Screen Methadone Screen Acetaminophen Barbiturate Screen Phencyclidine Screen Ur Amphetamines Screen MDMA (Ecstasy) Screen Benzodiazepines Screen Cocaine Screen U Marijuana (THC) Screen Alcohol, Quantitative RPR Titer Active Medications Generic Name Dose Route Start Last Admin Trade Name Freq PRN Reason Stop Dose Admin Atenolol 50 mg 11/29/18 10:00 Tenormin - PO DAILY [facility] Heparin Sodium (Porcine) 5,000 unit 11/28/18 22:00 Heparin - SQ TID [facility] Dextrose/Lactated Ringer's 1,000 mls @ 100 mls/hr 11/28/18 17:36 D5-Lr - IV ASDIR [facility] Losartan Potassium 50 mg 11/29/18 10:00 Cozaar - PO DAILY [facility] ASSESSMENT/PLAN: 78 y/o/f with PMHx of HTN, HLD, borderline DM, anxiety here for new onset visual hallucinations today. Patient stuporous and unresponsive to physical and verbal stimuli during interview. Acute Metabolic Encephalopathy normal now. pt back to baseline BP was elevated in the 190s on multiple occasions. started on atenolol 50 mg daily and losartan 50mg. Pt back to baseline. infectious etiology unlikely as patient is afebrile and has no white count possibly secondary to medication use since patient was taking flexeril at higher than prescribed dose. HOLDING home meds placed on D5LR due to low blood glucose UA negative ABG results normal passed dysphagia screen. soft diet for now tropx negx2 HbA1C 5.3 Alcohol and acetominophen levels negative Lactic acid 0.9, B12 977, folate 36, BMP WNL, CBC WNL, RPR nonreactive, TSH 1.41 Pt was able to ambulate with PT Rhabdomyolysis CK -1338 and CK-MB - 12.8 Now at 871 and CkMB 7.8 IVF, D5LR @ 100mls/hr monitor Hallucinations 2/2 secondary to Flexiril and Pramipexole use pt no longer having them hold home meds Prophylaxis Heparin Visit type - Emergency Visit Emergency Visit: Yes ED Registration Date: 11/27/18 Care time: The patient presented to the Emergency Department on the above date and was hospitalized for further evaluation of their emergent condition. - New Patient This patient is new to me today: Yes Date on this admission: 11/28/18 - Critical Care Critical Care patient: Yes Total Critical Care Time (in minutes): 35 Critical Care Statement: The care of this patient involved high complexity decision making to prevent further life threatening deterioration of the patient 's condition and/or to evaluate & treat vital organ system(s) failure or risk of failure. - Discharge Referral Referred to [facility] Med [facility] No ATTENDING PHYSICIAN STATEMENT I saw and evaluated the patient. I reviewed the resident's note and discussed the case with the resident. I agree with the resident's findings and plan as documented. SUBJECTIVE: OBJECTIVE: ASSESSMENT AND PLAN:
[2018-11-28] MEDS ORDERED: CHLORHEXIDINE GLUCONATE 4% CLEANSER FOR DECOLONIZATION TP SCH (22:00)
[2018-11-28] MEDS: HEPARIN NA (PORCINE) 5,000 UNITS/ML 1ML VIAL SQ SCH (22:24)
[2018-11-28] MEDS: DEXTROSE 5%-LACTATED RINGERS 1,000 ML IV SCH (22:24)
[2018-11-28] MEDS ORDERED: ACETAMINOPHEN 325 MG TABLET (FP) PO ONE (22:48)
[2018-11-29] MEDS: HEPARIN NA (PORCINE) 5,000 UNITS/ML 1ML VIAL SQ SCH ×3 (06:16→21:03)
[2018-11-29 07:33] LABS: BASO % 0.3 % (0-2.0); EOS % 1.7 % (0-4.5); HEMOGLOBIN 10.4 GM/dL (10.7-15.3); LYMPH % 13.4 % (8-40); MCH 29.7 pg (25.7-33.7); MCHC 33.6 g/dl (32.0-36.0); MEAN CELL VOLUME 88.5 fl (80-96); MEAN PLT VOLUME 7.9 fl (7.5-11.1); MONO % 8.8 % (3.8-10.2); NEUT % 75.8 % (42.8-82.8); PLATELET COUNT 239 K/MM3 (134-434); RDW 12.3 % (11.6-15.6); WHITE BLOOD COUNT 8.3 K/mm3 (4.0-10.0)
[2018-11-29 07:57] LABS: ALBUMIN 2.9 g/dl (3.4-5.0); BILIRUBIN,TOTAL 0.7 mg/dL (0.2-1); BLOOD UREA NITROGEN 18.8 mg/dL (7-18); CALCIUM 9.2 mg/dL (8.5-10.1); MAGNESIUM 1.7 mg/dL (1.8-2.4); PHOSPHOROUS 3.1 mg/dL (2.5-4.9); POTASSIUM 3.8 mmol/L (3.5-5.1); TOT PROT 6.2 g/dl (6.4-8.2)
[2018-11-29] MEDS: ATENOLOL 50 MG TABLET (FP) PO SCH ×2 (08:17→09:50)
[2018-11-29] MEDS: LOSARTAN POTASSIUM 50 MG TABLET (FP) PO SCH ×2 (08:17→09:50)
[2018-11-29] MEDS ORDERED: LOSARTAN POTASSIUM 50 MG TABLET (FP) PO SCH (10:00)
--- NOTE | 2018-11-29 10:22 | PN ---
Progress Note, [employer] - Note Progress Note: Selected Entries 11/28/18 11/28/18 11/28/18 06:47 08:00 10:18 Lunch Supper Temperature 97.6 F 97.6 F 97.5 F L 11/28/18 11/28/18 11/28/18 13:57 15:44 19:45 Lunch 100% Supper 100% Temperature 97.1 F L 11/29/18 11/29/18 02:00 09:00 Lunch Supper Temperature 98.4 F 98 F Laboratory Tests 11/29/18 06:43 WBC 8.3 Tolerating diet. D/C plan -STR.
--- NOTE | 2018-11-29 11:38 | PN ---
Progress Note (short form) - Note Progress Note: NEUROlOGY PROGRESS: Events reviewed. Coverage note from Dr. Gonzalez read and appreciated. 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 Last seen in office consultation 08/15/18 and maintained on atenolol 50 mg po daily for both migraines and BP and pramipexole 0.25/0.50 mg HS for RLS. Within past two weeks, experienced worsening nocturnal "whole body muscle spasms , "swelling" "worm sensations" in legs L >R. Was given Flexeril per PMD and admits she was taking more than prescribed and also she ran out of atenolol. Then describes she began "seeing worms," "animals" and people that weren't really there during daytime and evening hours, but knew they weren't real. Walks with cane and walker at home. Denies recurrent ETOH. BP on admission 176/100. Originally admitted to ICU and now on 4W. States she feels almost "back to normal" without hallucinations since D/C of flexoril and pramipexole. But, still can't walk. Review of systems sig for one fall forward at home while leaning over to plug her phone in. Both her and her daughter have noticed some change in gait recently. MRI of brain (C-) reviewed: Scattered, chronic diffuse supratentorial, periventricular ischemic changes. Midline cerebellar degeneration and atrophy. MRI of C spine and thoracic spine (C-): Mild DJD without cord compression. WBC= 9.2 MCV- 89.3 UA and urine tox neg. B12= 977 pg%. TSH= 1.41. Mg++= 1.7 mg% Vascular studies of legs negative RADHA: Bps 130-160s/70-100s. Cor reg. Neck supple. Neg SLR. Neg Natalee's. NEURO: Scanning dysarthria. Mild OMS is present. +glabella CNII-CNXII: Exophthalmos. Full singer. Full EOM's without Nystagmus. Motor: No drift or tremor. Min.Cogwheeling with reinforcement R > L. Sl. Decreased [place] on R. Strength normal. Reflexes brisk in arms, decreased KJ's , absent AJ's. Plantars silent. Coordination: HTS dysmetria >>> FTN dystaxia. Axial titubating tremor Sensation: Decreased vibration toes. Romberg + Gait: Stands with assist but increased titubation. Frozen gait. Spontaneous retropulsion. Impression: Mild OMS worsened by Toxic-metabolic Encephalopathy due to polypharmacy abuse. Chronic cerebellar ataxia- clearly worse today Migraine Headaches- quiescent Restless Limbs syndrome Developing Extrapyramidal features (R>L). Suggest: Continue Atenolol 50 mg - 100 mg for both BP and migraine prophylaxis Check Fe++, TIBC, Ferritin, BAL, Parenteral thiamine. Observe for possible ETOH withdrawal. Observe off pramipexole and Flexeril. 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
--- NOTE | 2018-11-29 13:37 | PN ---
Physical Exam: SUBJECTIVE: Patient seen and examined. Pt was AAoX3. and only complaints of Headache. denies any hallucinations OBJECTIVE: Vital Signs Period Temp Pulse Resp BP Sys/Sylvester Pulse Ox Last 24 Hr 97.1 F-98.4 F 70-82 15-18 129-168/67-100 98 GENERAL: The patient is awake, alert, and fully oriented, in no acute distress. HEAD: Normal with no signs of trauma. EYES: PERRL, extraocular movements intact, sclera anicteric, conjunctiva clear. No ptosis. ENT: Ears normal, nares patent, oropharynx clear without exudates, moist mucous membranes. NECK: Trachea midline, full range of motion, supple. LUNGS: Breath sounds equal, clear to auscultation bilaterally, no wheezes, no crackles, no accessory muscle use. HEART: Regular rate and rhythm, S1, S2 without murmur, rub or gallop. ABDOMEN: Soft, nontender, nondistended, normoactive bowel sounds, no guarding, no rebound, no hepatosplenomegaly, no masses. EXTREMITIES: 2+ pulses, warm, well-perfused, no edema. NEUROLOGICAL: Cranial nerves II through XII grossly intact. Normal speech, gait not observed. strength 5/5 in all extremities and sensation intact. positive rigidity in the LEs PSYCH: Normal mood, normal affect. Laboratory Results - last 24 hr 11/28/18 11/29/18 11/29/18 14:23 06:43 06:43 WBC 8.3 RBC 3.50 L Hgb 10.4 L Hct 31.0 L MCV 88.5 MCH 29.7 MCHC 33.6 RDW 12.3 Plt Count 239 MPV 7.9 Absolute Neuts (auto) 6.3 Neutrophils % 75.8 Lymphocytes % 13.4 D Monocytes % 8.8 Eosinophils % 1.7 Basophils % 0.3 Nucleated RBC % 0 Sodium 142 Potassium 3.8 Chloride 108 H Carbon Dioxide 29 Anion Gap 4 L BUN 18.8 H Creatinine 1.0 Est GFR (CKD-EPI)AfAm 63.38 Est GFR (CKD-EPI)NonAf 54.68 POC Glucometer 137 Random Glucose 87 Calcium 9.2 Phosphorus 3.1 Magnesium 1.7 L Total Bilirubin 0.7 AST 43 H ALT 36 Alkaline Phosphatase 73 Total Protein 6.2 L Albumin 2.9 L Active Medications Generic Name Dose Route Start Last Admin Trade Name Freq PRN Reason Stop Dose Admin Atenolol 50 mg 11/29/18 10:00 11/29/18 09:50 Tenormin - PO Not Given DAILY KITA Gabapentin 300 mg 11/29/18 22:00 Neurontin - PO HS KITA Heparin Sodium (Porcine) 5,000 unit 11/28/18 22:00 11/29/18 06:16 Heparin - SQ 5,000 unit TID KITA Administration Dextrose/Lactated Ringer's 1,000 mls @ 100 mls/hr 11/28/18 17:36 11/28/18 22: 24 D5-Lr - IV 100 mls/hr ASDIR KITA Administration Losartan Potassium 50 mg 11/29/18 10:00 11/29/18 09:50 Cozaar - PO Not Given DAILY KITA ASSESSMENT/PLAN: 78 y/o/f with PMHx of HTN, HLD, borderline DM, anxiety here for new onset visual hallucinations today. Patient stuporous and unresponsive to physical and verbal stimuli during interview. Acute Metabolic Encephalopathy normal now. pt back to baseline BP was elevated in the 190s on multiple occasions. started on atenolol 50 mg daily and losartan 50mg. Pt back to baseline. MRI of brain (C-) reviewed: Scattered, chronic diffuse supratentorial, periventricular ischemic changes. Midline cerebellar degeneration and atrophy. MRI of C spine and thoracic spine (C-): Mild DJD without cord compression. infectious etiology unlikely as patient is afebrile and has no white count possibly secondary to medication use since patient was taking flexeril at higher than prescribed dose. HOLDING home meds placed on D5LR due to low blood glucose UA negative ABG results normal passed dysphagia screen. soft diet for now tropx negx2 HbA1C 5.3 Alcohol and acetominophen levels negative Lactic acid 0.9, B12 977, folate 36, BMP WNL, CBC WNL, RPR nonreactive, TSH 1.41 Pt was able to ambulate with PT suggesting rehab . sr. social media & mobile manager on case Rhabdomyolysis CK -1338 and CK-MB - 12.8 most recent at 871 and CkMB 7.8 IVF, D5LR @ 100mls/hr monitor Hallucinations 2/2 secondary to Flexiril and Pramipexole use pt no longer having them hold those meds still started on gabapentin 300mg HS iron studies sent as per Dr Solares for restless leg syndrome. Prophylaxis Heparin Visit type - Emergency Visit Emergency Visit: Yes ED Registration Date: 11/27/18 Care time: The patient presented to the Emergency Department on the above date and was hospitalized for further evaluation of their emergent condition. - New Patient This patient is new to me today: No - Critical Care Critical Care patient: No - Discharge Referral Referred to [facility] Med P.C.: No ATTENDING PHYSICIAN STATEMENT I saw and evaluated the patient. I reviewed the resident's note and discussed the case with the resident. I agree with the resident's findings and plan as documented. SUBJECTIVE: OBJECTIVE: ASSESSMENT AND PLAN:
--- NOTE | 2018-11-29 17:46 | PN ---
Teaching Attending Note Name of Resident: Luiza Huynh ATTENDING PHYSICIAN STATEMENT I saw and evaluated the patient. I reviewed the resident's note and discussed the case with the resident. I agree with the resident's findings and plan as documented. SUBJECTIVE: Patient is feeling better with no acute distress. OBJECTIVE: Vital Signs Temperature 98.4 F 11/29/18 14:25 Pulse Rate 78 11/29/18 14:25 Respiratory Rate 16 11/29/18 14:25 Blood Pressure 148/75 11/29/18 14:25 O2 Sat by Pulse Oximetry (%) 98 11/28/18 21:00 GENERAL: The patient is awake, alert, and fully oriented, in no acute distress. HEAD: Normal with no signs of trauma. EYES: PERRL, extraocular movements intact, sclera anicteric, conjunctiva clear. ENT: Ears normal, oropharynx clear without exudates, moist mucous membranes. NECK: Trachea midline, full range of motion, supple. LUNGS: Breath sounds equal, clear to auscultation bilaterally, no wheezes, no crackles, no accessory muscle use. HEART: Regular rate and rhythm, S1, S2 without murmur, rub or gallop. ABDOMEN: Soft, nontender, nondistended, normoactive bowel sounds, no guarding, no rebound, no hepatosplenomegaly, no masses. EXTREMITIES: 2+ pulses, warm, well-perfused, no edema. NEUROLOGICAL: Cranial nerves II through XII grossly intact. Normal speech, gait not observed. PSYCH: Normal mood, normal affect. SKIN: Warm, dry, normal turgor, no rashes or lesions noted CBCD WBC 8.3 K/mm3 (4.0-10.0) 11/29/18 06:43 RBC 3.50 M/mm3 (3.60-5.2) L 11/29/18 06:43 Hgb 10.4 GM/dL (10.7-15.3) L 11/29/18 06:43 Hct 31.0 % (32.4-45.2) L 11/29/18 06:43 MCV 88.5 fl (80-96) 11/29/18 06:43 MCHC 33.6 g/dl (32.0-36.0) 11/29/18 06:43 RDW 12.3 % (11.6-15.6) 11/29/18 06:43 Plt Count 239 K/MM3 (134-434) 11/29/18 06:43 MPV 7.9 fl (7.5-11.1) 11/29/18 06:43 CMP Sodium 142 mmol/L (136-145) 11/29/18 06:43 Potassium 3.8 mmol/L (3.5-5.1) 11/29/18 06:43 Chloride 108 mmol/L (98-107) H 11/29/18 06:43 Carbon Dioxide 29 mmol/L (21-32) 11/29/18 06:43 Anion Gap 4 MMOL/L (8-16) L 11/29/18 06:43 BUN 18.8 mg/dL (7-18) H 11/29/18 06:43 Creatinine 1.0 mg/dL (0.55-1.3) 11/29/18 06:43 Random Glucose 87 mg/dL (74-106) 11/29/18 06:43 Calcium 9.2 mg/dL (8.5-10.1) 11/29/18 06:43 Total Bilirubin 0.7 mg/dL (0.2-1) 11/29/18 06:43 AST 43 U/L (15-37) H 11/29/18 06:43 ALT 36 U/L (13-61) 11/29/18 06:43 Alkaline Phosphatase 73 U/L (45-117) 11/29/18 06:43 Total Protein 6.2 g/dl (6.4-8.2) L 11/29/18 06:43 Albumin 2.9 g/dl (3.4-5.0) L 11/29/18 06:43 CARDIAC ENZYMES Creatine Kinase 871 U/L (26-192) H 11/28/18 02:41 Troponin I < 0.02 ng/ml (0.00-0.05) 11/28/18 02:41 Current Medications Generic Name Dose Route Start Last Admin Trade Name Freq PRN Reason Stop Dose Admin Atenolol 50 mg 11/29/18 10:00 11/29/18 09:50 Tenormin - PO Not Given DAILY [facility] Gabapentin 300 mg 11/29/18 22:00 Neurontin - PO HS [facility] Heparin Sodium (Porcine) 5,000 unit 11/28/18 22:00 11/29/18 15:14 Heparin - SQ 5,000 unit TID KITA Administration Dextrose/Lactated Ringer's 1,000 mls @ 100 mls/hr 11/28/18 17:36 11/28/18 22: 24 D5-Lr - IV 100 mls/hr ASDIR KITA Administration Losartan Potassium 100 mg 11/29/18 13:49 Cozaar - PO DAILY [facility] Home Medications Medication Instructions Recorded Atorvastatin Ca [Lipitor] 20 mg PO HS 12/30/15 Buspirone HCl [Buspar -] 10 mg PO DAILY 12/30/15 Omeprazole 40 mg PO DAILY 01/27/16 Cyclobenzaprine HCl 10 mg PO BID 11/27/18 Losartan 50Mg/Hctz 12.5MG [Hyzaar 1 tab PO DAILY 11/27/18 -] Pramipexole Dihydrochloride 0.25 mg PO HS 11/27/18 [Mirapex -] CXR shows elevation of right hemidiaphragm and no gross infiltrates C-spine CT showed "Multilevel degenerative disc and facet joint changes with moderate to marked C5-6 central canal stenosis and multilevel bilateral foraminal stenosis noncontrast head CT: negative Doppler LE: No DVT EKG shows NSR with no significant ST-T wave changes. ASSESSMENT AND PLAN: Patient is a 78 year old woman with a PMHx of Migraines, HTN, Borderline DM, HLD , Anxiety, Diverticular GI bleeding, Hypothyroidsm and Partial left nephrectomy who presents to the ER for evaluation of AMS for 3 hours. This is a patient of who is notified will see the patient. # AMS due to metabolic encephalopahy presented with hallucinations with unclear etiology. improved now. on Thiamine IV as per # HTN: continue atenolol and losartan as per her neurologist , discussed with . # R renal mass s/p nephrectomy DVT ppx- SCD. Dysphagia screen : passed by the nurse documented.
[2018-11-29] MEDS: THIAMINE HCL 200 MG/2 ML VIAL IVPB SCH (21:03)
[2018-11-29] MEDS: GABAPENTIN 300 MG CAPSULE (FP) PO SCH (21:03)
[2018-11-30] MEDS: DEXTROSE 5%-LACTATED RINGERS 1,000 ML IV SCH (01:50)
[2018-11-30] MEDS: THIAMINE HCL 200 MG/2 ML VIAL IVPB SCH ×3 (05:05→20:50)
[2018-11-30] MEDS: HEPARIN NA (PORCINE) 5,000 UNITS/ML 1ML VIAL SQ SCH ×3 (05:48→20:59)
[2018-11-30 08:55] LABS: BASO % 0.4 % (0-2.0); EOS % 1.3 % (0-4.5); HEMATOCRIT 31.1 % (32.4-45.2); HEMOGLOBIN 10.6 GM/dL (10.7-15.3); LYMPH % 13.1 % (8-40); MEAN CELL VOLUME 88.4 fl (80-96); MEAN PLT VOLUME 7.8 fl (7.5-11.1); MONO % 5.2 % (3.8-10.2); PLATELET COUNT 240 K/MM3 (134-434); RBC 3.52 M/mm3 (3.60-5.2); RDW 12.5 % (11.6-15.6)
[2018-11-30 09:44] LABS: BLOOD UREA NITROGEN 16.8 mg/dL (7-18); CALCIUM 8.5 mg/dL (8.5-10.1); CREATININE 1.1 mg/dL (0.55-1.3); POTASSIUM 3.7 mmol/L (3.5-5.1)
[2018-11-30] MEDS ORDERED: PT OWN MED DRAWER 7, Y5N ONE (09:47)
[2018-11-30] MEDS: ATENOLOL 50 MG TABLET (FP) PO SCH (10:14)
[2018-11-30] MEDS: LOSARTAN POTASSIUM 50 MG TABLET (FP) PO SCH (10:14)
--- NOTE | 2018-11-30 11:07 | PN ---
Progress Note (short form) - Note Progress Note: Patient is feeling better with no acute distress. Vital Signs Temperature 98 F 11/30/18 05:49 Pulse Rate 80 11/30/18 05:49 Respiratory Rate 20 11/30/18 05:49 Blood Pressure 142/89 11/30/18 05:49 O2 Sat by Pulse Oximetry (%) 98 11/29/18 21:00 GENERAL: The patient is awake, alert, and fully oriented, in no acute distress. HEAD: Normal with no signs of trauma. EYES: PERRL, extraocular movements intact, sclera anicteric, conjunctiva clear. ENT: Ears normal, oropharynx clear without exudates, moist mucous membranes. NECK: Trachea midline, full range of motion, supple. LUNGS: Breath sounds equal, clear to auscultation bilaterally, no wheezes, no crackles, no accessory muscle use. HEART: Regular rate and rhythm, S1, S2 without murmur, rub or gallop. ABDOMEN: Soft, nontender, nondistended, normoactive bowel sounds, no guarding, no rebound, no hepatosplenomegaly, no masses. EXTREMITIES: 2+ pulses, warm, well-perfused, no edema. NEUROLOGICAL: Cranial nerves II through XII grossly intact. Normal speech, gait not observed. PSYCH: Normal mood, normal affect. SKIN: Warm, dry, normal turgor, no rashes or lesions noted CBCD WBC 10.0 K/mm3 (4.0-10.0) 11/30/18 08:28 RBC 3.52 M/mm3 (3.60-5.2) L 11/30/18 08:28 Hgb 10.6 GM/dL (10.7-15.3) L 11/30/18 08:28 Hct 31.1 % (32.4-45.2) L 11/30/18 08:28 MCV 88.4 fl (80-96) 11/30/18 08:28 MCHC 34.0 g/dl (32.0-36.0) 11/30/18 08:28 RDW 12.5 % (11.6-15.6) 11/30/18 08:28 Plt Count 240 K/MM3 (134-434) 11/30/18 08:28 MPV 7.8 fl (7.5-11.1) 11/30/18 08:28 CMP Sodium 144 mmol/L (136-145) 11/30/18 08:28 Potassium 3.7 mmol/L (3.5-5.1) 11/30/18 08:28 Chloride 109 mmol/L (98-107) H 11/30/18 08:28 Carbon Dioxide 28 mmol/L (21-32) 11/30/18 08:28 Anion Gap 6 MMOL/L (8-16) L 11/30/18 08:28 BUN 16.8 mg/dL (7-18) 11/30/18 08:28 Creatinine 1.1 mg/dL (0.55-1.3) 11/30/18 08:28 Random Glucose 117 mg/dL (74-106) H 11/30/18 08:28 Calcium 8.5 mg/dL (8.5-10.1) 11/30/18 08:28 Total Bilirubin 0.7 mg/dL (0.2-1) 11/29/18 06:43 AST 43 U/L (15-37) H 11/29/18 06:43 ALT 36 U/L (13-61) 11/29/18 06:43 Alkaline Phosphatase 73 U/L (45-117) 11/29/18 06:43 Total Protein 6.2 g/dl (6.4-8.2) L 11/29/18 06:43 Albumin 2.9 g/dl (3.4-5.0) L 11/29/18 06:43 CARDIAC ENZYMES Creatine Kinase 871 U/L (26-192) H 11/28/18 02:41 Troponin I < 0.02 ng/ml (0.00-0.05) 11/28/18 02:41 Current Medications Generic Name Dose Route Start Last Admin Trade Name Freq PRN Reason Stop Dose Admin Atenolol 50 mg 11/29/18 10:00 11/30/18 10:14 Tenormin - PO 50 mg DAILY KITA Administration Gabapentin 300 mg 11/29/18 22:00 11/29/18 21:03 Neurontin - PO 300 mg HS KITA Administration Heparin Sodium (Porcine) 5,000 unit 11/28/18 22:00 11/30/18 05:48 Heparin - SQ 5,000 unit TID KITA Administration Dextrose/Lactated Ringer's 1,000 mls @ 100 mls/hr 10/10/19 17:36 11/30/18 01: 50 D5-Lr - IV 100 mls/hr ASDIR KITA Administration Losartan Potassium 100 mg 11/29/18 13:49 11/30/18 10:14 Cozaar - PO 100 mg DAILY KITA Administration Thiamine HCl 250 mg 11/29/18 20:15 11/30/18 05:05 Vitamin B1 Injection - IVPB 12/02/18 20:14 250 mg Q8H KITA Administration Current Medications Generic Name Dose Route Start Last Admin Trade Name Judahq PRN Reason Stop Dose Admin Atenolol 50 mg 11/29/18 10:00 11/30/18 10:14 Tenormin - PO 50 mg DAILY KITA Administration Gabapentin 300 mg 11/29/18 22:00 11/29/18 21:03 Neurontin - PO 300 mg HS KITA Administration Heparin Sodium (Porcine) 5,000 unit 11/28/18 22:00 11/30/18 05:48 Heparin - SQ 5,000 unit TID KITA Administration Dextrose/Lactated Ringer's 1,000 mls @ 100 mls/hr 11/28/18 17:36 11/30/18 01: 50 D5-Lr - IV 100 mls/hr ASDIR KITA Administration Losartan Potassium 100 mg 11/29/18 13:49 11/30/18 10:14 Cozaar - PO 100 mg DAILY KITA Administration Thiamine HCl 250 mg 11/29/18 20:15 11/30/18 05:05 Vitamin B1 Injection - IVPB 12/02/18 20:14 250 mg Q8H KITA Administration Home Medications Medication Instructions Recorded Atorvastatin Ca [Lipitor] 20 mg PO HS 12/30/15 Buspirone HCl [Buspar -] 10 mg PO DAILY 12/30/15 Omeprazole 40 mg PO DAILY 01/27/16 Cyclobenzaprine HCl 10 mg PO BID 11/27/18 Losartan 50Mg/Hctz 12.5MG [Hyzaar 1 tab PO DAILY 11/27/18 -] Pramipexole Dihydrochloride 0.25 mg PO HS 11/27/18 [Mirapex -] CXR shows elevation of right hemidiaphragm and no gross infiltrates C-spine CT showed "Multilevel degenerative disc and facet joint changes with moderate to marked C5-6 central canal stenosis and multilevel bilateral foraminal stenosis noncontrast head CT: negative Doppler LE: No DVT EKG shows NSR with no significant ST-T wave changes. ASSESSMENT AND PLAN: Patient is a 78 year old woman with a PMHx of Migraines, HTN, Borderline DM, HLD , Anxiety, Diverticular GI bleeding, Hypothyroidsm and Partial left nephrectomy who presents to the ER for evaluation of AMS for 3 hours. # AMS due to metabolic encephalopahy presented with hallucinations with unclear etiology . improved now, no further hallucination. # HTN:controlled : continue atenolol and losartan as per her neurologist . # R renal mass s/p nephrectomy DVT ppx- SCD. Dysphagia screen : Passed by the nurse documented in ED. This is a patient of who is notified will see the patient. home vs rehab. Visit type - Emergency Visit Emergency Visit: Yes ED Registration Date: 11/27/18 Care time: The patient presented to the Emergency Department on the above date and was hospitalized for further evaluation of their emergent condition. - New Patient This patient is new to me today: No - Critical Care Critical Care patient: No - Discharge Referral Referred to [facility] Med P.C.: No
[2018-11-30] MEDS ORDERED: ATENOLOL 50 MG TABLET (FP) PO ONE (14:22)
[2018-11-30] MEDS: GABAPENTIN 300 MG CAPSULE (FP) PO SCH (20:59)
[2018-12-01] MEDS: HEPARIN NA (PORCINE) 5,000 UNITS/ML 1ML VIAL SQ SCH ×3 (07:00→22:21)
[2018-12-01] MEDS: THIAMINE HCL 200 MG/2 ML VIAL IVPB SCH ×3 (08:15→22:21)
[2018-12-01] MEDS: LOSARTAN POTASSIUM 50 MG TABLET (FP) PO SCH (09:22)
[2018-12-01] MEDS: ATENOLOL 50 MG TABLET (FP) PO SCH (09:22)
--- NOTE | 2018-12-01 10:03 | PN ---
Progress Note (short form) - Note Progress Note: Patient is comfortable with no acute distress. Vital Signs Temperature 98.5 F 12/01/18 06:00 Pulse Rate 66 12/01/18 06:00 Respiratory Rate 18 12/01/18 08:38 Blood Pressure 164/87 12/01/18 06:00 O2 Sat by Pulse Oximetry (%) 98 12/01/18 08:38 GENERAL: The patient is awake, alert, and fully oriented, in no acute distress. HEAD: Normal with no signs of trauma. EYES: PERRL, extraocular movements intact, sclera anicteric, conjunctiva clear. ENT: Ears normal, oropharynx clear without exudates, moist mucous membranes. NECK: Trachea midline, full range of motion, supple. LUNGS: Breath sounds equal, clear to auscultation bilaterally, no wheezes, no crackles, no accessory muscle use. HEART: Regular rate and rhythm, S1, S2 without murmur, rub or gallop. ABDOMEN: Soft, nontender, nondistended, normoactive bowel sounds, no guarding, no rebound, no hepatosplenomegaly, no masses. EXTREMITIES: 2+ pulses, warm, well-perfused, no edema. NEUROLOGICAL: Cranial nerves II through XII grossly intact. Normal speech, gait not observed. PSYCH: Normal mood, normal affect. SKIN: Warm, dry, normal turgor, no rashes or lesions noted CBCD WBC 10.0 K/mm3 (4.0-10.0) 11/30/18 08:28 RBC 3.52 M/mm3 (3.60-5.2) L 11/30/18 08:28 Hgb 10.6 GM/dL (10.7-15.3) L 11/30/18 08:28 Hct 31.1 % (32.4-45.2) L 11/30/18 08:28 MCV 88.4 fl (80-96) 11/30/18 08:28 MCHC 34.0 g/dl (32.0-36.0) 11/30/18 08:28 RDW 12.5 % (11.6-15.6) 11/30/18 08:28 Plt Count 240 K/MM3 (134-434) 11/30/18 08:28 MPV 7.8 fl (7.5-11.1) 11/30/18 08:28 CMP Sodium 144 mmol/L (136-145) 11/30/18 08:28 Potassium 3.7 mmol/L (3.5-5.1) 11/30/18 08:28 Chloride 109 mmol/L (98-107) H 11/30/18 08:28 Carbon Dioxide 28 mmol/L (21-32) 11/30/18 08:28 Anion Gap 6 MMOL/L (8-16) L 11/30/18 08:28 BUN 16.8 mg/dL (7-18) 11/30/18 08:28 Creatinine 1.1 mg/dL (0.55-1.3) 11/30/18 08:28 Random Glucose 117 mg/dL (74-106) H 11/30/18 08:28 Calcium 8.5 mg/dL (8.5-10.1) 11/30/18 08:28 Total Bilirubin 0.7 mg/dL (0.2-1) 11/29/18 06:43 AST 43 U/L (15-37) H 11/29/18 06:43 ALT 36 U/L (13-61) 11/29/18 06:43 Alkaline Phosphatase 73 U/L (45-117) 11/29/18 06:43 Total Protein 6.2 g/dl (6.4-8.2) L 11/29/18 06:43 Albumin 2.9 g/dl (3.4-5.0) L 11/29/18 06:43 CARDIAC ENZYMES Creatine Kinase 871 U/L (26-192) H 11/28/18 02:41 Troponin I < 0.02 ng/ml (0.00-0.05) 11/28/18 02:41 Current Medications Generic Name Dose Route Start Last Admin Trade Name Freq PRN Reason Stop Dose Admin Atenolol 100 mg 12/01/18 10:00 12/01/18 09:22 Tenormin - PO 100 mg DAILY KITA Administration Gabapentin 300 mg 11/29/18 22:00 11/30/18 20:59 Neurontin - PO 300 mg HS KITA Administration Heparin Sodium (Porcine) 5,000 unit 11/28/18 22:00 12/01/18 07:00 Heparin - SQ 5,000 unit TID KITA Administration Losartan Potassium 100 mg 11/29/18 13:49 12/01/18 09:22 Cozaar - PO 100 mg DAILY KITA Administration Thiamine HCl 250 mg 11/29/18 20:15 12/01/18 08:15 Vitamin B1 Injection - IVPB 12/02/18 20:14 250 mg Q8H KITA Administration Home Medications Medication Instructions Recorded Atorvastatin Ca [Lipitor] 20 mg PO HS 12/30/15 Buspirone HCl [Buspar -] 10 mg PO DAILY 12/30/15 Omeprazole 40 mg PO DAILY 01/27/16 Cyclobenzaprine HCl 10 mg PO BID 11/27/18 Losartan 50Mg/Hctz 12.5MG [Hyzaar 1 tab PO DAILY 11/27/18 -] Pramipexole Dihydrochloride 0.25 mg PO HS 11/27/18 [Mirapex -] CXR shows elevation of right hemidiaphragm and no gross infiltrates C-spine CT showed "Multilevel degenerative disc and facet joint changes with moderate to marked C5-6 central canal stenosis and multilevel bilateral foraminal stenosis noncontrast head CT: negative Doppler LE: No DVT EKG shows NSR with no significant ST-T wave changes. ASSESSMENT AND PLAN: Patient is a 78 year old woman with a PMHx of Migraines, HTN, Borderline DM, HLD , Anxiety, Diverticular GI bleeding, Hypothyroidsm and Partial left nephrectomy who presents to the ER for evaluation of AMS for 3 hours. # AMS due to metabolic encephalopahy presented with hallucinations with unclear etiology . improved now, no further hallucination. # HTN:Uncontrolled increased Losartan to 100mg , on atenolol increased 100mg continue , her neurologist . # R renal mass s/p nephrectomy DVT ppx: SCD. Dysphagia screen : Passed by the nurse documented in ED. home vs rehab.in am Visit type - Emergency Visit Emergency Visit: Yes ED Registration Date: 11/27/18 Care time: The patient presented to the Emergency Department on the above date and was hospitalized for further evaluation of their emergent condition. - New Patient This patient is new to me today: No - Critical Care Critical Care patient: No - Discharge Referral Referred to [facility] Med P.C.: No
[2018-12-01] MEDS: GABAPENTIN 300 MG CAPSULE (FP) PO SCH (22:22)
[2018-12-02 05:57] VITALS: TEMP 99.5
[2018-12-02] MEDS: THIAMINE HCL 200 MG/2 ML VIAL IVPB SCH (05:59)
[2018-12-02] MEDS: HEPARIN NA (PORCINE) 5,000 UNITS/ML 1ML VIAL SQ SCH (06:00)
[2018-12-02 08:05] VITALS: BP 146/77; PULSE 71
--- NOTE | 2018-12-02 08:37 | PN ---
Teaching Attending Note Name of Resident: Luiza Huynh ATTENDING PHYSICIAN STATEMENT I saw and evaluated the patient. I reviewed the resident's note and discussed the case with the resident. I agree with the resident's findings and plan as documented. SUBJECTIVE: Patient is feeling well with no acute distress. no nausea or vomiting. c/o that she feels weak. OBJECTIVE: Vital Signs Temperature 99.5 F 12/02/18 05:55 Pulse Rate 71 12/02/18 08:04 Respiratory Rate 18 12/02/18 08:04 Blood Pressure 146/77 12/02/18 08:04 O2 Sat by Pulse Oximetry (%) 99 12/01/18 21:00 GENERAL: The patient is awake, alert, and fully oriented, in no acute distress. HEAD: Normal with no signs of trauma. EYES: PERRL, extraocular movements intact, sclera anicteric, conjunctiva clear. ENT: Ears normal, oropharynx clear without exudates, moist mucous membranes. NECK: Trachea midline, full range of motion, supple. LUNGS: Breath sounds equal, clear to auscultation bilaterally, no wheezes, no crackles, no accessory muscle use. HEART: Regular rate and rhythm, S1, S2 without murmur, rub or gallop. ABDOMEN: Soft, nontender, nondistended, normoactive bowel sounds, no guarding, no rebound, no hepatosplenomegaly, no masses. EXTREMITIES: 2+ pulses, warm, well-perfused, no edema. feels weak on her feet. NEUROLOGICAL: Cranial nerves II through XII grossly intact. Normal speech, gait not observed. PSYCH: Normal mood, normal affect. SKIN: Warm, dry, normal turgor, no rashes or lesions noted CBCD WBC 10.0 K/mm3 (4.0-10.0) 11/30/18 08:28 RBC 3.52 M/mm3 (3.60-5.2) L 11/30/18 08:28 Hgb 10.6 GM/dL (10.7-15.3) L 11/30/18 08:28 Hct 31.1 % (32.4-45.2) L 11/30/18 08:28 MCV 88.4 fl (80-96) 11/30/18 08:28 MCHC 34.0 g/dl (32.0-36.0) 11/30/18 08:28 RDW 12.5 % (11.6-15.6) 11/30/18 08:28 Plt Count 240 K/MM3 (134-434) 11/30/18 08:28 MPV 7.8 fl (7.5-11.1) 11/30/18 08:28 CMP Sodium 144 mmol/L (136-145) 11/30/18 08:28 Potassium 3.7 mmol/L (3.5-5.1) 11/30/18 08:28 Chloride 109 mmol/L (98-107) H 11/30/18 08:28 Carbon Dioxide 28 mmol/L (21-32) 11/30/18 08:28 Anion Gap 6 MMOL/L (8-16) L 11/30/18 08:28 BUN 16.8 mg/dL (7-18) 11/30/18 08:28 Creatinine 1.1 mg/dL (0.55-1.3) 11/30/18 08:28 Random Glucose 117 mg/dL (74-106) H 11/30/18 08:28 Calcium 8.5 mg/dL (8.5-10.1) 11/30/18 08:28 Total Bilirubin 0.7 mg/dL (0.2-1) 11/29/18 06:43 AST 43 U/L (15-37) H 11/29/18 06:43 ALT 36 U/L (13-61) 11/29/18 06:43 Alkaline Phosphatase 73 U/L (45-117) 11/29/18 06:43 Total Protein 6.2 g/dl (6.4-8.2) L 11/29/18 06:43 Albumin 2.9 g/dl (3.4-5.0) L 11/29/18 06:43 CARDIAC ENZYMES Creatine Kinase 871 U/L (26-192) H 11/28/18 02:41 Troponin I < 0.02 ng/ml (0.00-0.05) 11/28/18 02:41 Current Medications Generic Name Dose Route Start Last Admin Trade Name Freq PRN Reason Stop Dose Admin Atenolol 100 mg 12/01/18 10:00 12/01/18 09:22 Tenormin - PO 100 mg DAILY KITA Administration Gabapentin 300 mg 11/29/18 22:00 12/01/18 22:22 Neurontin - PO 300 mg HS KITA Administration Heparin Sodium (Porcine) 5,000 unit 11/28/18 22:00 12/02/18 06:00 Heparin - SQ 5,000 unit TID KITA Administration Losartan Potassium 100 mg 11/29/18 13:49 12/01/18 09:22 Cozaar - PO 100 mg DAILY KITA Administration Thiamine HCl 250 mg 11/29/18 20:15 12/02/18 05:59 Vitamin B1 Injection - IVPB 12/02/18 20:14 250 mg Q8H KITA Administration Home Medications Medication Instructions Recorded Atorvastatin Ca [Lipitor] 20 mg PO HS 12/30/15 Buspirone HCl [Buspar -] 10 mg PO DAILY 12/30/15 Omeprazole 40 mg PO DAILY 01/27/16 Cyclobenzaprine HCl 10 mg PO BID 11/27/18 Losartan 50Mg/Hctz 12.5MG [Hyzaar 1 tab PO DAILY 11/27/18 -] Pramipexole Dihydrochloride 0.25 mg PO HS 11/27/18 [Mirapex -] Home Medications Medication Instructions Recorded Atorvastatin Ca [Lipitor] 20 mg PO HS 12/30/15 Buspirone HCl [Buspar -] 10 mg PO DAILY 12/30/15 Omeprazole 40 mg PO DAILY 01/27/16 Atenolol [Tenormin -] 100 mg PO DAILY tablet 12/02/18 Gabapentin [Neurontin -] 300 mg PO HS capsule 12/02/18 Heparin - 5,000 unit SQ TID vial 12/02/18 Losartan Potassium [Cozaar -] 100 mg PO DAILY tablet 12/02/18 CXR shows elevation of right hemidiaphragm and no gross infiltrates C-spine CT showed "Multilevel degenerative disc and facet joint changes with moderate to marked C5-6 central canal stenosis and multilevel bilateral foraminal stenosis noncontrast head CT: negative Doppler LE: No DVT EKG shows NSR with no significant ST-T wave changes. ASSESSMENT AND PLAN: Patient is a 78 year old woman with a PMHx of Migraines, HTN, Borderline DM, HLD , Anxiety, Diverticular GI bleeding, Hypothyroidsm and Partial left nephrectomy who presents to the ER for evaluation of AMS for 3 hours. # AMS due to metabolic encephalopahy presented with hallucinations with unclear etiology . improved now, no further hallucination. Patient is being discharged to rehab. # HTN:better controlled on increased Losartan to 100mg ,on atenolol increased 100mg continue , follow up with the neurologist . # R renal mass s/p nephrectomy. DVT ppx: SCD. Dysphagia screen : Passed by the nurse documented in ED. Patient is going to rehab. Discontinued losartan/hctz discontinued pramipexole Discontinued flexeril
[2018-12-02] MEDS: ATENOLOL 50 MG TABLET (FP) PO SCH (09:40)
[2018-12-02] MEDS: LOSARTAN POTASSIUM 50 MG TABLET (FP) PO SCH (09:40)
--- NOTE | 2018-12-02 16:27 | DS ---
Physical Exam: SUBJECTIVE: Patient seen and examined. Pt alet and offered no acute complaints. OBJECTIVE: Vital Signs Period Temp Pulse Resp BP Sys/Sylvester Pulse Ox Last 24 Hr 97.8 F-99.6 F 71-84 18-20 136-168/76-83 99 PHYSICAL EXAM GENERAL: The patient is awake, alert, and fully oriented, in no acute distress. HEAD: Normal with no signs of trauma. EYES: PERRL, extraocular movements intact, sclera anicteric, conjunctiva clear. No ptosis. ENT: Ears normal, nares patent, oropharynx clear without exudates, moist mucous membranes. NECK: Trachea midline, full range of motion, supple. LUNGS: Breath sounds equal, clear to auscultation bilaterally, no wheezes, no crackles, no accessory muscle use. HEART: Regular rate and rhythm, S1, S2 without murmur, rub or gallop. ABDOMEN: Soft, nontender, nondistended, normoactive bowel sounds, no guarding, no rebound, no hepatosplenomegaly, no masses. EXTREMITIES: 2+ pulses, warm, well-perfused, no edema. NEUROLOGICAL: Cranial nerves II through XII grossly intact. Normal speech, gait not observed. strength 5/5 in all extremities and sensation intact. rigidity improved in the LEs PSYCH: Normal mood, normal affect. LABS Laboratory Results - last 24 hr 12/02/18 06:13 POC Glucometer 91 CBC,CMP WBC 10.0 K/mm3 (4.0-10.0) 11/30/18 08:28 RBC 3.52 M/mm3 (3.60-5.2) L 11/30/18 08:28 Hgb 10.6 GM/dL (10.7-15.3) L 11/30/18 08:28 Hct 31.1 % (32.4-45.2) L 11/30/18 08:28 MCV 88.4 fl (80-96) 11/30/18 08:28 MCH 30.0 pg (25.7-33.7) 11/30/18 08:28 MCHC 34.0 g/dl (32.0-36.0) 11/30/18 08:28 RDW 12.5 % (11.6-15.6) 11/30/18 08:28 Plt Count 240 K/MM3 (134-434) 11/30/18 08:28 MPV 7.8 fl (7.5-11.1) 11/30/18 08:28 Absolute Neuts (auto) 8.0 K/mm3 (1.5-8.0) 11/30/18 08:28 Neutrophils % 80.0 % (42.8-82.8) 11/30/18 08:28 Lymphocytes % 13.1 % (8-40) 11/30/18 08:28 Monocytes % 5.2 % (3.8-10.2) 11/30/18 08:28 Eosinophils % 1.3 % (0-4.5) 11/30/18 08:28 Basophils % 0.4 % (0-2.0) 11/30/18 08:28 Nucleated RBC % 0 % (0-0) 11/30/18 08:28 Sodium 144 mmol/L (136-145) 11/30/18 08:28 Potassium 3.7 mmol/L (3.5-5.1) 11/30/18 08:28 Chloride 109 mmol/L (98-107) H 11/30/18 08:28 Carbon Dioxide 28 mmol/L (21-32) 11/30/18 08:28 Anion Gap 6 MMOL/L (8-16) L 11/30/18 08:28 BUN 16.8 mg/dL (7-18) 11/30/18 08:28 Creatinine 1.1 mg/dL (0.55-1.3) 11/30/18 08:28 Est GFR (CKD-EPI)AfAm 56.48 11/30/18 08:28 Est GFR (CKD-EPI)NonAf 48.73 11/30/18 08:28 POC Glucometer 91 UNITS (80-120) 12/02/18 06:13 Random Glucose 117 mg/dL (74-106) H 11/30/18 08:28 Hemoglobin A1c % 5.3 % (4.2-6.3) 11/28/18 03:30 Lactic Acid 0.9 mmol/L (0.4-2.0) 11/28/18 03:30 Calcium 8.5 mg/dL (8.5-10.1) 11/30/18 08:28 Phosphorus 3.1 mg/dL (2.5-4.9) 11/29/18 06:43 Magnesium 1.7 mg/dL (1.8-2.4) L 11/29/18 06:43 Iron 33 ug/dL (50-175) L 11/30/18 08:28 TIBC 193 ug/dL (250-450) L 11/30/18 08:28 Iron Saturation 17 % (17.5-39) L 11/30/18 08:28 Unsaturated IBC 160 ug/dL (200-275) L 11/30/18 08:28 Ferritin 238.9 ng/ml (8-388) 11/30/18 08:28 Total Bilirubin 0.7 mg/dL (0.2-1) 11/29/18 06:43 AST 43 U/L (15-37) H 11/29/18 06:43 ALT 36 U/L (13-61) 11/29/18 06:43 Alkaline Phosphatase 73 U/L (45-117) 11/29/18 06:43 Creatine Kinase 871 U/L (26-192) H 11/28/18 02:41 Creatine Kinase Index 0.8 % (0.0-5.0) 11/28/18 02:41 CK-MB (CK-2) 7.8 ng/mL (0.5-3.6) H 11/28/18 02:41 Troponin I < 0.02 ng/ml (0.00-0.05) 11/28/18 02:41 Total Protein 6.2 g/dl (6.4-8.2) L 11/29/18 06:43 Albumin 2.9 g/dl (3.4-5.0) L 11/29/18 06:43 Lipase 140 U/L (73-393) 11/27/18 17:41 Vitamin B12 Cancelled 11/28/18 03:30 Serum Folate Cancelled 11/28/18 03:30 TSH 1.89 uIU/ml (0.358-3.74) 11/28/18 02:41 CT head - no acute pathology. Mild to moderate periventricular chronic microvascular ischemic changes are noted. CT cervical spine - no fractures seen. multilevel bilateral foraminal stenosis. moderate to marked C5-C6 central canal stenosis CXR - negative for acute pathology U/S lower extremity - no DVT in either leg HOSPITAL COURSE: Date of Admission:11/27/18 78 y/o/f with PMHx of HTN, HLD, borderline DM, anxiety here for new onset visual hallucinations today. Patient was admitted for concerned of acute encephalopathy since patient was verbal at baseline but was stuporous and unresponsive to physical and verbal stimuli during interview.head ct no acute pathology. MRI of brain (C-) reviewed: Scattered, chronic diffuse supratentorial , periventricular ischemic changes. Midline cerebellar degeneration and atrophy.MRI of C spine and thoracic spine (C-): Mild DJD without cord compression. Infectious etiology was unlikely as patient was afebrile and had no white count. UA negative, ABG results normal,passed dysphagia screen, tropx negx2,HbA1C 5.3,Alcohol and acetominophen levels negative,Lactic acid 0.9, B12 977, folate 36, BMP WNL, CBC WNL, RPR nonreactive, TSH 1.41.However, Pt was found to be taking higher than prescribe dose of flexeril while pt was also taking pramipexole and buspirone. All meds were held and placed on Gabapentin 300mg HS by her neurologist Dr Solares and by morning pt had gone back to baseline; talking and AAOx3 with some residual rigidity in the LE. Most likely Cause of encephalopathy. BP was elevated in the 190s on multiple occasions. started on atenolol 50 mg daily and losartan 50mg then increased to 100mg daily of each. Iron studies sent as per Dr Solares for restless leg syndrome. pt had a small episode of rhabdo that resolved with fluids.Based on eval, Pt was discharged to rehab and to follow with neuro for further evaluation. Date of Discharge: 12/02/18 Minutes to complete discharge: 35 Discharge Summary Problems reviewed: Yes Reason For Visit: Altered Mental Status Condition: Good - Instructions Diet, Activity, Other Instructions: You came in for confusion and Right-sided weakness because of overdose on Flexeril and Pramiprexole. We imaged your head with CT Scan and MRI and found nothing immediately wrong. We imaged your Spine with CT Scan and found nothing immediately wrong. We discussed your case with your Neurologist Dr. Solares and we discontinued the Flexeril and Pramiprexole Please STOP taking Hyzaar instead you are taking Losartan 100mg daily Please STOP taking Pramiprexole Please STOP taking Flexeril We increased your Atenolol to 100mg ONCE a Day We have started you on Losartan 100mg ONCE a Day Please follow up with your Neurologist, Dr. Solares within 1 week. Please follow up with your Primary Care Physician, Dr. Walker within 1 week. Please return to the ED if you are having hallucinations, increased weakness, worsening headaches, chest pain, shortness of breath or any concerning symptoms. Referrals: Emile Solares MD [Staff Physician] - 1 Week Rosana Walker [Primary Care Provider] - 1 Week Disposition: LONG-TERM FACILITY - Home Medications Comprehensive Discharge Medication List: Ambulatory Orders Atorvastatin Ca [Lipitor] 20 mg PO HS 12/30/15 Buspirone HCl [Buspar -] 10 mg PO DAILY 12/30/15 Omeprazole 40 mg PO DAILY 01/27/16 Atenolol [Tenormin -] 100 mg PO DAILY tablet 12/02/18 Gabapentin [Neurontin -] 300 mg PO HS capsule 12/02/18 Heparin - 5,000 unit SQ TID vial 12/02/18 Losartan Potassium [Cozaar -] 100 mg PO DAILY tablet 12/02/18 Problem List - Problems (1) Acute metabolic encephalopathy Problems reviewed: Yes Code(s): G93.41 - METABOLIC ENCEPHALOPATHY (2) Diverticulosis Code(s): K57.90 - DVRTCLOS OF INTEST, PART UNSP, W/O PERF OR ABSCESS W/O BLEED Qualifiers: Diverticulosis site: unspecified location Diverticulosis bleeding: diverticulosis with bleeding Qualified Code(s): K57.91 - Diverticulosis of intestine, part unspecified, without perforation or abscess with bleeding (3) HLD (hyperlipidemia) Code(s): E78.5 - HYPERLIPIDEMIA, UNSPECIFIED (4) HTN (hypertension) Code(s): I10 - ESSENTIAL (PRIMARY) HYPERTENSION (5) Migraines Code(s): G43.909 - MIGRAINE, UNSP, NOT INTRACTABLE, WITHOUT STATUS MIGRAINOSUS (6) Vertigo Code(s): R42 - DIZZINESS AND GIDDINESS (7) Acute confusion Code(s): R41.0 - DISORIENTATION, UNSPECIFIED This patient is new to me today: No Emergency Visit: Yes ED Registration Date: 11/27/18 Care time: The patient presented to the Emergency Department on the above date and was hospitalized for further evaluation of their emergent condition. Critical Care patient: No - Discharge Referral Referred to [facility] No ATTENDING PHYSICIAN STATEMENT I saw and evaluated the patient. I reviewed the resident's note and discussed the case with the resident. I agree with the resident's findings and plan as documented. SUBJECTIVE: OBJECTIVE: ASSESSMENT AND PLAN:
== END 2018-12-02 11:47 | DRG 917 ==
LOC: JER 15:44 → JERBED 20:19 → JICU 11-28 06:47 → J4W 11-28 18:01
PROVIDERS: ADMIT Internal Medicine; ATTEND Internal Medicine
DX: T44.5X5A Adverse effect of predominantly beta-adrenoreceptor agonists, initial encounter (principal); G92 Toxic encephalopathy; M62.82 Rhabdomyolysis; R44.3 Hallucinations, unspecified; E66.3 Overweight; I10 Essential (primary) hypertension; E78.5 Hyperlipidemia, unspecified; G43.909 Migraine, unspecified, not intractable, without status migrainosus; G25.81 Restless legs syndrome; F41.9 Anxiety disorder, unspecified; E11.9 Type 2 diabetes mellitus without complications
CPT/HCPCS: 36415; 36600; 70450-TC; 70551-TC; 71045-TC-FY; 72125-TC; 72141-TC; 72146-TC; 80048; 80053; 80307; 81003; 82375; 82550; 82553; 82607; 82728; 82746; 82803; 82962; 83036; 83050; 83540; 83550; 83605; 83690; 83735; 84100; 84443; 84484; 85025; 85610; 85730; 86593; 87086; 93005; 93010; 93970-TC; 97116-GP; 97162-GP; 99284-25; J0131; J1644; J7030

== ENCOUNTER 2019-04-02 14:33 | Inpatient (IN) | payer OTHER, BC ==
--- NOTE | 2019-04-02 15:45 | PDOC ---
History of Present Illness - General Chief Complaint: Injury Stated Complaint: R/O HIP FX Time Seen by Provider: 04/02/19 15:44 - History of Present Illness Initial Comments: HPI: 78yo F with PMH of HTN, HLD, borderline diabetes, anxiety presenting with right hip pain. Patient states that early his afternoon, she was walking with her rollator when she realized she forgot her money for shopping and turned around towards her bedroom. She slipped on a quilt on the floor and fell onto her right side. Denies hitting her head. No loss of consciousness, nausea, or vomiting. No prodrome prior to fall: no weakness, dizziness, chest pain, or shortness of breath. Endorses 10/10 pain. Has not yet taken anything for pain. Not on anticoagulants. Does not follow with an orthopedist. Has baseline chills. No fevers. ROS: Constitutional: no fever, +chills HEENT: no throat pain, no dysphagia Cardiovascular: no chest pain, no palpitations Respiratory: no cough, no shortness of breath Gastrointestinal: no abdominal pain, no nausea Genitourinary: no dysuria, no hematuria Musculoskeletal: +R. leg pain, no L. leg pain Skin: no rash, no itching Neurologic: no headache, no weakness Psych: no agitation, no anxiety PE: General: Awake, alert, and fully oriented, in no acute distress Head: No signs of trauma Eyes: EOMI, sclera anicteric ENT: Moist mucus membranes Neck: Normal ROM, supple Lungs: Lungs clear, Normal breath sounds Cardio: Regular rhythm, S1 and S2 present Abdomen: Soft, nontender. No guarding, no rebound, no masses Extremities: Distal pulses present Right hip is tender to palpation, swollen; RLE is mildly shortened; no overlying wound or lesion SKIN: Warm, Dry, normal turgor Neurologic: Cranial nerves II through XII grossly intact. Normal speech Back: No midline tenderness, no step-offs/deformities/fluctuance ED Course/MDM: DDX including but not limited to fracture/break, dislocation, sprain, muscle spasm Labs, EKG, CXR Xray R. hip and pelvis Xray R. femur CT Head/cspine Morphine 04/02/19 15:45 EKG: rate 100, QTc 428, sinus 04/02/19 17:49 CBC WBC 14.5 K/mm3 (4.0-10.0) H 04/02/19 16:30 RBC 4.38 M/mm3 (3.60-5.2) 04/02/19 16:30 Hgb 13.2 GM/dL (10.7-15.3) 04/02/19 16:30 Hct 39.3 % (32.4-45.2) D 04/02/19 16:30 MCV 89.8 fl (80-96) 04/02/19 16:30 MCH 30.1 pg (25.7-33.7) 04/02/19 16:30 MCHC 33.5 g/dl (32.0-36.0) 04/02/19 16:30 RDW 12.9 % (11.6-15.6) 04/02/19 16:30 Plt Count 264 K/MM3 (134-434) 04/02/19 16:30 MPV 7.9 fl (7.5-11.1) 04/02/19 16:30 Absolute Neuts (auto) 13.1 K/mm3 (1.5-8.0) H 04/02/19 16:30 Neutrophils % 90.0 % (42.8-82.8) H 04/02/19 16:30 Lymphocytes % 5.6 % (8-40) L D 04/02/19 16:30 Monocytes % 4.2 % (3.8-10.2) 04/02/19 16:30 Eosinophils % 0.1 % (0-4.5) D 04/02/19 16:30 Basophils % 0.1 % (0-2.0) 04/02/19 16:30 Nucleated RBC % 0 % (0-0) 04/02/19 16:30 Leukocytosis CMP Sodium 139 mmol/L (136-145) 04/02/19 16:30 Potassium 4.3 mmol/L (3.5-5.1) 04/02/19 16:30 Chloride 105 mmol/L (98-107) 04/02/19 16:30 Carbon Dioxide 29 mmol/L (21-32) 04/02/19 16:30 Anion Gap 5 MMOL/L (8-16) L 04/02/19 16:30 BUN 27.7 mg/dL (7-18) H 04/02/19 16:30 Creatinine 1.4 mg/dL (0.55-1.3) H 04/02/19 16:30 Est GFR (CKD-EPI)AfAm 42.19 04/02/19 16:30 Est GFR (CKD-EPI)NonAf 36.41 04/02/19 16:30 Random Glucose 117 mg/dL (74-106) H 04/02/19 16:30 Calcium 10.2 mg/dL (8.5-10.1) H 04/02/19 16:30 Total Bilirubin 0.5 mg/dL (0.2-1) 04/02/19 16:30 AST 33 U/L (15-37) 04/02/19 16:30 ALT 30 U/L (13-61) 04/02/19 16:30 Alkaline Phosphatase 82 U/L (45-117) 04/02/19 16:30 Total Protein 7.9 g/dl (6.4-8.2) 04/02/19 16:30 Albumin 3.7 g/dl (3.4-5.0) 04/02/19 16:30 Electrolytes unremarkable Cr elevated, JACQUES as previous value was 1.1 in November 2018 No transaminitis R. hip with diplaced intertrochanteric fracture, my impression Spoke with Dr. Nolan who recommended NPO after midnight just in case a procedure is scheduled for tomorrow. Likely procedure on Sunday04/02/19 18:[address] Holguin who accepted patient for admission under himself. Requested that I order fluid bolus and ofirmev, in addition to the percocet already ordered. 04/02/19 18:29 CT Head as read by radiology: " EXAM#: TYPE/EXAM: RESULT: [id number] CT/HEAD CT WITHOUT CONTRAST Cranial CT without contrast Clinical information: status post fall No CT evidence of intracranial injury or calvarial fracture. There is no extra-axial fluid collection. No obvious mass lesion or infarct is noted. Note is again made of mild to moderate bilaterally symmetric cerebellar atrophy. Mild to moderate periventricular and subcortical microvascular ischemic gliosis is noted. There is no obstructive hydrocephalus. A partly empty sella turcica is noted which is usually of no clinical significance. Impression: No CT evidence of acute intracranial pathology. Bilateral cerebellar atrophy. Mild to moderate periventricular and subcortical chronic microvascular ischemic changes. No definite interval change is seen in comparison to a CT study of 11/27/2018. Reported By: Slick Angela MD 04/02/19 1840 " CT Cspine as read by radiology: " EXAM#: TYPE/EXAM: RESULT: [id number] CT/CERVICAL SPINE CT W/O CONTR Cervical spine CT without contrast Clinical information: status post fall Multiplanar imaging was performed. No fracture or posttraumatic malalignment is seen. Advanced multilevel degenerative disc and facet joint changes are noted including a chronic reversal of the cervical lordosis. Moderate to marked C5-C6 degenerative central canal stenosis is seen. The perivertebral soft tissues demonstrate no obvious pathology. No definite interval change is identified in comparison to a CT study of 11/27/2018. Impression: No fracture is identified. Additional comments as noted above. Reported By: Slick Angela MD 04/02/192012 " CXR as read by radiology: " EXAM#: TYPE/EXAM: RESULT: [id number] RAD/CHEST X-RAY PORTABLE* Chest: Fall. Pain. A single view the chest is been submitted. There are clear lungs, normal, normal jenniffer and slightly unfolded aorta. The lungs are clear. The angles are sharp. The soft tissues are intact. A gross fracture is not seen. There is no sign of pneumothorax, pleural fluid or atelectasis. If symptoms persist, further imaging may be of help. Since 11/27/2018 there is a better inspiration and no sign of an acute process. Impression: No acute chest pathology. Reported By: Kirk Bucio MD 04/02/19 681 " Xray hip and pelvis: " EXAM#: TYPE/EXAM: RESULT: [id number] RAD/HIP PELVIS-RIGHT Pelvis and right hip: Pain. An AP view of the pelvis and 2 views of the right hip reveal an acute right femoral neck fracture with no sign of a right femoral head dislocation. The left hip and pelvic bones are intact. The SI joints are patent. There are degenerative spine changes. Bilateral tubal ligation clips are noted. There are fibroid calcifications. There are pelvic phleboliths and a nonspecific bowel pattern. Impression: Acute left femoral neck fracture. Reported By: Kirk Bucio MD 04/02/191858 Xray femur- Right: "EXAM#: TYPE/EXAM: RESULT: [id number] RAD/FEMUR-RIGHT Right femur: Pain. 6 views of the right femur including an AP view of the pelvis reveal an acute fracture of the right femoral neck. The right femoral head is not dislocated. The mid and distal right femoral shaft appears intact. There are some degenerative right knee changes. The pelvic bones and left hip are intact. There appear to be bilateral tubal ligation clips. There are fibroid calcifications and pelvic phleboliths. There is retained stool and a scoliosis with degenerative changes. Correlation recommended Impression: Acute right femoral neck fracture. Reported By: Kirk Bucio MD 04/02/191857 " Past History - Past Medical History Allergies/Adverse Reactions: Allergies Allergy/AdvReac Type Severity Reaction Status Date / Time No Known Allergies Allergy Verified 04/02/19 15:03 Home Medications: Ambulatory Orders Atorvastatin Ca [Lipitor] 20 mg PO HS 12/30/15 Omeprazole 40 mg PO DAILY 01/27/16 Acetaminophen [Tylenol -] 500 mg PO Q6H PRN 04/02/19 Isoniazid 300 mg PO DAILY 04/02/19 Losartan/Hydrochlorothiazide [Hyzaar 100-12.5 Tablet] 1 each PO DAILY 04/02/19 Pyridoxine HCl (Vitamin B6) [Pyridoxine HCl] 50 mg PO DAILY 04/02/19 Anemia: No Asthma: No Cancer: No Cardiac Disorders: No CVA: No COPD: No CHF: No DVT: No Dementia: No Diabetes: Yes (boderline DM) GI Disorders: Yes (colonoscopy) Disorders: No HTN: Yes Hypercholesterolemia: Yes Liver Disease: No Seizures: No Thyroid Disease: No - Surgical History Abdominal Surgery: No Appendectomy: No Cardiac Surgery: No Cholecystectomy: No Lung Surgery: No Neurologic Surgery: No Orthopedic Surgery: No - Psycho Social/Smoking Cessation Hx Smoking History: Never smoked Have you smoked in the past 12 months: No Number of Cigarettes Smoked Daily: 2 If you are a former smoker, when did you quit?: 5 YR AGO Information on smoking cessation initiated: No Hx Alcohol Use: No Drug/Substance Use Hx: No Substance Use Type: None Hx Substance Use Treatment: No *Physical Exam - Vital Signs Last Vital Signs Temp Pulse Resp BP Pulse Ox 97.3 F L 106 H 19 156/80 93 L 04/02/19 15:03 04/02/19 15:03 04/02/19 15:03 04/02/19 14:35 04/02/19 15:03 ED Treatment Course - LABORATORY CBC & Chemistry Diagram: 04/02/19 16:30 04/02/19 16:30 Discharge - Discharge Information Problems reviewed: Yes Clinical Impression/Diagnosis: Closed right hip fracture Qualifiers: Encounter type: initial encounter Qualified Code(s): S72.001A - Fracture of unspecified part of neck of right femur, initial encounter for closed fracture Condition: Guarded - Admission Yes - Follow up/Referral - Patient Discharge Instructions - Post Discharge Activity
[2019-04-02] MEDS ORDERED: morphine CARPU-JECT 4 MG/1 ML DISP.SYRIN IVPUSH ONE (16:17)
[2019-04-02] MEDS ORDERED: morphine SULFATE 4 MG/ML VIAL ONE (16:21)
[2019-04-02 17:09] LABS: BASO % 0.1 % (0-2.0); EOS % 0.1 % (0-4.5); HEMATOCRIT 39.3 % (32.4-45.2); HEMOGLOBIN 13.2 GM/dL (10.7-15.3); LYMPH % 5.6 % (8-40); MCH 30.1 pg (25.7-33.7); MCHC 33.5 g/dl (32.0-36.0); MEAN CELL VOLUME 89.8 fl (80-96); MEAN PLT VOLUME 7.9 fl (7.5-11.1); MONO % 4.2 % (3.8-10.2); PLATELET COUNT 264 K/MM3 (134-434); RBC 4.38 M/mm3 (3.60-5.2); RDW 12.9 % (11.6-15.6); WHITE BLOOD COUNT 14.5 K/mm3 (4.0-10.0)
[2019-04-02 17:23] LABS: PROTHROMBIN TIME (PATIENT) 11.8 SEC (9.7-13.0)
--- NOTE | 2019-04-02 17:23 | PDOC ---
Documentation entered by Pascual oCnley SCRIBE, acting as scribe for Gail Oliveira DO. Gail Oliveira DO: This documentation has been prepared by the Yael whitman Nirvannie, SCRIBE, under my direction and personally reviewed by me in its entirety. I confirm that the documentation accurately reflects all work, treatment, procedures, and medical decision making performed by me. Attending Attestation - Resident Resident Name: OliviaJenn - ED Attending Attestation I have performed the following: I have examined & evaluated the patient, The case was reviewed & discussed with the resident, I agree w/resident's findings & plan, Exceptions are as noted - HPI HPI: 04/02/19 17:00 The patient is a 78 year old female, with a significant past medical history of HTN, HLD, borderline DM, and anxiety, who presents to the emergency department s /p fall with right hip pain. Patient notes to have been walking with her rollator at which time she realized she forgot her money and turned to the bathroom subsequently slipping on a quilt and falling onto her right side. She denies any loss of consciousness, head/neck trauma, chest pain, diaphoresis , or shortness of breath. Allergies: NKDA Primary Care Physician: Dr. Walker - Physicial Exam PE: 04/02/19 17:00 Constitutional: No external signs of trauma. Awake, alert, oriented. No acute distress. Head: Normocephalic. Atraumatic Eyes: PERRL. EOMI. Conjunctivae are not pale. ENT: Mucous membranes are moist and intact. Posterior pharynx without exudates or erythema. Uvula midline. Neck: Supple. Full ROM. No lymphadenopathy. Cardiovascular: Regular rate. Regular rhythm. S1, S2 regular. Distal pulses are 2+ and symmetric. Pulmonary/Chest: No evidence of respiratory distress. Clear to auscultation bilaterally No wheezing, rales or rhonchi. Abdominal: Soft and non-distended. There is no tenderness. No rebound, guarding or rigidity. No organomegaly. No palpable masses. Good bowel sounds. Back: No cervical, thoracic, or lumbar tenderness. No CVA tenderness. Musculoskeletal: +Right hip tenderness especially over the greater trochanter. Positive log roll. No edema. No cyanosis. No clubbing. No calf tenderness. Radial/pedal pulses are intact and 2+ bilaterally Skin: Skin is warm and dry. No petechiae. No purpura. Neurological: Alert and oriented to person, place, and time. Cranial nerves II -XII are grossly intact. Normal speech. Strength is grossly symmetric. No sensory deficits. Psychiatric: Good eye contact. Normal interaction, affect and behavior. - Medical Decision Making 04/02/19 17:21 a/p: 78yo female with a mechanical fall with her walker -denies head injury or loc -denies c/t/l spine ttp -denies cp/sob, abd pain -pt with R hip pain, shortened R leg, pulses intact, sensation intact -ttp over greater trochanter -concern for R hip fx -will send ct, labs, xrays, ekg -will monitor and reassess 04/02/19 18:08 pt with R intertrochanteric fx will place mcclendon pt wth millie, mildly elevated wbc will place mcclendon, ivf hydration, pain control, ua, ucx -pt will need admission -will [facility] for admission 04/02/19 18:[address] Nolan 04/02/19 18:17 resident discussed the case with Dr. Nolan 04/02/19 18:27 resident discussed the case with [facility] who accepts pt to service Heart Score/ECG Review - ECG Intrepretation Comment:: 04/02/19 17:22 sinus tach at 100, nl axis, nl interval, t wave inversions avl, t wave inversions v2, no acute st changes
[2019-04-02 17:25] LABS: ACTIVATED PTT 29.8 SECONDS (25.2-36.5)
[2019-04-02 17:35] LABS: ALBUMIN 3.7 g/dl (3.4-5.0); BILIRUBIN,TOTAL 0.5 mg/dL (0.2-1); BLOOD UREA NITROGEN 27.7 mg/dL (7-18); CALCIUM 10.2 mg/dL (8.5-10.1); CREATININE 1.4 mg/dL (0.55-1.3); POTASSIUM 4.3 mmol/L (3.5-5.1); TOT PROT 7.9 g/dl (6.4-8.2)
[2019-04-02] MEDS ORDERED: SODIUM CHLORIDE 0.9% 1000 ML INFUS.BAG IV ONE (18:27)
[2019-04-02] MEDS ORDERED: SODIUM CHLORIDE 1,000 ML IV STA (18:27)
[2019-04-02] MEDS ORDERED: ACETAMINOPHEN 1000 MG/100 ML VIAL (NON FORMULARY) IVPB ONE (18:29)
[2019-04-02 19:10] LABS: EPI CELLS 2.5 /HPF (0-5/HPF); HYALINE CASTS 3 /lpf (0-8); PH,URINE 5.5 (5.0-8.0); URINE APPEARANCE CLEAR; URINE BACTERIA 0.8 /hpf (NEGATIVE); URINE BILIRUBIN NEGATIVE (NEGATIVE); URINE COLOR YELLOW; URINE GLUCOSE (UA) NEGATIVE (NEGATIVE); URINE KETONE NEGATIVE (NEGATIVE); URINE LEUK ESTERASE TRACE (NEGATIVE); URINE NITRITE NEGATIVE (NEGATIVE); URINE PROTEIN 3+ (NEGATIVE); URINE RBC 2 /hpf (0-4); URINE UROBILINOGEN 0.2 mg/dL (0.2-1.0); URINE WBC 3 /hpf (0-5)
[2019-04-02] MEDS ORDERED: ACETAMINOPHEN INJECTION 100 ML IVPB ONE (20:00)
--- NOTE | 2019-04-02 20:32 | HP ---
78 F h/o HTN, HLD, partial nephrectomy for benign renal mass (2005), remote h/o rectal bleeding in 2018, NIDDM, anxiety, presents s/p mechanical fall when turning and using walker and tripping in her house. Patient endorses she was turning around in living room when her walker got stuck on a quilt and she fell over on her R side. Patient denies prodromal symptoms, denies syncope/LOVING/vision changes/SOB/CP/abdominal pain/N/V/D/urinary changes or bleeding from any source. Patient ujnderwent imaging ijn ED foujnd to have R hip fx, she was evaluated by ortho service and is scheduled for Sunday AM for R hip ORIF, and possibly tomorrow if there is room jn OR schedule. PE GA comfortable, AAOx3, speaking in full sentences HEENT NC/AT, EOMI, neck supple, no JVD Chest CTAB, no wheezing or crackles CVS s1, S2+, RRR Abd Soft, NT, ND, BS+ Ext R leg abducted and externally rotated limited ROM due to severe pain, L leg good strength but limited ROM, good LE pulses, sensation intact and equal LE b/ l. Vital Signs - 24 hr 04/02/19 04/02/19 14:35 15:03 Temperature 97.9 F 97.3 F L Pulse Rate 106 H Pulse Rate [ 106 H Right] Respiratory 18 19 Rate Blood Pressure 156/80 O2 Sat by Pulse 93 L 93 L Oximetry (%) Laboratory Results - last 24 hr 04/02/19 04/02/19 04/02/19 16:30 16:30 16:30 WBC 14.5 H RBC 4.38 Hgb 13.2 Hct 39.3 D MCV 89.8 MCH 30.1 MCHC 33.5 RDW 12.9 Plt Count 264 MPV 7.9 Absolute Neuts (auto) 13.1 H Neutrophils % 90.0 H Lymphocytes % 5.6 L D Monocytes % 4.2 Eosinophils % 0.1 D Basophils % 0.1 Nucleated RBC % 0 PT with INR 11.80 INR 1.00 PTT (Actin FS) 29.8 Sodium 139 Potassium 4.3 Chloride 105 Carbon Dioxide 29 Anion Gap 5 L BUN 27.7 H Creatinine 1.4 H Est GFR (CKD-EPI)AfAm 42.19 Est GFR (CKD-EPI)NonAf 36.41 Random Glucose 117 H Calcium 10.2 H Total Bilirubin 0.5 AST 33 ALT 30 Alkaline Phosphatase 82 Total Protein 7.9 Albumin 3.7 Urine Color Urine Appearance Urine pH Ur Specific [place]orter Urine Protein Urine Glucose (UA) Urine Ketones Urine Blood Urine Nitrite Urine Bilirubin Urine Urobilinogen Ur Leukocyte Esterase Urine WBC (Auto) Urine RBC (Auto) Urine Casts (Auto) U Epithel Cells (Auto) Urine Bacteria (Auto) Blood Type Antibody Screen 04/02/19 04/02/19 16:30 18:30 WBC RBC Hgb Hct MCV MCH MCHC RDW Plt Count MPV Absolute Neuts (auto) Neutrophils % Lymphocytes % Monocytes % Eosinophils % Basophils % Nucleated RBC % PT with INR INR PTT (Actin FS) Sodium Potassium Chloride Carbon Dioxide Anion Gap BUN Creatinine Est GFR (CKD-EPI)AfAm Est GFR (CKD-EPI)NonAf Random Glucose Calcium Total Bilirubin AST ALT Alkaline Phosphatase Total Protein Albumin Urine Color Yellow Urine Appearance Clear Urine pH 5.5 Ur Specific Shorter 1.015 Urine Protein 3+ H Urine Glucose (UA) Negative Urine Ketones Negative Urine Blood Negative Urine Nitrite Negative Urine Bilirubin Negative Urine Urobilinogen 0.2 Ur Leukocyte Esterase Trace Urine WBC (Auto) 3 Urine RBC (Auto) 2 Urine Casts (Auto) 3 U Epithel Cells (Auto) 2.5 Urine Bacteria (Auto) 0.8 Blood Type B POSITIVE Antibody Screen Negative Home Medications Medication Instructions Recorded Atorvastatin Ca [Lipitor] 20 mg PO HS 12/30/15 Omeprazole 40 mg PO DAILY 01/27/16 Acetaminophen [Tylenol -] 500 mg PO Q6H PRN 04/02/19 Isoniazid 300 mg PO DAILY 04/02/19 Losartan/Hydrochlorothiazide 1 each PO DAILY 04/02/19 [Hyzaar 100-12.5 Tablet] Pyridoxine HCl (Vitamin B6) 50 mg PO DAILY 04/02/19 [Pyridoxine HCl] A/P: 78 F h/o HTN, HLD, NIDDM, anxiety admitted for mechanical fall with R hip fx. Scheduled for R hip ORIF Sunday AM. Mechanical fall complicated by R hip fracture, scheduled for R hip ORIF Pain control with IV morphine, IV Tylenol PRN Heparin SC for DVT ppx Ortho consult: Dr Nolan HTN hold Losartan/HCTZ for now in view of JACQUES Norvasc 5mg daily PRN for high BP HLD restart statin History of hematochezia denies current bleeding from any source monitor for bleeding, daily CBCs GERD cont. PPI ?using INH/B6 reviewed chart did not see h/o TB/Latent TB CXR clear, patient does not report fever, chills, nightsweats, hemoptysis, weight loss, or SOB Obtain collateral from PCP to see why shes on INH/B6 DVT ppx: Heparin SC Med Surg Visit type - Emergency Visit Emergency Visit: Yes ED Registration Date: 04/02/19 Care time: The patient presented to the Emergency Department on the above date and was hospitalized for further evaluation of their emergent condition. - New Patient This patient is new to me today: Yes Date on this admission: 04/02/19 - Critical Care Critical Care patient: No
[2019-04-02] MEDS ORDERED: ATORVASTATIN CA 20 MG TABLET (FP) PO SCH (22:00)
[2019-04-02] MEDS ORDERED: SENNOSIDES 8.6MG TABLET (FP) PO ONE (22:55)
[2019-04-02] MEDS ORDERED: ATORVASTATIN CA 20 MG TABLET (FP) ONE (22:55)
[2019-04-02] MEDS ORDERED: HEPARIN NA (PORCINE) 5,000 UNITS/ML 1ML VIAL ONE (22:56)
[2019-04-02] MEDS ORDERED: DOCUSATE SODIUM 100 MG CAPSULE (FP) PO ONE ×2 (22:56→22:58)
[2019-04-02] MEDS: DOCUSATE SODIUM 100 MG CAPSULE (FP) PO SCH (23:02)
[2019-04-02] MEDS: HEPARIN NA (PORCINE) 5,000 UNITS/ML 1ML VIAL SQ SCH (23:02)
[2019-04-02] MEDS: SENNOSIDES 8.6MG TABLET (FP) PO SCH (23:02)
[2019-04-02] MEDS ORDERED: oxyCODONE HCL 5 MG TABLET PO ONE (23:03)
[2019-04-02] MEDS ORDERED: oxyCODONE HCL 5 MG TABLET ONE (23:06)
[2019-04-02] MEDS ORDERED: MORPHINE SULFATE 2 MG/ML VIAL IVPUSH PRN (23:33)
[2019-04-03] MEDS ORDERED: HEPARIN NA (PORCINE) 5,000 UNITS/ML 1ML VIAL ONE (03:21)
[2019-04-03] MEDS: HEPARIN NA (PORCINE) 5,000 UNITS/ML 1ML VIAL SQ SCH ×3 (05:00→21:32)
--- NOTE | 2019-04-03 08:48 | PN ---
Progress Note, Physician Chief Complaint: c/o pain to right hip. Pending OR tomorrow with Dr Nolan/Radha History of Present Illness: 78 F h/o HTN, HLD, NIDDM, anxiety admitted for mechanical fall with R hip fx. Scheduled for R hip ORIF on Sunday with Dr Nolan - Current Medication List Current Medications: Active Medications Atorvastatin Calcium (Lipitor -) 20 mg PO HS [facility] Last Admin: 04/02/19 23:05 Dose: 20 mg Docusate Sodium (Colace -) 100 mg PO HS [facility] Last Admin: 04/02/19 23:02 Dose: 100 mg Heparin Sodium (Porcine) (Heparin -) 5,000 unit SQ TID [facility] Last Admin: 04/03/19 05:00 Dose: 5,000 unit Morphine Sulfate (Morphine Sulfate) 2 mg IVPUSH Q4H PRN PRN Reason: PAIN LEVEL 6-10 Pantoprazole Sodium (Protonix Packets For Oral Suspension -) 40 mg PO DAILY [facility] Polyethylene Glycol (Miralax (For Daily Use) -) 17 gm PO DAILY [facility] Senna (Senna -) 1 tab PO [facility] Last Admin: 04/02/19 23:02 Dose: 1 tab - Objective Vital Signs: Vital Signs Temperature 99.4 F 04/03/19 05:07 Pulse Rate 87 04/03/19 05:07 Respiratory Rate 16 04/03/19 05:07 Blood Pressure 167/81 04/03/19 05:07 O2 Sat by Pulse Oximetry (%) 99 04/03/19 05:07 Constitutional: Yes: Well Nourished, Calm, Mild Distress (secomdary to pain) Eyes: Yes: WNL, Conjunctiva Clear HENT: Yes: WNL, Atraumatic, Normocephalic Neck: Yes: WNL, Supple, Trachea Midline Cardiovascular: Yes: WNL, Regular Rate and Rhythm Respiratory: Yes: WNL, Regular, CTA Bilaterally Gastrointestinal: Yes: WNL, Normal Bowel Sounds ...Rectal Exam: Yes: Deferred Genitourinary: Yes: Ferrer Present (with clear yellow urine) Breast(s): Yes: WNL Musculoskeletal: Yes: Other (righthip pain) Extremities: Yes: External Rotation (to right hip), Other Edema: Yes Edema: RLE: Trace Peripheral Pulses WNL: Yes Peripheral Pulses: Left Radial: 2+, Right Radial: 2+, Left Doralis Pedis: 2+, Right Dorsalis Pedis: 2+, Left Femoral: 2+, Right Femoral: 2+ Integumentary: Yes: WNL Neurological: Yes: WNL, Alert, Oriented ...Motor Strength: LLE, RLE (decreased to pain) Psychiatric: Yes: WNL Labs: CBC, BMP 04/02/19 16:30 04/02/19 16:30 INR, PTT INR 1.00 (0.83-1.09) 04/02/19 16:30 - ....Imaging X-ray: Image Reviewed (right displaced femoral neck fx) Problem List - Problems (1) Prophylactic measure Assessment/Plan: FEN Fluids: NS @ 75mL/hr Electrolytes: replete as indicated Nutrition: diabetic diet , NPO after MD DVT prophylaxis: heparin sq Dispo: continues to require inpatient care. Full code discharge planning Code(s): Z29.9 - ENCOUNTER FOR PROPHYLACTIC MEASURES, UNSPECIFIED (2) Closed right hip fracture Assessment/Plan: NPO after mn for ORIF with Dr Nolan/Radha pain mangament maintain bedrest Code(s): S72.001A - FRACTURE OF UNSP PART OF NECK OF RIGHT FEMUR, INIT Qualifiers: Encounter type: initial encounter Qualified Code(s): S72.001A - Fracture of unspecified part of neck of right femur, initial encounter for closed fracture (3) Diabetes Assessment/Plan: BG well controlled BGM AC/HS with novlog sliding scale diabetic diet until mn then NPO Code(s): E11.9 - TYPE 2 DIABETES MELLITUS WITHOUT COMPLICATIONS (4) HLD (hyperlipidemia) Assessment/Plan: c/w statin Code(s): E78.5 - HYPERLIPIDEMIA, UNSPECIFIED (5) HTN (hypertension) Assessment/Plan: hctx being held for elevated Cr will start back losartan in am in cr stable Code(s): I10 - ESSENTIAL (PRIMARY) HYPERTENSION (6) JACQUES (acute kidney injury) Assessment/Plan: s/p partial nephrectomy improving with IVF, will cont seen by Dr Murillo (renal) will need proteinuria workup, can be done as outpt Code(s): N17.9 - ACUTE KIDNEY FAILURE, UNSPECIFIED Visit type - Emergency Visit Emergency Visit: Yes ED Registration Date: 04/02/19 Care time: The patient presented to the Emergency Department on the above date and was hospitalized for further evaluation of their emergent condition. - New Patient This patient is new to me today: Yes Date on this admission: 04/03/19 - Critical Care Critical Care patient: No - Discharge Referral Referred to [facility] No
--- NOTE | 2019-04-03 09:40 | PN ---
Progress Note (short form) - Note Progress Note: Came to see patient inER, she is at echocardiogram. Will follow up. Plan: She has a displaced right femoral neck fracture and will need surgery. Plan is to do a right hip hemiarthroplasty sunday morning at 10am.
[2019-04-03] MEDS ORDERED: ENOXAPARIN NA (PORCINE) 40 MG/0.4 ML DISP.SYRIN SQ ONE (10:27)
[2019-04-03] MEDS: POLYETHYLENE GLYCOL 3350 119 GM BTL PO SCH (10:58)
[2019-04-03] MEDS: PANTOPRAZOLE SOD 40 MG SUSPENSION PACKET PO SCH (10:58)
--- NOTE | 2019-04-03 12:55 | ECHO ---
Name: JACQUELINE WAHL Exam:Adult Echocardiogram Study Date: 04/03/2019 09:33 AM Age: 78 yrs Reason For Study: evaluate ef MMode/2D Measurements & Calculations IVSd: 1.3 cm Ao root diam: 2.9 cm LVIDd: 3.3 cm LA dimension: 2.1 cm LVIDs: 2.4 cm LVPWd: 1.2 cm LVPWs: 1.3 cm EDV(Teich): 45.7 ml ESV(Teich): 21.2 ml RV S Luigi: 10.2 cm/sec Doppler Measurements & Calculations MV E max luigi: 72.1 cm/sec Ao V2 max: 152.5 cm/sec MV A max luigi: 106.1 cm/sec Ao max P.3 mmHg MV E/A: 0.68 MV dec time: 0.19 sec LV V1 max P.2 mmHg TR max luigi: 291.2 cm/sec LV V1 max: 124.4 cm/sec TR max P.1 mmHg PA V2 max: 92.5 cm/sec Med Peak E' Luigi: 5.4 cm/sec PA max P.4 mmHg Med E/e': 13.4 Lat Peak E' Luigi: 6.3 cm/sec Lat E/e': 11.4 Procedure A complete two-dimensional transthoracic echocardiogram was performed (2D, M-mode, Doppler and color flow Doppler). Left Ventricle The left ventricular size, thickness and function are normal. The left ventricular ejection fraction is normal. Ejection Fraction = 60-65%. The left ventricular wall motion is normal. Right Ventricle The right ventricle is normal in size and function. Atria Normal left and right atrial size and function. Mitral Valve There is no mitral regurgitation noted. Tricuspid Valve There is trace tricuspid regurgitation. Right ventricular systolic pressure is normal. Aortic Valve No hemodynamically significant valvular aortic stenosis. No aortic regurgitation is present. Pulmonic Valve There is no pulmonic valvular regurgitation. Great Vessels The aortic root is normal size. Pericardium/Pleura There is no pericardial effusion. Interpretation Summary The left ventricular size, thickness and function are normal The right ventricle is normal in size and function. There is trace tricuspid regurgitation. MD Ant Husain 04/03/2019 12:54 PM
[2019-04-03 13:00] VITALS: BMI 27.4
--- NOTE | 2019-04-03 13:23 | CONSULT ---
Consultation: NEPHROLOGY CONSULTATION CONSULT REQUEST: We have been asked to medically evaluate this patient for Acute kidney injury HISTORY OF PRESENT ILLNESS: This is a 78 year old female with a history of hypertension, hyperlipidemia, non -insulin dependent diabetes, partial nephrectomy in 2004 admitted to the hospital s/p mechanical fall. When questioning the patient, she reported that after she fell she called her friend for help, but was unable to accurately tell me how long she has been on the ground. She complains of R sided hip pain and appears uncomfortable. In the ED she was found to have a R hip fracture. She is scheduled for an ORIF of the R hip. Nephrology consulted for evaluation and management of acute kidney injury. REVIEW OF SYSTEMS: CONSTITUTIONAL: Absent: fever, chills, diaphoresis, generalized weakness, malaise, loss of appetite, weight change HEENT: Absent: rhinorrhea, nasal congestion, throat pain, throat swelling, difficulty swallowing, mouth swelling, ear pain, eye pain, visual changes CARDIOVASCULAR: Absent: chest pain, syncope, palpitations, irregular heart rate, lightheadedness , peripheral edema RESPIRATORY: Absent: cough, shortness of breath, dyspnea with exertion, orthopnea, wheezing, stridor, hemoptysis GASTROINTESTINAL: Absent: abdominal pain, abdominal distension, nausea, vomiting, diarrhea, constipation, melena, hematochezia GENITOURINARY: Absent: dysuria, frequency, urgency, hesitancy, hematuria, flank pain, genital pain MUSCULOSKELETAL: arthralgia Absent: myalgia, joint swelling, back pain, neck pain SKIN: Absent: rash, itching, pallor HEMATOLOGIC/IMMUNOLOGIC: Absent: easy bleeding, easy bruising, lymphadenopathy, frequent infections ENDOCRINE: Absent: unexplained weight gain, unexplained weight loss, heat intolerance, cold intolerance NEUROLOGIC: Absent: headache, focal weakness or paresthesias, dizziness, unsteady gait, seizure, mental status changes, bladder or bowel incontinence PSYCHIATRIC: Absent: anxiety, depression, suicidal or homicidal ideation, hallucinations. PHYSICAL EXAMINATION Vital Signs - 24 hr 04/02/19 04/02/19 04/02/19 14:35 15:03 23:14 Temperature 97.9 F 97.3 F L 97.1 F L Pulse Rate 106 H Pulse Rate [ 106 H 86 Right] Respiratory 18 19 20 Rate Blood Pressure 156/80 Blood Pressure 154/89 [Right Arm] O2 Sat by Pulse 93 L 93 L 95 Oximetry (%) 04/03/19 04/03/19 04/03/19 05:07 11:48 12:47 Temperature 99.4 F 98.4 F 98.1 F Pulse Rate 90 Pulse Rate [ 87 89 Right] Respiratory 16 16 20 Rate Blood Pressure 180/100 H Blood Pressure 167/81 181/89 H [Right Arm] O2 Sat by Pulse 99 95 96 Oximetry (%) GENERAL: A&Ox3, in mild distress ENT: Dry mucus membranes NECK: No JVD LUNGS: CTA, no wheezes HEART: RRR, no murmurs ABDOMEN: Soft, nontender, BS present MUSCULOSKELETAL: R sided hip tenderness EXTREMITIES: 2+ pulses, no edema. Laboratory Results - last 24 hr 04/02/19 04/02/19 04/02/19 16:30 16:30 16:30 WBC 14.5 H RBC 4.38 Hgb 13.2 Hct 39.3 D MCV 89.8 MCH 30.1 MCHC 33.5 RDW 12.9 Plt Count 264 MPV 7.9 Absolute Neuts (auto) 13.1 H Neutrophils % 90.0 H Lymphocytes % 5.6 L D Monocytes % 4.2 Eosinophils % 0.1 D Basophils % 0.1 Nucleated RBC % 0 PT with INR 11.80 INR 1.00 PTT (Actin FS) 29.8 Sodium 139 Potassium 4.3 Chloride 105 Carbon Dioxide 29 Anion Gap 5 L BUN 27.7 H Creatinine 1.4 H Est GFR (CKD-EPI)AfAm 42.19 Est GFR (CKD-EPI)NonAf 36.41 Random Glucose 117 H Calcium 10.2 H Total Bilirubin 0.5 AST 33 ALT 30 Alkaline Phosphatase 82 Total Protein 7.9 Albumin 3.7 Urine Color Urine Appearance Urine pH Ur Specific [place] Urine Protein Urine Glucose (UA) Urine Ketones Urine Blood Urine Nitrite Urine Bilirubin Urine Urobilinogen Ur Leukocyte Esterase Urine WBC (Auto) Urine RBC (Auto) Urine Casts (Auto) U Epithel Cells (Auto) Urine Bacteria (Auto) Blood Type Antibody Screen 04/02/19 04/02/19 16:30 18:30 WBC RBC Hgb Hct MCV MCH MCHC RDW Plt Count MPV Absolute Neuts (auto) Neutrophils % Lymphocytes % Monocytes % Eosinophils % Basophils % Nucleated RBC % PT with INR INR PTT (Actin FS) Sodium Potassium Chloride Carbon Dioxide Anion Gap BUN Creatinine Est GFR (CKD-EPI)AfAm Est GFR (CKD-EPI)NonAf Random Glucose Calcium Total Bilirubin AST ALT Alkaline Phosphatase Total Protein Albumin Urine Color Yellow Urine Appearance Clear Urine pH 5.5 Ur Specific [place] 1.015 Urine Protein 3+ H Urine Glucose (UA) Negative Urine Ketones Negative Urine Blood Negative Urine Nitrite Negative Urine Bilirubin Negative Urine Urobilinogen 0.2 Ur Leukocyte Esterase Trace Urine WBC (Auto) 3 Urine RBC (Auto) 2 Urine Casts (Auto) 3 U Epithel Cells (Auto) 2.5 Urine Bacteria (Auto) 0.8 Blood Type B POSITIVE Antibody Screen Negative Active Medications Generic Name Dose Route Start Last Admin Trade Name Freq PRN Reason Stop Dose Admin Atorvastatin Calcium 20 mg 04/02/19 22:00 04/02/19 23:05 Lipitor - PO 20 mg HS KITA Administration Docusate Sodium 100 mg 04/02/19 22:00 04/02/19 23:02 Colace - PO 100 mg HS KITA Administration Heparin Sodium (Porcine) 5,000 unit 04/02/19 22:00 04/03/19 05:00 Heparin - SQ 5,000 unit TID KITA Administration Morphine Sulfate 2 mg 04/02/19 23:33 04/03/19 12:38 Morphine Sulfate IVPUSH 2 mg Q4H PRN Administration PAIN LEVEL 6-10 Pantoprazole Sodium 40 mg 04/03/19 10:00 04/03/19 10:58 Protonix Packets For Oral Suspension - PO 40 mg DAILY KITA Administration Polyethylene Glycol 17 gm 04/03/19 10:00 04/03/19 10:58 Miralax (For Daily Use) - PO 17 gm DAILY KITA Administration Senna 1 tab 04/02/19 22:00 04/02/19 23:02 Senna - PO 1 tab HS KITA Administration ASSESSMENT/PLAN: 78 year old female with a history of hypertension, hyperlipidemia, non-insulin dependent diabetes, partial nephrectomy in 2004 admitted to the hospital s/p mechanical fall. #Acute Kidney Injury: likely pre-renal azotemia secondary to volume depletion s/ p fall -resuscitate with 75cc/hr normal saline - 2 bags ordered -recheck creatinine in the morning -check CPK to rule out component of rhabdo, although urinalysis is not suggestive of that -HCTZ/losartan was held, can likely restart in AM after rechecking creatinine -will continue to monitor -for surgery in AM #Hypercalcemia: could also be related to volume depletion -corrected CA 10.5 -resuscitate with normal saline, 75cc/hr -recheck calcium in AM -if continues to remain elevated after fluid hydration, will start workup for hypercalcemia Kirk Huerta D.O., PGY-[address] Murillo Visit type - Emergency Visit Emergency Visit: Yes ED Registration Date: 04/02/19 Care time: The patient presented to the Emergency Department on the above date and was hospitalized for further evaluation of their emergent condition. - New Patient This patient is new to me today: Yes Date on this admission: 04/03/19 - Critical Care Critical Care patient: No ATTENDING PHYSICIAN STATEMENT I saw and evaluated the patient. I reviewed the resident's note and discussed the case with the resident. I agree with the resident's findings and plan as documented. SUBJECTIVE: OBJECTIVE: ASSESSMENT AND PLAN:
[2019-04-03] MEDS ORDERED: SODIUM CHLORIDE 0.45% 1,000 ML IV SCH (13:30)
[2019-04-03] MEDS: SODIUM CHLORIDE 1,000 ML IV SCH (14:11)
--- NOTE | 2019-04-03 15:08 | CON.ORTH ---
Consult Reason for Consultation:: right hip fx - Past Medical History ...: No - Alcohol/Substance Use Hx Alcohol Use: No - Smoking History Smoking history: Never smoked Have you smoked in the past 12 months: No Aproximately how many cigarettes per day: 2 If you are a former smoker, when did you quit?: 5 YR AGO Home Medications - Allergies Allergies/Adverse Reactions: Allergies Allergy/AdvReac Type Severity Reaction Status Date / Time No Known Allergies Allergy Verified 04/02/19 15:03 - Home Medications Home Medications: Ambulatory Orders Atorvastatin Ca [Lipitor] 20 mg PO HS 12/30/15 Omeprazole 40 mg PO DAILY 01/27/16 Acetaminophen [Tylenol -] 500 mg PO Q6H PRN 04/02/19 Isoniazid 300 mg PO DAILY 04/02/19 Losartan/Hydrochlorothiazide [Hyzaar 100-12.5 Tablet] 1 each PO DAILY 04/02/19 Pyridoxine HCl (Vitamin B6) [Pyridoxine HCl] 50 mg PO DAILY 04/02/19 Physical Exam for Ortho Vital Signs: Vital Signs Temperature 98.1 F 04/03/19 12:47 Pulse Rate 90 04/03/19 12:47 Respiratory Rate 20 04/03/19 12:47 Blood Pressure 180/100 H 04/03/19 12:47 O2 Sat by Pulse Oximetry (%) 96 04/03/19 12:47 Labs: CBC, BMP 04/02/19 16:30 04/02/19 16:30 INR, PTT INR 1.00 (0.83-1.09) 04/02/19 16:30 - Lower Extremity Hip: Yes: Right, Decreased ROM, Leg Externally Rotated, Leg Shortened, Pain, Swelling, Other (nvi) Imaging - Results X-ray: Image Reviewed Assessment/Plan 78 F h/o HTN, HLD, partial nephrectomy for benign renal mass (2004), remote h/o rectal bleeding in 2018, NIDDM, anxiety, presents s/p mechanical fall when turning and using walker and tripping in her house. Patient endorses she was turning around in living room when her walker got stuck on a quilt and she fell over on her R side. Patient denies prodromal symptoms, denies syncope/LOVING/vision changes/SOB/CP/abdominal pain/N/V/D/urinary changes or bleeding from any source. a/p- right displaced femoral neck fx Risks and benefits were d/w pt in detail OR tomorrow for right hip lynn Surgical clearance NPO after midnight d/w Dr. Garcia
--- NOTE | 2019-04-03 15:15 | EKG ---
Test Reason : Blood Pressure : / mmHG Vent. Rate : 100 BPM Atrial Rate : 100 BPM P-R Int : 142 ms QRS Dur : 080 ms QT Int : 332 ms P-R-T Axes : 074 -07 061 degrees QTc Int : 428 ms NORMAL SINUS RHYTHM NORMAL ECG WHEN COMPARED WITH ECG OF 27-NOV-2018 16:55, NO SIGNIFICANT CHANGE WAS FOUND Confirmed by CARLOS LABOY MD ([id number]) on 04/03/2019 3:14:51 PM Referred By: Confirmed By:CARLOS LABOY MD
--- NOTE | 2019-04-03 15:56 | PN ---
Teaching Attending Note Name of Resident: Kirk Huerta (Nephrology) ATTENDING PHYSICIAN STATEMENT I saw and evaluated the patient. I reviewed the resident's note and discussed the case with the resident. I agree with the resident's findings and plan as documented. Renal Pt is a 78 year old female with pmhx of htn, part nephrectomy, dm, anxiety who presents after a fall and was found to have a right hip fracture. She does not think that she was on the ground for a long time. 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 pmhx ckd, dm anxiety pshx partial nephrectomy nkda social hx denies family hx non contrib Current Medications Generic Name Dose Route Start Last Admin Trade Name Freq PRN Reason Stop Dose Admin Acetaminophen 1,000 mg 04/03/19 13:31 Ofirmev Injection - IVPB 04/04/19 13:31 Q6H PRN PAIN LEVEL 4 - 6 Atorvastatin Calcium 20 mg 04/03/19 22:00 Lipitor - PO HS KITA Docusate Sodium 100 mg 04/02/19 22:00 04/02/19 23:02 Colace - PO 100 mg HS KITA Administration Heparin Sodium (Porcine) 5,000 unit 04/02/19 22:00 04/03/19 14:12 Heparin - SQ 5,000 unit TID KITA Administration Sodium Chloride 1,000 mls @ 75 mls/hr 04/03/19 13:30 04/03/19 14:11 Normal Saline - IV 04/05/19 02:49 75 mls/hr ASDIR KITA Administration Morphine Sulfate 2 mg 04/02/19 23:33 04/03/19 12:38 Morphine Sulfate IVPUSH 2 mg Q4H PRN Administration PAIN LEVEL 6-10 Pantoprazole Sodium 40 mg 04/03/19 10:00 04/03/19 10:58 Protonix Packets For Oral Suspension - PO 40 mg DAILY [facility] Administration Polyethylene Glycol 17 gm 04/03/19 10:00 04/03/19 10:58 Miralax (For Daily Use) - PO 17 gm DAILY [facility] Administration Senna 1 tab 04/02/19 22:00 04/02/19 23:02 Senna - PO 1 tab HS KITA Administration Laboratory Tests 11/28/18 11/29/18 11/30/18 02:41 06:43 08:28 WBC Hgb Creatinine 1.0 1.0 1.1 Calcium Urine Protein 04/02/19 04/02/19 04/02/19 16:30 16:30 18:30 WBC 14.5 H Hgb 13.2 Creatinine 1.4 H Calcium 10.2 H Urine Protein 3+ H Last Vital Signs Temp Pulse Resp BP Pulse Ox 98.1 F 90 20 180/100 H 96 04/03/19 12:47 04/03/19 12:47 04/03/19 12:47 04/03/19 12:47 04/03/19 12:47 cardio s1s2 pulm clear GI soft ext neg edema Impression 1. CKD 2. hypercalcemia 3. proteinuria 4. dm 5. anxiety 6. 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
[2019-04-03] MEDS: ACETAMINOPHEN 1000 MG/100 ML VIAL (NON FORMULARY) IVPB PRN (16:23)
[2019-04-03 16:59] LABS: BASO % 0.4 % (0-2.0); EOS % 0.8 % (0-4.5); HEMATOCRIT 36.6 % (32.4-45.2); HEMOGLOBIN 12.3 GM/dL (10.7-15.3); LYMPH % 9.6 % (8-40); MCH 30.1 pg (25.7-33.7); MCHC 33.6 g/dl (32.0-36.0); MEAN CELL VOLUME 89.5 fl (80-96); MEAN PLT VOLUME 7.7 fl (7.5-11.1); MONO % 5.1 % (3.8-10.2); NEUT % 84.1 % (42.8-82.8); PLATELET COUNT 223 K/MM3 (134-434); RBC 4.09 M/mm3 (3.60-5.2); WHITE BLOOD COUNT 9.2 K/mm3 (4.0-10.0)
[2019-04-03 17:15] LABS: INR 1.1 (0.83-1.09)
[2019-04-03 18:00] LABS: ALBUMIN 3.4 g/dl (3.4-5.0); BLOOD UREA NITROGEN 29.6 mg/dL (7-18); CALCIUM 9.6 mg/dL (8.5-10.1); CREATININE 1.3 mg/dL (0.55-1.3); MAGNESIUM 1.9 mg/dL (1.8-2.4); TOT PROT 7.6 g/dl (6.4-8.2)
[2019-04-03] MEDS: DOCUSATE SODIUM 100 MG CAPSULE (FP) PO SCH (21:33)
[2019-04-03] MEDS: SENNOSIDES 8.6MG TABLET (FP) PO SCH (21:33)
[2019-04-03] MEDS ORDERED: ATORVASTATIN CA 20 MG TABLET (FP) PO SCH (22:00)
[2019-04-04] MEDS: SODIUM CHLORIDE 1,000 ML IV SCH (01:33)
[2019-04-04] MEDS: ACETAMINOPHEN 1000 MG/100 ML VIAL (NON FORMULARY) IVPB PRN (01:41)
--- NOTE | 2019-04-04 08:32 | PN ---
Progress Note, Physician History of Present Illness: 78 F h/o HTN, HLD, NIDDM, anxiety admitted for mechanical fall with R hip fx. Scheduled for R hip ORIF on Sunday with Dr Nolan - Current Medication List Current Medications: Active Medications Acetaminophen (Ofirmev Injection -) 1,000 mg IVPB Q6H PRN PRN Reason: PAIN LEVEL 4 - 6 Stop: 04/04/19 13:31 Last Admin: 04/04/19 01:41 Dose: 1,000 mg Atorvastatin Calcium (Lipitor -) 20 mg PO HS KITA Last Admin: 04/03/19 21:33 Dose: 20 mg Docusate Sodium (Colace -) 100 mg PO HS KITA Last Admin: 04/03/19 21:33 Dose: 100 mg Sodium Chloride (Normal Saline -) 1,000 mls @ 75 mls/hr IV ASDIR KITA Stop: 04/05/19 02:49 Last Admin: 04/04/19 01:33 Dose: 75 mls/hr Morphine Sulfate (Morphine Sulfate) 2 mg IVPUSH Q4H PRN PRN Reason: PAIN LEVEL 6-10 Last Admin: 04/03/19 12:38 Dose: 2 mg Pantoprazole Sodium (Protonix Packets For Oral Suspension -) 40 mg PO DAILY [facility] Last Admin: 04/03/19 10:58 Dose: 40 mg Polyethylene Glycol (Miralax (For Daily Use) -) 17 gm PO DAILY [facility] Last Admin: 04/03/19 10:58 Dose: 17 gm Senna (Senna -) 1 tab PO HS [facility] Last Admin: 04/03/19 21:33 Dose: 1 tab - Objective Vital Signs: Vital Signs Temperature 97.6 F 04/04/19 06:00 Pulse Rate 76 04/04/19 06:00 Respiratory Rate 18 04/04/19 06:00 Blood Pressure 156/78 04/04/19 06:00 O2 Sat by Pulse Oximetry (%) 95 04/03/19 21:00 Labs: CBC, BMP 04/03/19 16:15 04/03/19 16:15 INR, PTT INR 1.10 (0.83-1.09) H 04/03/19 16:15 Problem List - Problems (1) Prophylactic measure Assessment/Plan: FEN Fluids: NS @ 75mL/hr Electrolytes: replete as indicated Nutrition: diabetic diet , NPO after MD DVT prophylaxis: heparin sq Dispo: continues to require inpatient care. Full code discharge planning Code(s): Z29.9 - ENCOUNTER FOR PROPHYLACTIC MEASURES, UNSPECIFIED (2) Closed right hip fracture Assessment/Plan: s/p right hip hemiarthroplasty no intraop comps tolerated well Code(s): S72.001A - FRACTURE OF UNSP PART OF NECK OF RIGHT FEMUR, INIT Qualifiers: Encounter type: initial encounter Qualified Code(s): S72.001A - Fracture of unspecified part of neck of right femur, initial encounter for closed fracture (3) Diabetes Assessment/Plan: BG well controlled BGM AC/HS with novlog sliding scale diabetic diet Code(s): E11.9 - TYPE 2 DIABETES MELLITUS WITHOUT COMPLICATIONS (4) HLD (hyperlipidemia) Assessment/Plan: c/w statin Code(s): E78.5 - HYPERLIPIDEMIA, UNSPECIFIED (5) HTN (hypertension) Assessment/Plan: hctz being held for elevated Cr will start back losartan now and reasses for Hctx in am Code(s): I10 - ESSENTIAL (PRIMARY) HYPERTENSION (6) JACQUES (acute kidney injury) Assessment/Plan: s/p partial nephrectomy improved with IVF seen by Dr Murillo (renal) will need proteinuria workup, can be done as outpt Code(s): N17.9 - ACUTE KIDNEY FAILURE, UNSPECIFIED (7) On isoniazid therapy Assessment/Plan: pt on isoniazid and pyridoxine at home, pt does not know why no hx of TB or exposure on last admission 12/[address] Jefferson PCP awaiting response quantiferon pending not producing and sputum Code(s): Z79.899 - OTHER CAUSTIC MIXER (CURRENT) DRUG THERAPY Visit type - Emergency Visit Emergency Visit: Yes ED Registration Date: 04/02/19 Care time: The patient presented to the Emergency Department on the above date and was hospitalized for further evaluation of their emergent condition. - New Patient This patient is new to me today: No - Critical Care Critical Care patient: No - Discharge Referral Referred to [facility] Med P.C.: No
[2019-04-04 08:52] LABS: BASO % 0.7 % (0-2.0); EOS % 2.2 % (0-4.5); HEMOGLOBIN 11.9 GM/dL (10.7-15.3); LYMPH % 11.4 % (8-40); MCH 30.5 pg (25.7-33.7); MCHC 34.1 g/dl (32.0-36.0); MEAN CELL VOLUME 89.6 fl (80-96); MEAN PLT VOLUME 7.8 fl (7.5-11.1); MONO % 8.7 % (3.8-10.2); PLATELET COUNT 209 K/MM3 (134-434); RBC 3.91 M/mm3 (3.60-5.2); RDW 12.8 % (11.6-15.6); WHITE BLOOD COUNT 8.8 K/mm3 (4.0-10.0)
[2019-04-04] MEDS ORDERED: ROPIVACAINE HCL 0.5% 30ML VIAL ONE (09:14)
[2019-04-04 09:15] LABS: INR 1.07 (0.83-1.09); PROTHROMBIN TIME (PATIENT) 12.6 SEC (9.7-13.0)
[2019-04-04] MEDS ORDERED: MIDAZOLAM HCL 2 MG/2 ML SINGLE DOSE VIAL ONE ×2 (09:16)
[2019-04-04] MEDS: POLYETHYLENE GLYCOL 3350 119 GM BTL PO SCH (09:18)
[2019-04-04] MEDS: PANTOPRAZOLE SOD 40 MG SUSPENSION PACKET PO SCH (09:18)
[2019-04-04 09:21] LABS: ALBUMIN 3.1 g/dl (3.4-5.0); BILIRUBIN,TOTAL 1.1 mg/dL (0.2-1); BLOOD UREA NITROGEN 27.3 mg/dL (7-18); CREATININE 1.2 mg/dL (0.55-1.3); MAGNESIUM 1.7 mg/dL (1.8-2.4); TOT PROT 6.9 g/dl (6.4-8.2)
[2019-04-04] MEDS ORDERED: VANCOMYCIN 1,000 MG VIAL (RESTRICTED TO ID ONLY) ONE (09:27)
[2019-04-04] MEDS ORDERED: ceFAZolin SODIUM 1 GM VIAL IVPB ONE (10:15)
--- NOTE | 2019-04-04 11:14 | OP ---
Operative Note - Note: Operative Date: 04/04/19 ([facility]) Pre-Operative Diagnosis: right displaced femoral neck fx Operation: right hip hemiarthroplasty Post-Operative Diagnosis: Same as Pre-op Surgeon: Emile Garcia Dye Tub Operator: Shawn Reyes Anesthesiologist/SPOT MACHINE OPERATOR: Kirk North Anesthesia: Spinal, Local Specimens Removed: femoral head Estimated Blood Loss (mls): 100
[2019-04-04] MEDS ORDERED: LACTATED RINGERS SOLUTION 1,000 ML IV SCH ×2 (11:15→11:56)
[2019-04-04] MEDS ORDERED: PROMETHAZINE HCL 25 MG/1 ML VIAL IVPB PRN (11:20)
[2019-04-04] MEDS ORDERED: ONDANSETRON 4 MG/2 ML VIAL IVPUSH PRN (11:20)
[2019-04-04] MEDS ORDERED: oxyCODONE HCL 5 MG TABLET PO PRN (11:22)
--- NOTE | 2019-04-04 11:55 | SPEC ---
DATE OF OPERATION: 04/04/2019 PREOPERATIVE DIAGNOSIS: Right displaced femoral neck fracture. POSTOPERATIVE DIAGNOSIS: Right displaced femoral neck fracture. PROCEDURE: Right hip hemiarthroplasty, Press-Fit. SURGICAL ATTENDING: Antonio Garcia MD FAN BLADE ALIGNER: WALTER Haddad ANESTHESIA: Spinal. CLOSURE: A Paulette hip system with a No. 5 Accolade II femoral stem, a standard femoral head and a 44 bipolar acetabulum, No. 1 Vicryl for capsule and fascia, 0 and 2-0 subcutaneous and 3-0 V-Loc 90 for skin. ESTIMATED BLOOD LOSS: 50 mL. COMPLICATIONS: None. CONDITION: To recovery room in stable condition. DESCRIPTION OF OPERATIVE PROCEDURE: The patient was taken to the operating room on April 04, 2019. Spinal anesthesia was administered by the anesthesiologist. IV antibiotic was administered prophylactically prior to the case. The patient was placed in the lateral decubitus position with all prominences well padded. The right hip area was prepped and draped in the usual sterile fashion. A 10- to 12-cm longitudinal incision over the posterolateral aspect of the greater trochanter. Hemostasis was achieved using Bovie cautery. Sharp dissection was carried down to the level of the fascia, which was opened the entire length of the incision. The fibers of the gluteus laura were spread in the direction of origin, exposing the greater trochanter. A Charnley retractor was placed in this layer and care was taken not to injure the sciatic nerve. The short external rotators were detached from their insertion to the greater trochanter and peeled off the capsule. A T-capsulotomy was then performed with the "T" extending down to the level of the labrum but not cutting the labrum. The femoral head was removed from the acetabulum by use of a corkscrew. It was measured to decide the appropriate size of the acetabular component. A trial reduction with the appropriate size acetabulum achieved good suction fit. Next, our attention was directed to the femur. The proximal femur was prepared using a box chisel, serial broaches and awls until the appropriate size broach achieved a good fit and fill with the appropriate version. Trial reduction with the bipolar revealed excellent stability. It was stable at 90 degrees of flexion and marked adduction. There was a positive hang test, negative telescoping and good stability in external rotation and extension. The trial component was removed. A real Accolade II stem and bipolar were then malleted into place and cold welded together. The hip was then reduced. Range of motion, stability and limb lengths were as described previously. The incision was copiously irrigated with antibiotic. Vancomycin powder was then placed into the hip joint. The capsule was then closed using 0 Vicryl suture. The fascia was then closed using No. 1 Vicryl, 0 and 2-0 subcutaneous, and 3-0 V-Loc 90 subcuticular with skin glue for the skin. A sterile pressure dressing was applied. The patient was placed in the supine position with bilateral SCDs and an abduction pillow, and x-rays revealed excellent position of the components. The patient was transferred to recovery in stable condition. There were no complications. Estimated blood loss was 50 mL. ANTONIO GARCIA M.D. [id number]
[2019-04-04] MEDS ORDERED: SODIUM CHLORIDE 1,000 ML IV SCH (11:56)
[2019-04-04] MEDS ORDERED: ACETAMINOPHEN 1000 MG/100 ML VIAL (NON FORMULARY) IVPB PRN (11:56)
[2019-04-04] MEDS ORDERED: LABETALOL HCL 5 MG/1 ML (100MG/20 ML VIAL) IVPUSH ONE ×2 (12:31→12:37)
[2019-04-04] MEDS ORDERED: LABETALOL HCL 5 MG/1 ML (100MG/20 ML VIAL) IVPB ONE (13:26)
[2019-04-04] MEDS ORDERED: LOSARTAN POTASSIUM 50 MG TABLET (FP) PO ONE (14:30)
[2019-04-04] MEDS ORDERED: MAGNESIUM OXIDE 400 MG TABLET (FP) PO ONE (17:26)
--- NOTE | 2019-04-04 17:28 | PN ---
Progress Note, Physician History of Present Illness: Pt seen and examined at bedside. She had her hip repaired. - Current Medication List Current Medications: Active Medications Aspirin (Asa -) 325 mg PO DAILY@0800 [facility] Atorvastatin Calcium (Lipitor -) 20 mg PO HS KITA Docusate Sodium (Colace -) 100 mg PO HS [facility] Fentanyl (Sublimaze Injection -) 50 mcg IVPUSH [id number] PRN PRN Reason: PAIN-PACU ORDER X 4 DOSES ONLY Hydrochlorothiazide (Hctz -) 12.5 mg PO DAILY [facility] Cefazolin Sodium/Dextrose (Ancef 2 Gm Premixed Ivpb -) 2 gm in 50 mls @ 100 mls /hr IVPB Q8H-IV [facility] Stop: 04/05/19 17:59 Lactated Ringer's (Lactated Ringers Solution) 1,000 mls @ 125 mls/hr IV ASDIR KITA Stop: 04/05/19 06:00 Last Admin: 04/04/19 14:26 Dose: Not Given Sodium Chloride (Normal Saline -) 1,000 mls @ 75 mls/hr IV ASDIR KITA Stop: 04/05/19 02:49 Losartan Potassium (Cozaar -) 100 mg PO DAILY [facility] Magnesium Oxide (Mag-Ox -) 800 mg PO ONCE ONE Stop: 04/04/19 17:27 Morphine Sulfate (Morphine Sulfate) 2 mg IVPUSH Q4H PRN PRN Reason: PAIN LEVEL 6-10 Ondansetron HCl (Zofran Injection) 4 mg IVPUSH Q6H PRN PRN Reason: NAUSEA AND/OR VOMITING Oxycodone HCl (Roxicodone -) 5 mg PO Q3H PRN PRN Reason: PAIN LEVEL 1-5 Stop: 04/05/19 11:21 Pantoprazole Sodium (Protonix Packets For Oral Suspension -) 40 mg PO DAILY [facility] Polyethylene Glycol (Miralax (For Daily Use) -) 17 gm PO DAILY [facility] Promethazine HCl (Phenergan Injection -) 12.5 mg IVPB Q6H PRN PRN Reason: NAUSEA-FOR RESCUE AFTER 15 MIN Senna (Senna -) 1 tab PO HS [facility] - Objective Vital Signs: Vital Signs Temperature 98.8 F 04/04/19 14:15 Pulse Rate 105 H 04/04/19 14:15 Respiratory Rate 20 04/04/19 14:15 Blood Pressure 163/92 04/04/19 14:15 O2 Sat by Pulse Oximetry (%) 99 04/04/19 14:15 Constitutional: Yes: Calm Eyes: Yes: Conjunctiva Clear HENT: Yes: Atraumatic Cardiovascular: Yes: S1, S2 Respiratory: Yes: CTA Bilaterally Gastrointestinal: Yes: Soft Genitourinary: Yes: WNL Edema: No Neurological: Yes: Oriented Psychiatric: Yes: Oriented Labs: CBC, BMP 04/04/19 07:55 04/04/19 07:55 INR, PTT INR 1.07 (0.83-1.09) 04/04/19 07:55 Assessment/Plan Current Medications Generic Name Dose Route Start Last Admin Trade Name Freq PRN Reason Stop Dose Admin Aspirin 325 mg 04/05/19 08:00 Asa - PO DAILY@0800 [facility] Atorvastatin Calcium 20 mg 04/04/19 22:00 Lipitor - PO HS KITA Docusate Sodium 100 mg 04/04/19 22:00 Colace - PO HS KITA Fentanyl 50 mcg 04/04/19 11:20 Sublimaze Injection - IVPUSH [id number] PRN PAIN-PACU ORDER X 4 DOSES ONLY Hydrochlorothiazide 12.5 mg 04/05/19 10:00 Hctz - PO DAILY [facility] Cefazolin Sodium/Dextrose 2 gm in 50 mls @ 100 mls/hr 04/04/19 18:00 Ancef 2 Gm Premixed Ivpb - IVPB 04/05/19 17:59 Q8H-IV KITA Lactated Ringer's 1,000 mls @ 125 mls/hr 04/04/19 11:56 04/04/19 14:26 Lactated Ringers Solution IV 04/05/19 06:00 Not Given ASDIR KITA Sodium Chloride 1,000 mls @ 75 mls/hr 04/04/19 11:56 Normal Saline - IV 04/05/19 02:49 ASDIR KITA Losartan Potassium 100 mg 04/05/19 10:00 Cozaar - PO DAILY [facility] Magnesium Oxide 800 mg 04/04/19 17:26 Mag-Ox - PO 04/04/19 17:27 ONCE ONE Morphine Sulfate 2 mg 04/04/19 11:56 Morphine Sulfate IVPUSH Q4H PRN PAIN LEVEL 6-10 Ondansetron HCl 4 mg 04/04/19 11:20 Zofran Injection IVPUSH Q6H PRN NAUSEA AND/OR VOMITING Oxycodone HCl 5 mg 04/04/19 11:22 Roxicodone - PO 04/05/19 11:21 Q3H PRN PAIN LEVEL 1-5 Pantoprazole Sodium 40 mg 04/05/19 10:00 Protonix Packets For Oral Suspension - PO DAILY [facility] Polyethylene Glycol 17 gm 04/05/19 10:00 Miralax (For Daily Use) - PO DAILY [facility] Promethazine HCl 12.5 mg 04/04/19 11:20 Phenergan Injection - IVPB Q6H PRN NAUSEA-FOR RESCUE AFTER 15 MIN Senna 1 tab 04/04/19 22:00 Senna - PO HS KITA Impression 1. CKD 2. hypercalcemia 3. proteinuria 4. dm 5. anxiety 6. s/p hip fracture Plan - replace mag - monitor renal function - can get proteinuria workup as outpt - can d/c fluids as she is tolerating diet
[2019-04-04] MEDS ORDERED: CEFAZOLIN 2 GM/D5W 2 GM/50 ML ML IVPB SCH (18:00)
[2019-04-04] MEDS: CEFAZOLIN 2 GM/D5W 2 GM/50 ML ML IVPB SCH (18:05)
[2019-04-04] MEDS: MORPHINE SULFATE 2 MG/ML VIAL IVPUSH PRN ×2 (18:16→21:58)
[2019-04-04] MEDS: ATORVASTATIN CA 20 MG TABLET (FP) PO SCH (21:56)
[2019-04-04] MEDS: SENNOSIDES 8.6MG TABLET (FP) PO SCH (21:56)
[2019-04-04] MEDS: DOCUSATE SODIUM 100 MG CAPSULE (FP) PO SCH (21:56)
[2019-04-05] MEDS: CEFAZOLIN 2 GM/D5W 2 GM/50 ML ML IVPB SCH ×2 (02:39→09:31)
[2019-04-05] MEDS: MORPHINE SULFATE 2 MG/ML VIAL IVPUSH PRN ×4 (04:02→21:05)
[2019-04-05] MEDS ORDERED: ASPIRIN 325 MG TABLET PO SCH (08:00)
--- NOTE | 2019-04-05 08:40 | PN ---
Progress Note, Physician History of Present Illness: She feels well. Resting in bed - Current Medication List Current Medications: Active Medications Aspirin (Asa -) 325 mg PO DAILY@0800 [facility] Atorvastatin Calcium (Lipitor -) 20 mg PO HS [facility] Last Admin: 04/04/19 21:56 Dose: 20 mg Docusate Sodium (Colace -) 100 mg PO HS [facility] Last Admin: 04/04/19 21:56 Dose: 100 mg Fentanyl (Sublimaze Injection -) 50 mcg IVPUSH [id number] PRN PRN Reason: PAIN-PACU ORDER X 4 DOSES ONLY Cefazolin Sodium/Dextrose (Ancef 2 Gm Premixed Ivpb -) 2 gm in 50 mls @ 100 mls /hr IVPB Q8H-IV [facility] Stop: 04/05/19 17:59 Last Admin: 04/05/19 02:39 Dose: 100 mls/hr Losartan Potassium (Cozaar -) 100 mg PO DAILY [facility] Morphine Sulfate (Morphine Sulfate) 2 mg IVPUSH Q4H PRN PRN Reason: PAIN LEVEL 6-10 Last Admin: 04/05/19 04:02 Dose: 2 mg Ondansetron HCl (Zofran Injection) 4 mg IVPUSH Q6H PRN PRN Reason: NAUSEA AND/OR VOMITING Oxycodone HCl (Roxicodone -) 5 mg PO Q3H PRN PRN Reason: PAIN LEVEL 1-5 Stop: 04/05/19 11:21 Pantoprazole Sodium (Protonix Packets For Oral Suspension -) 40 mg PO DAILY [facility] Polyethylene Glycol (Miralax (For Daily Use) -) 17 gm PO DAILY [facility] Promethazine HCl (Phenergan Injection -) 12.5 mg IVPB Q6H PRN PRN Reason: NAUSEA-FOR RESCUE AFTER 15 MIN Senna (Senna -) 1 tab PO [facility] Last Admin: 04/04/19 21:56 Dose: 1 tab - Objective Vital Signs: Vital Signs Temperature 98.3 F 04/05/19 06:00 Pulse Rate 112 H 04/05/19 06:00 Respiratory Rate 20 04/05/19 06:00 Blood Pressure 157/86 04/05/19 06:00 O2 Sat by Pulse Oximetry (%) 100 04/04/19 21:00 Constitutional: Yes: Well Nourished, No Distress, Calm Musculoskeletal: Yes: Other Labs: CBC, BMP 02/14/20 07:55 04/04/19 07:55 INR, PTT INR 1.07 (0.83-1.09) 04/04/19 07:55 Assessment/Plan POD #1 s/p Right hemiarthroplasty -Pain control -DVT prophaxis -PT WBAT -Hip precautions -Discharge planning
[2019-04-05 08:56] LABS: BASO % 0.5 % (0-2.0); EOS % 1.2 % (0-4.5); HEMATOCRIT 33.6 % (32.4-45.2); HEMOGLOBIN 11.5 GM/dL (10.7-15.3); LYMPH % 11.4 % (8-40); MCH 30.7 pg (25.7-33.7); MCHC 34.4 g/dl (32.0-36.0); MEAN CELL VOLUME 89.3 fl (80-96); MONO % 10.1 % (3.8-10.2); NEUT % 76.8 % (42.8-82.8); PLATELET COUNT 188 K/MM3 (134-434); RBC 3.76 M/mm3 (3.60-5.2); RDW 12.8 % (11.6-15.6); WHITE BLOOD COUNT 9.8 K/mm3 (4.0-10.0)
[2019-04-05 09:21] LABS: ALBUMIN 2.8 g/dl (3.4-5.0); BILIRUBIN,TOTAL 0.8 mg/dL (0.2-1); BLOOD UREA NITROGEN 24.8 mg/dL (7-18); CREATININE 1.2 mg/dL (0.55-1.3); MAGNESIUM 1.7 mg/dL (1.8-2.4); TOT PROT 6.7 g/dl (6.4-8.2)
[2019-04-05] MEDS: LOSARTAN POTASSIUM 50 MG TABLET (FP) PO SCH (09:30)
[2019-04-05] MEDS: ASPIRIN 325 MG TABLET PO SCH (09:31)
[2019-04-05] MEDS: POLYETHYLENE GLYCOL 3350 119 GM BTL PO SCH (09:31)
[2019-04-05] MEDS ORDERED: PT OWN MED DRAWER 7, Y5N ONE (09:44)
[2019-04-05] MEDS: PANTOPRAZOLE SOD 40 MG SUSPENSION PACKET PO SCH (09:53)
[2019-04-05] MEDS ORDERED: HYDROCHLOROTHIAZIDE 12.5 MG CAPSULE (FP) PO SCH (10:00)
--- NOTE | 2019-04-05 12:46 | PN ---
Physical Exam: SUBJECTIVE: Patient seen and examined. She has no complaints. She says she has no pain in her right hip. OBJECTIVE: Vital Signs Period Temp Pulse Resp BP Sys/Sylvester Pulse Ox Last 24 Hr 98.2 F-99.2 F 83-112 13-20 152-182/78-92 97-100 GENERAL: The patient is awake, alert, and fully oriented, in no acute distress. LUNGS: Breath sounds equal, clear to auscultation bilaterally, no wheezes, no crackles, no accessory muscle use. HEART: Regular rate and rhythm, S1, S2 without murmur, rub or gallop. ABDOMEN: Soft, nontender, nondistended, normoactive bowel sounds, no guarding, no rebound, no hepatosplenomegaly, no masses. EXTREMITIES: 2+ pulses, warm, well-perfused, no edema. Laboratory Results - last 24 hr 04/05/19 04/05/19 07:50 07:50 WBC 9.8 RBC 3.76 Hgb 11.5 Hct 33.6 MCV 89.3 MCH 30.7 MCHC 34.4 RDW 12.8 Plt Count 188 MPV 8.0 Absolute Neuts (auto) 7.5 Neutrophils % 76.8 Lymphocytes % 11.4 Monocytes % 10.1 Eosinophils % 1.2 Basophils % 0.5 Nucleated RBC % 0 Sodium 140 Potassium 4.0 Chloride 106 Carbon Dioxide 26 Anion Gap 9 BUN 24.8 H Creatinine 1.2 Est GFR (CKD-EPI)AfAm 50.84 Est GFR (CKD-EPI)NonAf 43.86 Random Glucose 110 H Calcium 9.0 Magnesium 1.7 L Total Bilirubin 0.8 AST 38 H ALT 20 Alkaline Phosphatase 67 Total Protein 6.7 Albumin 2.8 L Active Medications Generic Name Dose Route Start Last Admin Trade Name Freq PRN Reason Stop Dose Admin Aspirin 325 mg 04/05/19 08:00 04/05/19 09:31 Asa - PO 325 mg DAILY@0800 [facility] Administration Atorvastatin Calcium 20 mg 04/04/19 22:00 04/04/19 21:56 Lipitor - PO 20 mg HS [facility] Administration Docusate Sodium 100 mg 04/04/19 22:00 04/04/19 21:56 Colace - PO 100 mg HS [facility] Administration Fentanyl 50 mcg 04/04/19 11:20 Sublimaze Injection - IVPUSH [id number] PRN PAIN-PACU ORDER X 4 DOSES ONLY Cefazolin Sodium/Dextrose 2 gm in 50 mls @ 100 mls/hr 04/04/19 18:00 09:31 Ancef 2 Gm Premixed Ivpb - IVPB 04/05/19 17:59 100 mls/hr Q8H-IV [facility] Administration Losartan Potassium 100 mg 04/05/19 10:00 04/05/19 09:30 Cozaar - PO 100 mg DAILY [facility] Administration Morphine Sulfate 2 mg 04/04/19 11:56 04/05/19 04:02 Morphine Sulfate IVPUSH 2 mg Q4H PRN Administration PAIN LEVEL 6-10 Ondansetron HCl 4 mg 04/04/19 11:20 Zofran Injection IVPUSH Q6H PRN NAUSEA AND/OR VOMITING Pantoprazole Sodium 40 mg 04/05/19 10:00 04/05/19 09:53 Protonix Packets For Oral Suspension - PO 40 mg DAILY [facility] Administration Polyethylene Glycol 17 gm 04/05/19 10:00 04/05/19 09:31 Miralax (For Daily Use) - PO 17 grams DAILY [facility] Administration Promethazine HCl 12.5 mg 04/04/19 11:20 Phenergan Injection - IVPB Q6H PRN NAUSEA-FOR RESCUE AFTER 15 MIN Senna 1 tab 04/04/19 22:00 04/04/19 21:56 Senna - PO 1 tab HS [facility] Administration ASSESSMENT/PLAN: This is a 78 year old woman with a history of HTN, hyperlipidemia, type 2 DM, stage 3 CKD, anxiety, GERD, benign kidney mass, partial left nephrectomy who presented to the ED with right hip pain after falling at home. 1. Displaced right femoral neck fracture - s/p right hip hemiarthroplasty 04/04 - Pain control - Physical therapy - Aspirin for DVT prophylaxis - Plan for short-term rehab 2. HTN - Continue Cozaar - HCTZ held secondary to dehydration 3. Hyperlipidemia - Continue Lipitor 4. Type 2 DM - Controlled without medication 5. Stage 3 CKD - Stable 6. Anxiety 7. GERD - Continue Protonix 8. History of partial left nephrectomy for kidney mass Visit type - Emergency Visit Emergency Visit: Yes ED Registration Date: 04/02/19 Care time: The patient presented to the Emergency Department on the above date and was hospitalized for further evaluation of their emergent condition. - New Patient This patient is new to me today: Yes Date on this admission: 04/05/19 - Critical Care Critical Care patient: No - Discharge Referral Referred to [facility] Med P.C.: No
--- NOTE | 2019-04-05 14:07 | PN ---
Progress Note (short form) - Note Progress Note: Anesthesiology 78 y.o. woman POD#1 s/p Right Hip Hemiarthroplasty under peripheral nerve block and spinal anesthesia. Pt. doing well. She denies pain in hip. No ON issues. VSS. Stable post-operative course. Continue management as per primary team.
[2019-04-05] MEDS ORDERED: MAGNESIUM OXIDE 400 MG TABLET (FP) PO ONE (19:17)
[2019-04-05] MEDS: DOCUSATE SODIUM 100 MG CAPSULE (FP) PO SCH (21:04)
[2019-04-05] MEDS: ATORVASTATIN CA 20 MG TABLET (FP) PO SCH (21:04)
[2019-04-05] MEDS: SENNOSIDES 8.6MG TABLET (FP) PO SCH (21:05)
--- NOTE | 2019-04-06 08:16 | PN ---
Progress Note, Physician Chief Complaint: s/p right hip hemiartroplasty POD#2 History of Present Illness: 78 F h/o HTN, HLD, NIDDM, anxiety admitted for mechanical fall with R hip fx. Scheduled for R hip ORIF on Sunday with Dr Nolan - Current Medication List Current Medications: Active Medications Aspirin (Asa -) 325 mg PO DAILY@0800 [facility] Last Admin: 04/05/19 09:31 Dose: 325 mg Atorvastatin Calcium (Lipitor -) 20 mg PO [facility] Last Admin: 04/05/19 21:04 Dose: 20 mg Docusate Sodium (Colace -) 100 mg PO HS [facility] Last Admin: 04/05/19 21:04 Dose: 100 mg Fentanyl (Sublimaze Injection -) 50 mcg IVPUSH [id number] PRN PRN Reason: PAIN-PACU ORDER X 4 DOSES ONLY Losartan Potassium (Cozaar -) 100 mg PO DAILY [facility] Last Admin: 04/05/19 09:30 Dose: 100 mg Morphine Sulfate (Morphine Sulfate) 2 mg IVPUSH Q4H PRN PRN Reason: PAIN LEVEL 6-10 Last Admin: 04/05/19 21:05 Dose: 2 mg Ondansetron HCl (Zofran Injection) 4 mg IVPUSH Q6H PRN PRN Reason: NAUSEA AND/OR VOMITING Pantoprazole Sodium (Protonix Packets For Oral Suspension -) 40 mg PO DAILY [facility] Last Admin: 04/05/19 09:53 Dose: 40 mg Polyethylene Glycol (Miralax (For Daily Use) -) 17 gm PO DAILY [facility] Last Admin: 04/05/19 09:31 Dose: 17 grams Promethazine HCl (Phenergan Injection -) 12.5 mg IVPB Q6H PRN PRN Reason: NAUSEA-FOR RESCUE AFTER 15 MIN Senna (Senna -) 1 tab PO [facility] Last Admin: 04/05/19 21:05 Dose: 1 tab - Objective Vital Signs: Vital Signs Temperature 99.9 F H 04/06/19 05:49 Pulse Rate 108 H 04/06/19 05:49 Respiratory Rate 20 04/06/19 05:49 Blood Pressure 148/68 04/06/19 05:49 O2 Sat by Pulse Oximetry (%) 96 04/05/19 20:31 Additional Findings/Remarks: Constitutional: Yes: Well Nourished, Calm, Mild Distress (secomdary to pain) Eyes: Yes: WNL, Conjunctiva Clear HENT: Yes: WNL, Atraumatic, Normocephalic Neck: Yes: WNL, Supple, Trachea Midline Cardiovascular: Yes: WNL, Regular Rate and Rhythm Respiratory: Yes: WNL, Regular, CTA Bilaterally Gastrointestinal: Yes: WNL, Normal Bowel Sounds ...Rectal Exam: Yes: Deferred Genitourinary: Yes: Ferrer Present (with clear yellow urine) Breast(s): Yes: WNL Musculoskeletal: Yes: Other (right hip pain) Extremities: Yes: drsg to right hip CDI Edema: Yes Edema: RLE: Trace Peripheral Pulses WNL: Yes Peripheral Pulses: Left Radial: 2+, Right Radial: 2+, Left Doralis Pedis: 2+, Right Dorsalis Pedis: 2+, Left Femoral: 2+, Right Femoral: 2+ Integumentary: Yes: WNL Neurological: Yes: WNL, Alert, Oriented ...Motor Strength: LLE, RLE (decreased to pain) Psychiatric: Yes: WNL Labs: CBC, BMP 04/05/19 07:50 04/05/19 07:50 INR, PTT INR 1.07 (0.83-1.09) 04/04/19 07:55 Problem List - Problems (1) Prophylactic measure Assessment/Plan: FEN Fluids: adequate PO intake Electrolytes: replete as indicated Nutrition: diabetic diet DVT prophylaxis: heparin sq Dispo: continues to require inpatient care. Full code discharge planning Code(s): Z29.9 - ENCOUNTER FOR PROPHYLACTIC MEASURES, UNSPECIFIED (2) Closed right hip fracture Assessment/Plan: s/p right hip hemiarthroplasty Code(s): S72.001A - FRACTURE OF UNSP PART OF NECK OF RIGHT FEMUR, INIT Qualifiers: Encounter type: initial encounter Qualified Code(s): S72.001A - Fracture of unspecified part of neck of right femur, initial encounter for closed fracture (3) Diabetes Assessment/Plan: BG well controlled BGM AC/HS with novlog sliding scale diabetic diet Code(s): E11.9 - TYPE 2 DIABETES MELLITUS WITHOUT COMPLICATIONS (4) HLD (hyperlipidemia) Assessment/Plan: c/w statin Code(s): E78.5 - HYPERLIPIDEMIA, UNSPECIFIED (5) HTN (hypertension) Assessment/Plan: hctz being held for elevated Cr will start back losartan now and reasses for Hctx in am Code(s): I10 - ESSENTIAL (PRIMARY) HYPERTENSION (6) JACQUES (acute kidney injury) Assessment/Plan: s/p partial nephrectomy Cr 1.[address] Murillo following will need proteinuria workup, can be done as outpt Code(s): N17.9 - ACUTE KIDNEY FAILURE, UNSPECIFIED (7) On isoniazid therapy Assessment/Plan: pt on isoniazid and pyridoxine at home family stated that he room mate at [facility] (12/07) had possible TB and was placed on prophylaxis placed call to Dr Jefferson PCP awaiting response quantiferon pending not producing and sputum will c/w proph Code(s): Z79.899 - OTHER [facility] FLOOR (CURRENT) DRUG THERAPY Visit type - Emergency Visit Emergency Visit: Yes ED Registration Date: 04/02/19 Care time: The patient presented to the Emergency Department on the above date and was hospitalized for further evaluation of their emergent condition. - New Patient This patient is new to me today: No - Critical Care Critical Care patient: No - Discharge Referral Referred to [facility] Med P.C.: No
[2019-04-06] MEDS ORDERED: PT OWN MED DRAWER 7, Y5N ONE (09:54)
[2019-04-06] MEDS: ASPIRIN 325 MG TABLET PO SCH (09:58)
[2019-04-06] MEDS: PANTOPRAZOLE SOD 40 MG SUSPENSION PACKET PO SCH (09:58)
[2019-04-06] MEDS: LOSARTAN POTASSIUM 50 MG TABLET (FP) PO SCH (09:59)
[2019-04-06] MEDS: POLYETHYLENE GLYCOL 3350 119 GM BTL PO SCH (09:59)
[2019-04-06 10:11] LABS: HEMATOCRIT 34.4 % (32.4-45.2); HEMOGLOBIN 11.4 GM/dL (10.7-15.3); MCH 30.2 pg (25.7-33.7); MCHC 33.2 g/dl (32.0-36.0); MEAN CELL VOLUME 90.9 fl (80-96); MEAN PLT VOLUME 8.3 fl (7.5-11.1); PLATELET COUNT 203 K/MM3 (134-434); RBC 3.78 M/mm3 (3.60-5.2); RDW 13.1 % (11.6-15.6); WHITE BLOOD COUNT 11.6 K/mm3 (4.0-10.0)
[2019-04-06] MEDS: MORPHINE SULFATE 2 MG/ML VIAL IVPUSH PRN ×2 (10:29→21:27)
[2019-04-06 10:34] LABS: BLOOD UREA NITROGEN 27.1 mg/dL (7-18); CALCIUM 8.9 mg/dL (8.5-10.1); CREATININE 1.2 mg/dL (0.55-1.3); POTASSIUM 4.2 mmol/L (3.5-5.1)
[2019-04-06] MEDS: ISONIAZID 300 MG TABLET (FP) PO SCH (17:21)
[2019-04-06] MEDS: PYRIDOXINE HCL (B-6) 50 MG TABLET (FP) PO SCH (17:21)
[2019-04-06] MEDS: ATORVASTATIN CA 20 MG TABLET (FP) PO SCH (21:27)
[2019-04-06] MEDS: SENNOSIDES 8.6MG TABLET (FP) PO SCH (21:27)
[2019-04-06] MEDS: DOCUSATE SODIUM 100 MG CAPSULE (FP) PO SCH (21:27)
[2019-04-07] MEDS: MORPHINE SULFATE 2 MG/ML VIAL IVPUSH PRN (04:06)
--- NOTE | 2019-04-07 08:12 | PN ---
Progress Note, Physician Chief Complaint: s/p right hip hemiartroplasty POD#3. Pain is minimal and ambulating a few steps with PT History of Present Illness: 78 F h/o HTN, HLD, NIDDM, anxiety admitted for mechanical fall with R hip fx. S? P right hip arthroplasty POD #3 - Current Medication List Current Medications: Active Medications Aspirin (Asa -) 325 mg PO DAILY@0800 [facility] Last Admin: 04/06/19 09:58 Dose: 325 mg Atorvastatin Calcium (Lipitor -) 20 mg PO HS [facility] Last Admin: 04/06/19 21:27 Dose: 20 mg Docusate Sodium (Colace -) 100 mg PO HS [facility] Last Admin: 04/06/19 21:27 Dose: 100 mg Fentanyl (Sublimaze Injection -) 50 mcg IVPUSH [id number] PRN PRN Reason: PAIN-PACU ORDER X 4 DOSES ONLY Isoniazid (Inh -) 300 mg PO DAILY [facility] Last Admin: 04/06/19 17:21 Dose: 300 mg Losartan Potassium (Cozaar -) 100 mg PO DAILY [facility] Last Admin: 04/06/19 09:59 Dose: 100 mg Morphine Sulfate (Morphine Sulfate) 2 mg IVPUSH Q4H PRN PRN Reason: PAIN LEVEL 6-10 Last Admin: 04/07/19 04:06 Dose: 2 mg Ondansetron HCl (Zofran Injection) 4 mg IVPUSH Q6H PRN PRN Reason: NAUSEA AND/OR VOMITING Pantoprazole Sodium (Protonix Packets For Oral Suspension -) 40 mg PO DAILY [facility] Last Admin: 04/06/19 09:58 Dose: 40 mg Polyethylene Glycol (Miralax (For Daily Use) -) 17 gm PO DAILY [facility] Last Admin: 04/06/19 09:59 Dose: 17 grams Promethazine HCl (Phenergan Injection -) 12.5 mg IVPB Q6H PRN PRN Reason: NAUSEA-FOR RESCUE AFTER 15 MIN Pyridoxine HCl (Vitamin B6 -) 50 mg PO DAILY [facility] Last Admin: 04/06/19 17:21 Dose: 50 mg Senna (Senna -) 1 tab PO [facility] Last Admin: 04/06/19 21:27 Dose: 1 tab - Objective Vital Signs: Vital Signs Temperature 98.4 F 04/07/19 05:29 Pulse Rate 102 H 04/07/19 05:29 Respiratory Rate 20 04/07/19 05:29 Blood Pressure 147/79 04/07/19 05:29 O2 Sat by Pulse Oximetry (%) 96 04/06/19 21:00 Additional Findings/Remarks: Constitutional: Yes: Well Nourished, Calm, Mild Distress (secomdary to pain) Eyes: Yes: WNL, Conjunctiva Clear HENT: Yes: WNL, Atraumatic, Normocephalic Neck: Yes: WNL, Supple, Trachea Midline Cardiovascular: Yes: WNL, Regular Rate and Rhythm Respiratory: Yes: WNL, Regular, CTA Bilaterally Gastrointestinal: Yes: WNL, Normal Bowel Sounds ...Rectal Exam: Yes: Deferred Genitourinary: Yes: Ferrer Present (with clear yellow urine) Breast(s): Yes: WNL Musculoskeletal: Yes: Other (right hip pain) Extremities: Yes: drsg to right hip CDI Edema: Yes Edema: RLE: Trace Peripheral Pulses WNL: Yes Peripheral Pulses: Left Radial: 2+, Right Radial: 2+, Left Doralis Pedis: 2+, Right Dorsalis Pedis: 2+, Left Femoral: 2+, Right Femoral: 2+ Integumentary: Yes: WNL Neurological: Yes: WNL, Alert, Oriented ...Motor Strength: LLE, RLE (decreased to pain) Psychiatric: Yes: WNL Labs: CBC, BMP 04/06/19 08:53 04/06/19 08:53 INR, PTT INR 1.07 (0.83-1.09) 04/04/19 07:55 Problem List - Problems (1) Prophylactic measure Assessment/Plan: FEN Fluids: adequate PO intake Electrolytes: replete as indicated Nutrition: diabetic diet DVT prophylaxis: heparin sq Dispo: continues to require inpatient care. Full code discharge planning SNF v home with services Code(s): Z29.9 - ENCOUNTER FOR PROPHYLACTIC MEASURES, UNSPECIFIED (2) Closed right hip fracture Assessment/Plan: s/p right hip hemiarthroplasty Code(s): S72.001A - FRACTURE OF UNSP PART OF NECK OF RIGHT FEMUR, INIT Qualifiers: Encounter type: initial encounter Qualified Code(s): S72.001A - Fracture of unspecified part of neck of right femur, initial encounter for closed fracture (3) Diabetes Assessment/Plan: BG well controlled BGM AC/HS with novlog sliding scale diabetic diet Code(s): E11.9 - TYPE 2 DIABETES MELLITUS WITHOUT COMPLICATIONS (4) HLD (hyperlipidemia) Assessment/Plan: c/w statin Code(s): E78.5 - HYPERLIPIDEMIA, UNSPECIFIED (5) HTN (hypertension) Assessment/Plan: hctz being held for elevated Cr will start back losartan now and reasses for Hctx in am Code(s): I10 - ESSENTIAL (PRIMARY) HYPERTENSION (6) JACQUES (acute kidney injury) Assessment/Plan: s/p partial nephrectomy Cr 1.[address] Murillo following will need proteinuria workup, can be done as outpt Code(s): N17.9 - ACUTE KIDNEY FAILURE, UNSPECIFIED (7) On isoniazid therapy Assessment/Plan: pt on isoniazid and pyridoxine at home exposure at SNF (12/07) had possible TB and was placed on prophylaxis quantiferon negative will c/w proph as per [facility] guidenlines (6 months) Code(s): Z79.899 - OTHER [facility] (CURRENT) DRUG THERAPY Visit type - Emergency Visit Emergency Visit: Yes ED Registration Date: 04/02/19 Care time: The patient presented to the Emergency Department on the above date and was hospitalized for further evaluation of their emergent condition. - New Patient This patient is new to me today: No - Critical Care Critical Care patient: No - Discharge Referral Referred to [facility] Med P.C.: No
[2019-04-07] MEDS ORDERED: PT OWN MED DRAWER 7, Y5N ONE (08:57)
[2019-04-07] MEDS: ASPIRIN 325 MG TABLET PO SCH (09:04)
[2019-04-07] MEDS: PANTOPRAZOLE SOD 40 MG SUSPENSION PACKET PO SCH (09:04)
[2019-04-07] MEDS: PYRIDOXINE HCL (B-6) 50 MG TABLET (FP) PO SCH (09:04)
[2019-04-07] MEDS: ISONIAZID 300 MG TABLET (FP) PO SCH (09:04)
[2019-04-07] MEDS: LOSARTAN POTASSIUM 50 MG TABLET (FP) PO SCH (09:04)
[2019-04-07] MEDS: POLYETHYLENE GLYCOL 3350 119 GM BTL PO SCH (09:05)
--- NOTE | 2019-04-07 14:44 | PN ---
Progress Note, Physician History of Present Illness: Pt seen and examined at bedside. She is awake and alert. - Current Medication List Current Medications: Active Medications Aspirin (Asa -) 325 mg PO DAILY@0800 [facility] Last Admin: 04/07/19 09:04 Dose: 325 mg Atorvastatin Calcium (Lipitor -) 20 mg PO [facility] Last Admin: 04/06/19 21:27 Dose: 20 mg Docusate Sodium (Colace -) 100 mg PO [facility] Last Admin: 04/06/19 21:27 Dose: 100 mg Fentanyl (Sublimaze Injection -) 50 mcg IVPUSH [id number] PRN PRN Reason: PAIN-PACU ORDER X 4 DOSES ONLY Isoniazid (Inh -) 300 mg PO DAILY [facility] Last Admin: 04/07/19 09:04 Dose: 300 mg Losartan Potassium (Cozaar -) 100 mg PO DAILY [facility] Last Admin: 04/07/19 09:04 Dose: 100 mg Ondansetron HCl (Zofran Injection) 4 mg IVPUSH Q6H PRN PRN Reason: NAUSEA AND/OR VOMITING Pantoprazole Sodium (Protonix Packets For Oral Suspension -) 40 mg PO DAILY [facility] Last Admin: 04/07/19 09:04 Dose: 40 mg Polyethylene Glycol (Miralax (For Daily Use) -) 17 gm PO DAILY [facility] Last Admin: 04/07/19 09:05 Dose: 17 grams Promethazine HCl (Phenergan Injection -) 12.5 mg IVPB Q6H PRN PRN Reason: NAUSEA-FOR RESCUE AFTER 15 MIN Pyridoxine HCl (Vitamin B6 -) 50 mg PO DAILY [facility] Last Admin: 04/07/19 09:04 Dose: 50 mg Senna (Senna -) 1 tab PO [facility] Last Admin: 04/06/19 21:27 Dose: 1 tab - Objective Vital Signs: Vital Signs Temperature 99.2 F 04/07/19 14:35 Pulse Rate 105 H 04/07/19 14:35 Respiratory Rate 20 04/07/19 14:35 Blood Pressure 157/78 04/07/19 14:35 O2 Sat by Pulse Oximetry (%) 96 04/07/19 09:00 Constitutional: Yes: Calm Eyes: Yes: Conjunctiva Clear HENT: Yes: Atraumatic Cardiovascular: Yes: S1, S2 Respiratory: Yes: CTA Bilaterally Gastrointestinal: Yes: Soft Genitourinary: Yes: WNL Edema: No Neurological: Yes: Oriented Psychiatric: Yes: Oriented Labs: CBC, BMP 04/06/19 08:53 04/06/19 08:53 INR, PTT INR 1.07 (0.83-1.09) 04/04/19 07:55 Assessment/Plan Current Medications Generic Name Dose Route Start Last Admin Trade Name Freq PRN Reason Stop Dose Admin Aspirin 325 mg 04/05/19 08:00 04/07/19 09:04 Asa - PO 325 mg DAILY@0800 [facility] Administration Atorvastatin Calcium 20 mg 04/04/19 22:00 04/06/19 21:27 Lipitor - PO 20 mg HS [facility] Administration Docusate Sodium 100 mg 04/04/19 22:00 04/06/19 21:27 Colace - PO 100 mg HS [facility] Administration Fentanyl 50 mcg 04/04/19 11:20 Sublimaze Injection - IVPUSH [id number] PRN PAIN-PACU ORDER X 4 DOSES ONLY Isoniazid 300 mg 04/06/19 16:00 04/07/19 09:04 Inh - PO 300 mg DAILY [facility] Administration Losartan Potassium 100 mg 04/05/19 10:00 04/07/19 09:04 Cozaar - PO 100 mg DAILY [facility] Administration Ondansetron HCl 4 mg 04/04/19 11:20 Zofran Injection IVPUSH Q6H PRN NAUSEA AND/OR VOMITING Pantoprazole Sodium 40 mg 04/05/19 10:00 04/07/19 09:04 Protonix Packets For Oral Suspension - PO 40 mg DAILY [facility] Administration Polyethylene Glycol 17 gm 04/05/19 10:00 04/07/19 09:05 Miralax (For Daily Use) - PO 17 grams DAILY [facility] Administration Promethazine HCl 12.5 mg 04/04/19 11:20 Phenergan Injection - IVPB Q6H PRN NAUSEA-FOR RESCUE AFTER 15 MIN Pyridoxine HCl 50 mg 04/06/19 16:00 04/07/19 09:04 Vitamin B6 - PO 50 mg DAILY [facility] Administration Senna 1 tab 04/04/19 22:00 04/06/19 21:27 Senna - PO 1 tab HS [facility] Administration Impression 1. CKD 2. hypercalcemia 3. proteinuria 4. dm 5. anxiety 6. s/p hip fracture Plan - repeat ua - check prt to talkback [employer] ratio - will need proteinuria workup, can do as outpt, this was explained to pt - monitor lytes - con losartan as it will help with proteinuria
[2019-04-07] MEDS: traMADol HCL 50 MG TABLET PO PRN ×2 (15:36→21:38)
[2019-04-07] MEDS: ATORVASTATIN CA 20 MG TABLET (FP) PO SCH (21:38)
[2019-04-07] MEDS: SENNOSIDES 8.6MG TABLET (FP) PO SCH (21:38)
[2019-04-07] MEDS: DOCUSATE SODIUM 100 MG CAPSULE (FP) PO SCH (21:38)
[2019-04-08] MEDS ORDERED: PT OWN MED DRAWER 7, Y5N ONE (08:57)
[2019-04-08] MEDS: traMADol HCL 50 MG TABLET PO PRN ×2 (08:58→21:09)
[2019-04-08] MEDS: ASPIRIN 325 MG TABLET PO SCH (08:58)
[2019-04-08] MEDS: POLYETHYLENE GLYCOL 3350 119 GM BTL PO SCH (09:04)
[2019-04-08] MEDS: PYRIDOXINE HCL (B-6) 50 MG TABLET (FP) PO SCH (09:55)
[2019-04-08] MEDS: ISONIAZID 300 MG TABLET (FP) PO SCH (09:56)
[2019-04-08] MEDS: PANTOPRAZOLE SOD 40 MG SUSPENSION PACKET PO SCH (09:56)
[2019-04-08] MEDS: LOSARTAN POTASSIUM 50 MG TABLET (FP) PO SCH (09:57)
--- NOTE | 2019-04-08 12:04 | PN ---
Physical Exam: SUBJECTIVE: Patient seen and examined at the bedside. She wants to go to rehab and not home, she states her insurance will cover a rehab stay. OBJECTIVE: Patient is a 78 year old female with a significant past medical history of hypertension, hyperlipidemia, diabetes and anxiety. She is s/p right hip hemiartroplasty POD#4 after sustaining a mechanical fall. Vital Signs Period Temp Pulse Resp BP Sys/Sylvester Pulse Ox Last 24 Hr 97.8 F-99.2 F 105-117 20-24 151-160/75-87 96-100 GENERAL: The patient is awake, alert, and fully oriented, in no acute distress. HEAD: Normal with no signs of trauma. EYES: PERRL, extraocular movements intact, sclera anicteric, conjunctiva clear. No ptosis. ENT: Ears normal, nares patent, oropharynx clear without exudates, moist mucous membranes. NECK: Trachea midline, full range of motion, supple. LUNGS: Breath sounds equal, clear to auscultation bilaterally, no wheezes, no crackles, no accessory muscle use. HEART: Regular rate and rhythm ABDOMEN: Soft, nontender, nondistended, normoactive bowel sounds EXTREMITIES: s/p right hip hemiatroplasty NEUROLOGICAL: Normal speech, gait not observed. Active Medications Generic Name Dose Route Start Last Admin Trade Name Freq PRN Reason Stop Dose Admin Aspirin 325 mg 04/05/19 08:00 04/08/19 08:58 Asa - PO 325 mg DAILY@0800 [facility] Administration Atorvastatin Calcium 20 mg 04/04/19 22:00 04/07/19 21:38 Lipitor - PO 20 mg HS [facility] Administration Docusate Sodium 100 mg 04/04/19 22:00 04/07/19 21:38 Colace - PO 100 mg HS [facility] Administration Isoniazid 300 mg 04/06/19 16:00 04/08/19 09:56 Inh - PO 300 mg DAILY [facility] Administration Losartan Potassium 100 mg 04/05/19 10:00 04/08/19 09:57 Cozaar - PO 100 mg DAILY [facility] Administration Ondansetron HCl 4 mg 04/04/19 11:20 Zofran Injection IVPUSH Q6H PRN NAUSEA AND/OR VOMITING Pantoprazole Sodium 40 mg 04/05/19 10:00 04/08/19 09:56 Protonix Packets For Oral Suspension - PO 40 mg DAILY [facility] Administration Polyethylene Glycol 17 gm 04/05/19 10:00 04/08/19 09:04 Miralax (For Daily Use) - PO 17 grams DAILY [facility] Administration Promethazine HCl 12.5 mg 04/04/19 11:20 Phenergan Injection - IVPB Q6H PRN NAUSEA-FOR RESCUE AFTER 15 MIN Pyridoxine HCl 50 mg 04/06/19 16:00 04/08/19 09:55 Vitamin B6 - PO 50 mg DAILY [facility] Administration Senna 1 tab 04/04/19 22:00 04/07/19 21:38 Senna - PO 1 tab HS [facility] Administration Tramadol HCl 50 mg 04/07/19 15:18 04/08/19 08:58 Ultram - PO 50 mg Q6H PRN Administration PAIN LEVEL 4 - 6 ASSESSMENT/PLAN: Problem List - Problems (1) Closed right hip fracture Assessment/Plan: s/p right hip hemiathroplasty on full dose ASA for d/c to SNF vs home. heparin bid Code(s): S72.001A - FRACTURE OF UNSP PART OF NECK OF RIGHT FEMUR, INIT Qualifiers: Encounter type: initial encounter Qualified Code(s): S72.001A - Fracture of unspecified part of neck of right femur, initial encounter for closed fracture (2) On isoniazid therapy Assessment/Plan: pt on isoniazid and pyridoxine at home exposure at SNF (12/07) had possible TB and was placed on prophylaxis quantiferon negative will c/w proph as per [facility] guidenlines (6 months) Code(s): Z79.899 - OTHER SHELTER (CURRENT) DRUG THERAPY (3) JACQUES (acute kidney injury) Assessment/Plan: s/p partial nephrectomy Cr 1.[address] Murillo following will need proteinuria workup, can be done as outpt Code(s): N17.9 - ACUTE KIDNEY FAILURE, UNSPECIFIED (4) Diabetes Assessment/Plan: monitor bgms Code(s): E11.9 - TYPE 2 DIABETES MELLITUS WITHOUT COMPLICATIONS (5) HLD (hyperlipidemia) Assessment/Plan: Lipitor 20 @ hs Code(s): E78.5 - HYPERLIPIDEMIA, UNSPECIFIED (6) HTN (hypertension) Assessment/Plan: on coozar daily Code(s): I10 - ESSENTIAL (PRIMARY) HYPERTENSION (7) Prophylactic measure Assessment/Plan: physical therapy heparin full code tolerating PO monitor electrolytes Code(s): Z29.9 - ENCOUNTER FOR PROPHYLACTIC MEASURES, UNSPECIFIED Visit type - Emergency Visit Emergency Visit: Yes ED Registration Date: 04/02/19 Care time: The patient presented to the Emergency Department on the above date and was hospitalized for further evaluation of their emergent condition. - New Patient This patient is new to me today: Yes Date on this admission: 04/08/19 - Critical Care Critical Care patient: No - Discharge Referral Referred to [facility] Med P.C.: No
--- NOTE | 2019-04-08 15:13 | PATH ---
Surgical Pathology Report Patient Name: JACQUELINE WAHL [facility]. Rec. #: [id number] /Age/Gender: 1940 (Age: 78) / F Account: [id number] Location: [address] [place] [address]/[facility] Taken: 04/04/2019 Received: 04/04/2019 Reported: 04/08/2019 Physicians: Emile Garcia M.D. Specimen(s) Received RIGHT FEMORAL HEAD Clinical History Right hip closed fracture Final Diagnosis Bone, FEMORAL HEAD, right, hemiarthroplasty: Bone with interstitial hemorrhage consistent with fracture. Electronically Signed Anca Zepeda M.D. Gross Description Received in formalin, labeled "right femoral head," is a 4.0 x 4.0 x 3.1 cm. femoral head with no femoral neck attached. The margin of resection is red-brown, jagged and hemorrhagic. No areas of eburnation are identified. The remaining articular surface is neal-yellow and focally granular. The underlying trabecular bone is yellow, hard and focally hemorrhagic. A commercial representative section is submitted in one cassette, following decalcification. /04/07/2019 [facility]04/07/2019
--- NOTE | 2019-04-08 16:40 | PN ---
Progress Note, Physician History of Present Illness: Pt seen and examined. She has no complaints. - Current Medication List Current Medications: Active Medications Aspirin (Asa -) 325 mg PO DAILY@0800 [facility] Last Admin: 04/08/19 08:58 Dose: 325 mg Atorvastatin Calcium (Lipitor -) [address] [facility] Last Admin: 04/07/19 21:38 Dose: 20 mg Docusate Sodium (Colace -) 100 mg PO HS [facility] Last Admin: 04/07/19 21:38 Dose: 100 mg Heparin Sodium (Porcine) (Heparin -) 5,000 unit SQ BID [facility] Isoniazid (Inh -) 300 mg PO DAILY [facility] Last Admin: 04/08/19 09:56 Dose: 300 mg Losartan Potassium (Cozaar -) 100 mg PO DAILY [facility] Last Admin: 04/08/19 09:57 Dose: 100 mg Ondansetron HCl (Zofran Injection) 4 mg IVPUSH Q6H PRN PRN Reason: NAUSEA AND/OR VOMITING Pantoprazole Sodium (Protonix Packets For Oral Suspension -) 40 mg PO DAILY [facility] Last Admin: 04/08/19 09:56 Dose: 40 mg Polyethylene Glycol (Miralax (For Daily Use) -) 17 gm PO DAILY [facility] Last Admin: 04/08/19 09:04 Dose: 17 grams Promethazine HCl (Phenergan Injection -) 12.5 mg IVPB Q6H PRN PRN Reason: NAUSEA-FOR RESCUE AFTER 15 MIN Pyridoxine HCl (Vitamin B6 -) 50 mg PO DAILY [facility] Last Admin: 04/08/19 09:55 Dose: 50 mg Senna (Senna -) [address] [facility] Last Admin: 04/07/19 21:38 Dose: 1 tab Tramadol HCl (Ultram -) 50 mg PO Q6H PRN PRN Reason: PAIN LEVEL 4 - 6 Last Admin: 04/08/19 08:58 Dose: 50 mg - Objective Vital Signs: Vital Signs Temperature 98.5 F 04/08/19 14:42 Pulse Rate 106 H 04/08/19 14:42 Respiratory Rate 20 04/08/19 14:42 Blood Pressure 151/80 04/08/19 14:42 O2 Sat by Pulse Oximetry (%) 100 04/08/19 09:00 Constitutional: Yes: Calm Eyes: Yes: Conjunctiva Clear HENT: Yes: Atraumatic Cardiovascular: Yes: S1, S2 Gastrointestinal: Yes: Soft Genitourinary: Yes: WNL Edema: No Neurological: Yes: Oriented Psychiatric: Yes: Oriented Labs: CBC, BMP 04/06/19 08:53 04/06/19 08:53 INR, PTT INR 1.07 (0.83-1.09) 04/04/19 07:55 Assessment/Plan Current Medications Generic Name Dose Route Start Last Admin Trade Name Freq PRN Reason Stop Dose Admin Aspirin 325 mg 04/05/19 08:00 04/08/19 08:58 Asa - PO 325 mg DAILY@0800 [facility] Administration Atorvastatin Calcium 20 mg 04/04/19 22:00 04/07/19 21:38 Lipitor - PO 20 mg HS [facility] Administration Docusate Sodium 100 mg 04/04/19 22:00 04/07/19 21:38 Colace - PO 100 mg HS [facility] Administration Heparin Sodium (Porcine) 5,000 unit 04/08/19 22:00 Heparin - SQ BID [facility] Isoniazid 300 mg 04/06/19 16:00 04/08/19 09:56 Inh - PO 300 mg DAILY [facility] Administration Losartan Potassium 100 mg 04/05/19 10:00 04/08/19 09:57 Cozaar - PO 100 mg DAILY [facility] Administration Ondansetron HCl 4 mg 04/04/19 11:20 Zofran Injection IVPUSH Q6H PRN NAUSEA AND/OR VOMITING Pantoprazole Sodium 40 mg 04/05/19 10:00 04/08/19 09:56 Protonix Packets For Oral Suspension - PO 40 mg DAILY [facility] Administration Polyethylene Glycol 17 gm 04/05/19 10:00 04/08/19 09:04 Miralax (For Daily Use) - PO 17 grams DAILY [facility] Administration Promethazine HCl 12.5 mg 04/04/19 11:20 Phenergan Injection - IVPB Q6H PRN NAUSEA-FOR RESCUE AFTER 15 MIN Pyridoxine HCl 50 mg 04/06/19 16:00 04/08/19 09:55 Vitamin B6 - PO 50 mg DAILY [facility] Administration Senna 1 tab 04/04/19 22:00 04/07/19 21:38 Senna - PO 1 tab HS [facility] Administration Tramadol HCl 50 mg 04/07/19 15:18 04/08/19 08:58 Ultram - PO 50 mg Q6H PRN Administration PAIN LEVEL 4 - 6 Impression 1. CKD 2. hypercalcemia 3. proteinuria 4. dm 5. anxiety 6. s/p hip fracture Plan - will re-order ua and prt to [employer] ratio - repeat cmp in am - further workup can be done as outpt - con losartan as it will help with proteinuria
[2019-04-08] MEDS: HEPARIN NA (PORCINE) 5,000 UNITS/ML 1ML VIAL SQ SCH (21:09)
[2019-04-08] MEDS: DOCUSATE SODIUM 100 MG CAPSULE (FP) PO SCH (21:09)
[2019-04-08] MEDS: ATORVASTATIN CA 20 MG TABLET (FP) PO SCH (21:09)
[2019-04-08] MEDS: SENNOSIDES 8.6MG TABLET (FP) PO SCH (21:09)
[2019-04-09] MEDS: traMADol HCL 50 MG TABLET PO PRN ×2 (08:32→14:46)
[2019-04-09] MEDS: ASPIRIN 325 MG TABLET PO SCH (08:32)
[2019-04-09 09:43] LABS: ALBUMIN 2.4 g/dl (3.4-5.0); BILIRUBIN,TOTAL 0.5 mg/dL (0.2-1); BLOOD UREA NITROGEN 39.2 mg/dL (7-18); CALCIUM 8.7 mg/dL (8.5-10.1); CREATININE 1.4 mg/dL (0.55-1.3); POTASSIUM 4.3 mmol/L (3.5-5.1); TOT PROT 6.5 g/dl (6.4-8.2)
[2019-04-09] MEDS: HEPARIN NA (PORCINE) 5,000 UNITS/ML 1ML VIAL SQ SCH (10:11)
[2019-04-09] MEDS: PANTOPRAZOLE SOD 40 MG SUSPENSION PACKET PO SCH ×2 (10:11→14:35)
[2019-04-09] MEDS: LOSARTAN POTASSIUM 50 MG TABLET (FP) PO SCH (10:12)
[2019-04-09] MEDS: PYRIDOXINE HCL (B-6) 50 MG TABLET (FP) PO SCH (10:12)
[2019-04-09] MEDS: POLYETHYLENE GLYCOL 3350 119 GM BTL PO SCH ×2 (10:12→10:21)
[2019-04-09] MEDS: ISONIAZID 300 MG TABLET (FP) PO SCH (10:12)
[2019-04-09 10:16] VITALS: BP 149/76; PULSE 106; TEMP 98
--- NOTE | 2019-04-09 11:12 | PN ---
Progress Note (short form) - Note Progress Note: Ortho Pt seen and examined s/p right hip lynn Selected Entries 04/09/19 09:25 Temperature 98 F Pulse Rate 106 H Respiratory 20 Rate Blood Pressure 149/76 Laboratory Tests 04/06/19 08:53 WBC 11.6 H Hgb 11.4 Hct 34.4 Plt Count 203 dressing c/d/i, calf soft, nt nvi a/p PT hip precautions dvt ppx pain control d/c planning
--- NOTE | 2019-04-09 11:56 | DS ---
Physical Exam: SUBJECTIVE: Patient seen and examined. denies pain or discomfort. Wants to go to rehab. OBJECTIVE: Patient is a 78 year old female with a significant past medical history of hypertension, hyperlipidemia, diabetes and anxiety. She is s/p right hip hemiartroplasty POD#5 after sustaining a mechanical fall. Patient for discharge to [place] rehab today. Vital Signs Period Temp Pulse Resp BP Sys/Sylvester Pulse Ox Last 24 Hr 98 F-98.5 F 93-106 20-20 130-151/70-80 100-100 PHYSICAL EXAM GENERAL: The patient is awake, alert, and fully oriented, in no acute distress. HEAD: Normal with no signs of trauma. EYES: PERRL, extraocular movements intact, sclera anicteric, conjunctiva clear. No ptosis. ENT: Ears normal, nares patent, oropharynx clear without exudates, moist mucous membranes. NECK: Trachea midline, full range of motion, supple. LUNGS: Breath sounds equal, clear to auscultation bilaterally, no wheezes, no crackles, no accessory muscle use. HEART: Regular rate and rhythm ABDOMEN: Soft, nontender, nondistended, normoactive bowel sounds EXTREMITIES: s/p right hip hemiatroplasty NEUROLOGICAL: Normal speech, gait not observed. LABS Laboratory Results - last 24 hr 04/09/19 07:58 Sodium 138 Potassium 4.3 Chloride 105 Carbon Dioxide 24 Anion Gap 9 BUN 39.2 H Creatinine 1.4 H Est GFR (CKD-EPI)AfAm 42.19 Est GFR (CKD-EPI)NonAf 36.41 Random Glucose 84 Calcium 8.7 Total Bilirubin 0.5 AST 126 H ALT 99 H Alkaline Phosphatase 132 H Total Protein 6.5 Albumin 2.4 L HOSPITAL COURSE: Date of Admission:04/02/19 Date of Discharge: 04/09/19 Minutes to complete discharge: 45 Discharge Summary Problems reviewed: Yes Reason For Visit: CLOSED FRACTURE OF RIGHT HIP Current Active Problems JACQUES (acute kidney injury) (Acute) Closed right hip fracture (Acute) On isoniazid therapy (Acute) Prophylactic measure (Acute) Condition: Improved - Instructions Diet, Activity, Other Instructions: Discharge to [place] re[facility] Referrals: Hyacinth Murillo MD [Staff Physician] - Rosana Walker [Primary Care Provider] - Disposition: HALFWAY FACILITY - Home Medications Comprehensive Discharge Medication List: Ambulatory Orders Atorvastatin Ca [Lipitor] 20 mg PO HS 12/30/15 Isoniazid 300 mg PO DAILY 04/02/19 Pyridoxine HCl (Vitamin B6) [Pyridoxine HCl] 50 mg PO DAILY 04/02/19 Aspirin [ASA -] 325 mg PO DAILY@0800 tablet 04/09/19 Docusate Sodium [Colace -] 100 mg PO HS capsule 04/09/19 Heparin - 5,000 unit SQ BID vial 04/09/19 Losartan Potassium [Cozaar -] 100 mg PO DAILY tablet 04/09/19 Ondansetron Injection [Zofran Injection] 4 mg IVPUSH Q6H PRN vial 04/09/19 Pantoprazole Suspension [Protonix Packets For Oral Suspension -] 40 mg PO DAILY packet 04/09/19 Polyethylene Glycol 3350 [Miralax 119 gm Btl -] 17 gm PO DAILY bottle 04/09/19 Sennosides [Senna -] 1 tab PO HS tablet 04/09/19 Problem List - Problems (1) Closed right hip fracture Assessment/Plan: s/p right hip hemiathroplasty on full dose ASA for d/c to rehab heparin bid Code(s): S72.001A - FRACTURE OF UNSP PART OF NECK OF RIGHT FEMUR, INIT Qualifiers: Encounter type: initial encounter Qualified Code(s): S72.001A - Fracture of unspecified part of neck of right femur, initial encounter for closed fracture (2) On isoniazid therapy Assessment/Plan: pt on isoniazid and pyridoxine at home exposure at SNF (12/07) had possible TB and was placed on prophylaxis quantiferon negative will c/w proph as per TAMRA guidenlines (6 months) Code(s): Z79.899 - OTHER POP SINGER (CURRENT) DRUG THERAPY (3) JACQUES (acute kidney injury) Assessment/Plan: s/p partial nephrectomy Cr 1.[address] Murillo following will need proteinuria workup, can be done as outpt Code(s): N17.9 - ACUTE KIDNEY FAILURE, UNSPECIFIED (4) Diabetes Assessment/Plan: monitor bgms Code(s): E11.9 - TYPE 2 DIABETES MELLITUS WITHOUT COMPLICATIONS (5) HLD (hyperlipidemia) Assessment/Plan: Lipitor 20 @ hs Code(s): E78.5 - HYPERLIPIDEMIA, UNSPECIFIED (6) HTN (hypertension) Assessment/Plan: on coozar daily Code(s): I10 - ESSENTIAL (PRIMARY) HYPERTENSION (7) Prophylactic measure Assessment/Plan: physical therapy heparin full code tolerating PO monitor electrolytes Code(s): Z29.9 - ENCOUNTER FOR PROPHYLACTIC MEASURES, UNSPECIFIED This patient is new to me today: No Emergency Visit: Yes ED Registration Date: 04/02/19 Care time: The patient presented to the Emergency Department on the above date and was hospitalized for further evaluation of their emergent condition. Critical Care patient: No - Discharge Referral Referred to [facility] No
[2019-04-09 12:20] LABS: EPI CELLS 1.2 /HPF (0-5/HPF); HYALINE CASTS 2 /lpf (0-8); URINE APPEARANCE CLOUDY; URINE BACTERIA 72.4 /hpf (NEGATIVE); URINE BILIRUBIN NEGATIVE (NEGATIVE); URINE COLOR YELLOW; URINE GLUCOSE (UA) NEGATIVE (NEGATIVE); URINE KETONE NEGATIVE (NEGATIVE); URINE LEUK ESTERASE 1+ (NEGATIVE); URINE NITRITE NEGATIVE (NEGATIVE); URINE PROTEIN 2+ (NEGATIVE); URINE WBC 6 /hpf (0-5)
--- NOTE | 2019-04-09 13:18 | PN ---
Progress Note, Physician History of Present Illness: Pt seen and examined at bedside. She is awake and alert. - Current Medication List Current Medications: Active Medications Aspirin (Asa -) 325 mg PO DAILY@0800 [facility] Last Admin: 04/09/19 08:32 Dose: 325 mg Atorvastatin Calcium (Lipitor -) 20 mg PO HS [facility] Last Admin: 04/08/19 21:09 Dose: 20 mg Docusate Sodium (Colace -) 100 mg PO [facility] Last Admin: 04/08/19 21:09 Dose: 100 mg Heparin Sodium (Porcine) (Heparin -) 5,000 unit SQ BID [facility] Last Admin: 04/09/19 10:11 Dose: 5,000 unit Isoniazid (Inh -) 300 mg PO DAILY [facility] Last Admin: 04/09/19 10:12 Dose: 300 mg Losartan Potassium (Cozaar -) 100 mg PO DAILY [facility] Last Admin: 04/09/19 10:12 Dose: 100 mg Ondansetron HCl (Zofran Injection) 4 mg IVPUSH Q6H PRN PRN Reason: NAUSEA AND/OR VOMITING Pantoprazole Sodium (Protonix Packets For Oral Suspension -) 40 mg PO DAILY [facility] Last Admin: 04/08/19 09:56 Dose: 40 mg Polyethylene Glycol (Miralax (For Daily Use) -) 17 gm PO DAILY [facility] Last Admin: 04/09/19 10:21 Dose: Not Given Promethazine HCl (Phenergan Injection -) 12.5 mg IVPB Q6H PRN PRN Reason: NAUSEA-FOR RESCUE AFTER 15 MIN Pyridoxine HCl (Vitamin B6 -) 50 mg PO DAILY [facility] Last Admin: 04/09/19 10:12 Dose: 50 mg Senna (Senna -) 1 tab PO [facility] Last Admin: 04/08/19 21:09 Dose: 1 tab Tramadol HCl (Ultram -) 50 mg PO Q6H PRN PRN Reason: PAIN LEVEL 4 - 6 Last Admin: 04/09/19 08:32 Dose: 50 mg - Objective Vital Signs: Vital Signs Temperature 98 F 04/09/19 09:25 Pulse Rate 106 H 04/09/19 09:25 Respiratory Rate 20 04/09/19 09:25 Blood Pressure 149/76 04/09/19 09:25 O2 Sat by Pulse Oximetry (%) 100 04/09/19 09:00 Constitutional: Yes: Calm Eyes: Yes: Conjunctiva Clear HENT: Yes: Atraumatic Cardiovascular: Yes: S1, S2 Respiratory: Yes: CTA Bilaterally Gastrointestinal: Yes: Soft Genitourinary: Yes: WNL Edema: No Neurological: Yes: Oriented Psychiatric: Yes: Oriented Labs: CBC, BMP 04/06/19 08:53 04/09/19 07:58 INR, PTT INR 1.07 (0.83-1.09) 04/04/19 07:55 Assessment/Plan Current Medications Generic Name Dose Route Start Last Admin Trade Name Freq PRN Reason Stop Dose Admin Aspirin 325 mg 04/05/19 08:00 04/09/19 08:32 Asa - PO 325 mg DAILY@0800 [facility] Administration Atorvastatin Calcium 20 mg 04/04/19 22:00 04/08/19 21:09 Lipitor - PO 20 mg HS [facility] Administration Docusate Sodium 100 mg 04/04/19 22:00 04/08/19 21:09 Colace - PO 100 mg HS [facility] Administration Heparin Sodium (Porcine) 5,000 unit 04/08/19 22:00 04/09/19 10:11 Heparin - SQ 5,000 unit BID [facility] Administration Isoniazid 300 mg 04/06/19 16:00 04/09/19 10:12 Inh - PO 300 mg DAILY [facility] Administration Losartan Potassium 100 mg 04/05/19 10:00 04/09/19 10:12 Cozaar - PO 100 mg DAILY [facility] Administration Ondansetron HCl 4 mg 04/04/19 11:20 Zofran Injection IVPUSH Q6H PRN NAUSEA AND/OR VOMITING Pantoprazole Sodium 40 mg 04/05/19 10:00 04/08/19 09:56 Protonix Packets For Oral Suspension - PO 40 mg DAILY [facility] Administration Polyethylene Glycol 17 gm 04/05/19 10:00 04/09/19 10:21 Miralax (For Daily Use) - PO Not Given DAILY [facility] Promethazine HCl 12.5 mg 04/04/19 11:20 Phenergan Injection - IVPB Q6H PRN NAUSEA-FOR RESCUE AFTER 15 MIN Pyridoxine HCl 50 mg 04/06/19 16:00 04/09/19 10:12 Vitamin B6 - PO 50 mg DAILY [facility] Administration Senna 1 tab 04/04/19 22:00 04/08/19 21:09 Senna - PO 1 tab HS [facility]ITA Administration Tramadol HCl 50 mg 04/07/19 15:18 04/09/19 08:32 Ultram - PO 50 mg Q6H PRN Administration PAIN LEVEL 4 - 6 Laboratory Tests 04/09/19 04/09/19 09:40 09:40 Urine Protein 2+ H Protein/Creatinin Ratio 0.7 Impression 1. CKD 2. hypercalcemia 3. proteinuria 4. dm 5. anxiety 6. s/p hip fracture Plan - repeat ua reviewed, specimen was not a clean catch - protein improving - discussed with pt, she should follow as outpt for further workup - discussed with medical team - con losartan as it will help with proteinuria
[2019-04-09] MEDS ORDERED: PT OWN MED DRAWER 7, Y5N ONE (15:13)
[2019-04-09 15:30] LABS: URINE RBC 0 /hpf (0-4)
== END 2019-04-09 15:47 | DRG 470 ==
LOC: JER 14:33 → JERBED 18:14 → J6S 04-03 12:20
PROVIDERS: ATTEND Nurse Practitioner Family
PROC: 0SRR0JA Replacement of Right Hip Joint, Femoral Surface with Synthetic Substitute, Uncemented, Open Approach (ICD-10-PCS; principal; 2019-04-04 10:00)
DX: S72.001A Fracture of unspecified part of neck of right femur, initial encounter for closed fracture (principal); N17.9 Acute kidney failure, unspecified; E78.5 Hyperlipidemia, unspecified; F41.9 Anxiety disorder, unspecified; K21.9 Gastro-esophageal reflux disease without esophagitis; I12.9 Hypertensive chronic kidney disease with stage 1 through stage 4 chronic kidney disease, or unspecified chronic kidney disease; N18.3 Chronic kidney disease, stage 3 (moderate); E83.52 Hypercalcemia; E11.22 Type 2 diabetes mellitus with diabetic chronic kidney disease; W01.0XXA Fall on same level from slipping, tripping and stumbling without subsequent striking against object, initial encounter; Y92.098 Other place in other non-institutional residence as the place of occurrence of the external cause; Z79.899 Other long term (current) drug therapy; Z90.5 Acquired absence of kidney
CPT/HCPCS: 36415; 70450-TC; 71045-TC-FY; 71111-TC-FY; 72125-TC; 73502-TC-RT-FY; 73523-TC-FY; 73552-TC-RT-FY; 80048; 80053; 81003; 82550; 82553; 82570; 83735; 84156; 85025; 85027; 85610; 85730; 86480; 86850; 86900; 86901; 87086; 88305-TC; 88311-TC; 93005; 93010; 93306-TC; 94760; 97116-GP; 97162-GP; 99285-25; J0131; J1644; J7030